=== PATIENT | male | born 1960 | race African-American/Black ===

== ENCOUNTER 2018-04-30 17:11 | Inpatient (IN) | payer OTHER ==
[2018-04-30 19:06] VITALS: BMI 24.3
[2018-04-30] MEDS ORDERED: MELATONIN 5 MG TABLETS PO PRN (22:00)
--- NOTE | 2018-04-30 22:31 | HP ---
CIWA Score - CIWA Score Nausea/Vomitin-No Nausea/No Vomiting Muscle Tremors: 4-Moderate,w/Arms Extend Anxiety: 4-Mod. Anxious/Guarded Agitation: 4-Moderately Restless Paroxysmal Sweats: 3 Orientation: 1-Uncertain about Date Tacttile Disturbances: 0-None Auditory Disturbances: 0-None Visual Disturbances: 0-None Headache: 0-None Present CIWA-Ar Total Score: 16 Admission ROS BHS - HPI Chief Complaint: SEEKING DETOX TXMENT FOR ETOH WITHDRAWAL SX'S Allergies/Adverse Reactions: Allergies Allergy/AdvReac Type Severity Reaction Status Date / Time No Known Allergies Allergy Verified 04/30/18 22:23 History of Present Illness: 57 Y.O. MALE WITH LONG HX/O ALCOHOLISM HERE FOR DETOX. CLIENT IS KNOWN TO THIS PROGRAM. LAST HERE OVER A YEAR AGO. SELF REFERRED. DENIES ANY SIGNIFICANT PERIOD OF CLEAN TIME. DENIES HX/O SEIZURES, BLACK OUTS, SI/HI, DT. A/V HALLUCINATIONS Exam Limitations: No Limitations - Ebola screening Have you traveled outside of the country in the last 21 days: No (N) Have you had contact with anyone from an Ebola affected area: No Have you been sick,other than usual withdrawal symptoms: No Do you have a fever: No - Review of Systems Constitutional: Chills, Loss of Appetite, Night Sweats, Changes in sleep, Unintentional Wgt. Loss EENT: reports: Tearing, Dental Problems (MISSING TEETH) Respiratory: reports: No Symptoms reported Cardiac: reports: No Symptoms Reported GI: reports: Poor Appetite : reports: No Symptoms Reported Musculoskeletal: reports: Back Pain Integumentary: reports: Sweating Neuro: reports: No Symptoms reported Endocrine: reports: No Symptoms Reported Hematology: reports: No Symptoms Reported Psychiatric: reports: Anxious, Depressed Other Systems: Reviewed and Negative Patient History - Patient Medical History Hx Anemia: No Hx Asthma: No Hx Chronic Obstructive Pulmonary Disease (COPD): No Hx Cancer: No Hx Cardiac Disorders: No Hx Congestive Heart Failure: No Hx Hypertension: No Hx Hypercholesterolemia: No HX Cerebrovascular Accident: No Hx Seizures: No Hx Dementia: No Hx Diabetes: No Hx Gastrointestinal Disorders: No Hx Genitourinary Disorders: No Hx Sexually Transmitted Disorders: No Hx Renal Disease (ESRD): No Hx Thyroid Disease: No Hx Human Immunodeficiency Virus (HIV): No Hx Hepatitis C: No Hx Depression: Yes Hx Suicide Attempt: No Hx Schizophrenia: No Other Medical History: ANXIETY - Patient Surgical History Past Surgical History: No Hx Neurologic Surgery: No Hx Cataract Extraction: No Hx Cardiac Surgery: No Hx Lung Surgery: No Hx Breast Surgery: No Hx Breast Biopsy: No Hx Abdominal Surgery: No Hx Appendectomy: No Hx Cholecystectomy: No Hx Genitourinary Surgery: No Hx Section: No Hx Orthopedic Surgery: No Other Surgical History: fx, left mandible in 2011 Anesthesia Reaction: No - PPD History Previous Implant?: Yes Documented Results: Negative w/o proof Implanted On Prior [facility] Admission?: No PPD to be Administered?: Yes - Smoking Cessation Smoking history: Current every day smoker Have you smoked in the past 12 months: Yes Aproximately how many cigarettes per day: 10 Cigars Per Day: 0 Hx Chewing Tobacco Use: No Initiated information on smoking cessation: Yes 'Breaking Loose' booklet given: 04/30/18 - Substance & Tx. History Hx Alcohol Use: Yes Hx Substance Use: Yes Substance Use Type: Alcohol, Cocaine Hx Substance Use Treatment: Yes ([facility]) - Substances Abused Cocaine Route: Inhalation Frequency: Daily Amount used: $300.00 Age of first use: 22 Date of Last Use: 04/30/18 BEER Route: Oral Frequency: Daily Amount used: 10-40 OZ Age of first use: 22 Date of Last Use: 04/30/18 Family Disease History - Family Disease History Family History: Denies Admission Physical Exam S - Vital Signs Vital Signs: Vital Signs - 24 hr 04/30/18 19:04 Temperature 97.9 F Pulse Rate 80 Respiratory 18 Rate Blood Pressure 137/80 - Physical General Appearance: Yes: Appropriately Dressed, Disheveled, Mild Distress, Tremorous (FELT) HEENTM: Yes: EOMI, Normocephalic, Normal Voice, MELINDA, Pharynx Normal, Rhinorrhea Respiratory: Yes: Chest Non-Tender, Lungs Clear, Normal Breath Sounds, No Respiratory Distress, No Accessory Muscle Use Neck: Yes: No masses,lesions,Nodules, Supple, Trachea in good position Breast: Yes: Breast Exam Deferred Cardiology: Yes: Regular Rhythm, Regular Rate, S1, S2 Abdominal: Yes: Normal Bowel Sounds, Non Tender, Flat, Soft Genitourinary: Yes: Within Normal Limits Back: Yes: Normal Inspection Musculoskeletal: Yes: full range of Motion, Gait Steady Extremities: Yes: Normal Capillary Refill, Normal Range of Motion, Non-Tender, Tremors Neurological: Yes: electronics instructor II-XII NML intact, Fully Oriented, Alert, Motor Strength 5/5 Integumentary: Yes: Normal Color, Dry, Warm Lymphatic: Yes: Within Normal Limits - Diagnostic (1) Alcohol dependence with uncomplicated withdrawal Current Visit: Yes Status: Acute (2) Cocaine dependence, uncomplicated Current Visit: Yes Status: Chronic (3) Nicotine dependence Current Visit: Yes Status: Chronic Qualifiers: Nicotine product type: cigarettes Substance use status: uncomplicated Qualified Code(s): F17.210 - Nicotine dependence, cigarettes, uncomplicated (4) Substance induced mood disorder Current Visit: Yes Status: Suspected Cleared for Admission [facility] - Detox or Rehab [facility] Level of Care: Medically Managed Detox Regimen/Protocol: Librium Claeared for Rehab Admission: No [facility] Breath Alcohol Content Breath Alcohol Content: 0 Urine Drug Screen - Results Drug Screen Negative: No Urine Drug Screen Results: FREDDY-Cocaine, BZO-Benzodiazepines
[2018-04-30] MEDS ORDERED: chlordiazePOXIDE HCL 25 MG CAPSULE PO PRN (22:40)
[2018-04-30] MEDS ORDERED: IBUPROFEN 400 MG TABLET (FP) PO PRN (22:40)
[2018-04-30] MEDS ORDERED: NICOTINE POLACRILEX 2 MG GUM BC PRN (22:40)
[2018-04-30] MEDS ORDERED: hydrOXYzine PAMOATE 50 MG CAPSULE (FP) PO PRN (22:40)
[2018-04-30] MEDS ORDERED: MAGNESIUM HYDROX 2400MG/30ML ORAL SUSPENSION 30 ML CUP PO PRN (22:40)
[2018-04-30] MEDS ORDERED: P-EPHED 60MG/TRIPROLIDI 2.5MG TABLET PO PRN (22:40)
[2018-04-30] MEDS ORDERED: MAG HYDROX/AL HYDROX/SIMETH 30 ML UNIT-DOSE CUP PO PRN (22:40)
[2018-04-30] MEDS ORDERED: MAGNESIUM CITRATE 300 ML BOTTLE PO PRN (22:40)
[2018-04-30] MEDS ORDERED: LOPERAMIDE HCL 2 MG CAPSULE PO PRN (22:40)
[2018-04-30] MEDS ORDERED: guaiFENesin/D-METHORPHAN HB 10 ML UNIT-DOSE CUPS PO PRN (22:40)
[2018-04-30] MEDS ORDERED: ACETAMINOPHEN 325 MG TABLET (FP) PO PRN (22:40)
[2018-04-30] MEDS ORDERED: MENTHOL/PHENOL 1 EACH UD MM PRN (22:40)
[2018-05-01] MEDS: chlordiazePOXIDE HCL 25 MG CAPSULE PO SCH ×5 (00:39→22:43)
[2018-05-01 06:31] LABS: URINE APPEARANCE CLEAR; URINE BILIRUBIN NEGATIVE (<2.0 mg/dL); URINE BLOOD NEGATIVE (NEGATIVE); URINE COLOR DKYELLOW; URINE GLUCOSE (UA) NEGATIVE (NEGATIVE); URINE KETONE NEGATIVE (NEGATIVE); URINE LEUK ESTERASE NEGATIVE (NEGATIVE); URINE NITRITE NEGATIVE (NEGATIVE); URINE PROTEIN NEGATIVE (NEGATIVE); URINE UROBILINOGEN 4.0 E.U/dl mg/dL (0.2-1.0)
[2018-05-01 10:16] LABS: HEMATOCRIT 38.4 % (35.4-49); HEMOGLOBIN 12.9 GM/dL (11.7-16.9); MCH 31.6 pg (25.7-33.7); MCHC 33.6 g/dl (32.0-35.9); MEAN PLT VOLUME 8.9 fl (7.5-11.1); PLATELET COUNT 221 K/MM3 (134-434); RBC 4.08 M/mm3 (4.00-5.60); RDW 15.1 % (11.9-15.9); WHITE BLOOD COUNT 6.5 K/mm3 (4.0-10.0)
[2018-05-01] MEDS: PRENATAL VITAMINS W/ FOLIC ACID TABLET (FP) PO SCH (10:27)
[2018-05-01] MEDS: NICOTINE 14 MG/24 HOURS TOPICAL PATCH TD SCH (10:29)
[2018-05-01 10:40] LABS: CHLORIDE 107 mmol/L (98-107); POTASSIUM 3.9 mmol/L (3.5-5.1); SODIUM 142 mmol/L (136-145)
--- NOTE | 2018-05-01 11:01 | CONSULT ---
[facility] Psychiatric Consult - Data Date of interview: 05/01/18 Admission source: [facility] Identifying data: This is 57 years old male, single father of two, homeless, on PA, with psychiatric hospYtalization history, with long history of Alcohol, Cocoaine and Nicotine dependence. Patient is seeking for detox reporting withdrawal symptoms. Substance Abuse History: Smoking history: Current every day smoker. Have you smoked in the past 12 months: Yes. Aproximately how many cigarettes per day: 10. Cigars Per Day: 0. Hx Chewing Tobacco Use: No. Initiated information on smoking cessation: Yes. 'Breaking Loose' booklet given: 04/30/18. - Substance & Tx. History. Hx Alcohol Use: Yes. Hx Substance Use: Yes. Substance Use Type : Alcohol, Cocaine. Hx Substance Use Treatment: Yes ([facility]). - Substances Abused. Cocaine. Route: Inhalation. Frequency: Daily. Amount used: $ 300.00. Age of first use: 22. Date of Last Use: 04/30/18. BEER. Route: Oral. Frequency: Daily. Amount used: 10-40 OZ. Age of first use: 22. Date of Last Use: 04/30/18 Medical History: Denies significant medical issues Psychiatric History: Denies past psychiatric history Physical/Sexual Abuse/Trauma History: Denies Additional Comment: Observation. Detox Unit Care Protocol Mental Status Exam - Mental Status Exam Alert and Oriented to: Person Cognitive Function: Fair Patient Appearance: Unkempt Mood: Sad Affect: Flat Patient Behavior: Sedated Speech Pattern: Delayed Voice Loudness: Mildly Soft/Quiet Thought Process: Circumstantial Thought Disorder: Being Controlled Hallucinations: Denies Suicidal Ideation: Denies Homicidal Ideation: Denies Insight/Judgement: Fair Sleep: Difficulty falling asleep Appetite: Fair Muscle strength/Tone: Mild Hypotonicity Gait/Station: Shuffling Additional Comments: Observation. Detox Unit Care Protocol Psychiatric Findings - Problem List ([place] 1, 2,3) (1) Alcohol dependence with uncomplicated withdrawal Current Visit: Yes Status: Acute (2) Cocaine dependence, uncomplicated Current Visit: Yes Status: Chronic (3) Nicotine dependence Current Visit: Yes Status: Chronic Qualifiers: Nicotine product type: cigarettes Substance use status: uncomplicated Qualified Code(s): F17.210 - Nicotine dependence, cigarettes, uncomplicated (4) Substance induced mood disorder Current Visit: Yes Status: Suspected (5) Alcohol dependence Current Visit: No Status: Acute (6) Cocaine dependence Current Visit: No Status: Acute (7) Major depressive disorder, single episode Current Visit: No Status: Acute - Initial Treatment Plan Initial Treatment Plan: Observation. Detox Unit Care Protocol
--- NOTE | 2018-05-01 11:39 | PN ---
[facility] CIWA - CIWA Score Nausea/Vomitin-Mild Nausea/No Vomiting Muscle Tremors: 4-Moderate,w/Arms Extend Anxiety: 4-Mod. Anxious/Guarded Agitation: 3 Paroxysmal Sweats: 1-Minimal Palms Moist Orientation: 0-Oriented Tacttile Disturbances: 1-Very Mild Itch/Numbness Auditory Disturbances: 0-None Visual Disturbances: 0-None Headache: 0-None Present CIWA-Ar Total Score: 14 S Progress Note (SOAP) Subjective: Vital Signs Temperature 96 F L 05/01/18 09:06 Pulse Rate 73 05/01/18 09:06 Respiratory Rate 18 05/01/18 09:06 Blood Pressure 115/58 05/01/18 09:06 O2 Sat by Pulse Oximetry (%) Laboratory Last Values WBC 6.5 K/mm3 (4.0-10.0) 05/01/18 08:00 RBC 4.08 M/mm3 (4.00-5.60) 05/01/18 08:00 Hgb 12.9 GM/dL (11.7-16.9) 05/01/18 08:00 Hct 38.4 % (35.4-49) 05/01/18 08:00 MCV 94.0 fl (80-96) 05/01/18 08:00 MCH 31.6 pg (25.7-33.7) 05/01/18 08:00 MCHC 33.6 g/dl (32.0-35.9) 05/01/18 08:00 RDW 15.1 % (11.9-15.9) 05/01/18 08:00 Plt Count 221 K/MM3 (134-434) 05/01/18 08:00 MPV 8.9 fl (7.5-11.1) 05/01/18 08:00 Sodium 142 mmol/L (136-145) 05/01/18 08:00 Potassium 3.9 mmol/L (3.5-5.1) 05/01/18 08:00 Chloride 107 mmol/L (98-107) 05/01/18 08:00 Urine Color Dkyellow 04/30/18 22:00 Urine Appearance Clear 04/30/18 22:00 Urine pH 6.0 (5.0-8.0) 04/30/18 22:00 Ur Specific [place] 1.018 (1.001-1.035) 04/30/18 22:00 Urine Protein Negative (NEGATIVE) 04/30/18 22:00 Urine Glucose (UA) Negative (NEGATIVE) 04/30/18 22:00 Urine Ketones Negative (NEGATIVE) 04/30/18 22:00 Urine Blood Negative (NEGATIVE) 04/30/18 22:00 Urine Nitrite Negative (NEGATIVE) 04/30/18 22:00 Urine Bilirubin Negative (<2.0 mg/dL) 04/30/18 22:00 Urine Urobilinogen 4.0 e.u/dl mg/dL (0.2-1.0) 04/30/18 22:00 Ur Leukocyte Esterase Negative (NEGATIVE) 04/30/18 22:00 lab noted Objective: 05/01/18 11:40 tremor sweat trouble sleep at night restlessness anxiety Assessment: 05/01/18 11:40 withdrawal sx Plan: continue detox
--- NOTE | 2018-05-01 11:42 | EKG ---
Test Reason : Blood Pressure : / mmHG Vent. Rate : 068 BPM Atrial Rate : 068 BPM P-R Int : 128 ms QRS Dur : 102 ms QT Int : 406 ms P-R-T Axes : 073 070 064 degrees QTc Int : 431 ms NORMAL SINUS RHYTHM NORMAL ECG NO PREVIOUS ECGS AVAILABLE Confirmed by ELBA ROSA MD ([id number]) on 05/01/2018 11:42:00 AM Referred By: Confirmed By:ELBA ROSA MD
[2018-05-01 11:49] LABS: ALBUMIN 3.2 g/dl (3.4-5.0); ALK PHOS 63 U/L (45-117); BILIRUBIN,TOTAL 0.3 mg/dL (0.2-1.0); BLOOD UREA NITROGEN 11 mg/dL (7-18); GLUCOSE,RANDOM 66 mg/dL (74-106); SGOT/AST 21 U/L (15-37); SGPT/ALT 26 U/L (12-78); TOT PROT 6.2 g/dl (6.4-8.2)
[2018-05-01 12:19] LABS: ANION GAP 7 (8-16); CO2 28 mmol/L (21-32)
[2018-05-01] MEDS ORDERED: QUEtiapine FUMARATE 50 MG TABLET PO SCH (22:00)
[2018-05-01] MEDS ORDERED: THIAMINE HCL 100 MG TABLET (FP) PO SCH (22:00)
[2018-05-02] MEDS: chlordiazePOXIDE HCL 25 MG CAPSULE PO SCH ×3 (05:47→18:09)
[2018-05-02] MEDS: PRENATAL VITAMINS W/ FOLIC ACID TABLET (FP) PO SCH (11:13)
[2018-05-02] MEDS: NICOTINE 14 MG/24 HOURS TOPICAL PATCH TD SCH (11:25)
--- NOTE | 2018-05-02 13:48 | PN ---
S CIWA - CIWA Score Nausea/Vomitin Muscle Tremors: 3 Anxiety: 3 Agitation: 2 Paroxysmal Sweats: 1-Minimal Palms Moist Orientation: 1-Uncertain about Date Tacttile Disturbances: 1-Very Mild Itch/Numbness Auditory Disturbances: 1-Very Mild Visual Disturbances: 0-None Headache: 2-Mild CIWA-Ar Total Score: 17 S Progress Note (SOAP) Subjective: alert,irritable,anxious,interrupted sleep,tremor Objective: 05/02/18 13:46 Vital Signs Temperature 95.9 F L 05/02/18 11:23 Pulse Rate 74 05/02/18 11:23 Respiratory Rate 20 05/02/18 11:23 Blood Pressure 127/72 05/02/18 11:23 O2 Sat by Pulse Oximetry (%) 05/02/18 13:46 Laboratory Last Values WBC 6.5 K/mm3 (4.0-10.0) 05/01/18 08:00 RBC 4.08 M/mm3 (4.00-5.60) 05/01/18 08:00 Hgb 12.9 GM/dL (11.7-16.9) 05/01/18 08:00 Hct 38.4 % (35.4-49) 05/01/18 08:00 MCV 94.0 fl (80-96) 05/01/18 08:00 MCH 31.6 pg (25.7-33.7) 05/01/18 08:00 MCHC 33.6 g/dl (32.0-35.9) 05/01/18 08:00 RDW 15.1 % (11.9-15.9) 05/01/18 08:00 Plt Count 221 K/MM3 (134-434) 05/01/18 08:00 MPV 8.9 fl (7.5-11.1) 05/01/18 08:00 Sodium 142 mmol/L (136-145) 05/01/18 08:00 Potassium 3.9 mmol/L (3.5-5.1) 05/01/18 08:00 Chloride 107 mmol/L (98-107) 05/01/18 08:00 Carbon Dioxide 28 mmol/L (21-32) 05/01/18 08:00 Anion Gap 7 (8-16) L 05/01/18 08:00 BUN 11 mg/dL (7-18) D 05/01/18 08:00 Creatinine 1.0 mg/dL (0.7-1.3) 05/01/18 08:00 Creat Clearance w eGFR > 60 (>60) 05/01/18 08:00 Random Glucose 66 mg/dL (74-106) L 05/01/18 08:00 Calcium 9.0 mg/dL (8.5-10.1) 05/01/18 08:00 Total Bilirubin 0.3 mg/dL (0.2-1.0) D 05/01/18 08:00 AST 21 U/L (15-37) D 05/01/18 08:00 ALT 26 U/L (12-78) D 05/01/18 08:00 Alkaline Phosphatase 63 U/L (45-117) D 05/01/18 08:00 Total Protein 6.2 g/dl (6.4-8.2) L D 05/01/18 08:00 Albumin 3.2 g/dl (3.4-5.0) L D 05/01/18 08:00 Urine Color Dkyellow 04/30/18 22:00 Urine Appearance Clear 04/30/18 22:00 Urine pH 6.0 (5.0-8.0) 04/30/18 22:00 Ur Specific [place] 1.018 (1.001-1.035) 04/30/18 22:00 Urine Protein Negative (NEGATIVE) 04/30/18 22:00 Urine Glucose (UA) Negative (NEGATIVE) 04/30/18 22:00 Urine Ketones Negative (NEGATIVE) 04/30/18 22:00 Urine Blood Negative (NEGATIVE) 04/30/18 22:00 Urine Nitrite Negative (NEGATIVE) 04/30/18 22:00 Urine Bilirubin Negative (<2.0 mg/dL) 04/30/18 22:00 Urine Urobilinogen 4.0 e.u/dl mg/dL (0.2-1.0) 04/30/18 22:00 Ur Leukocyte Esterase Negative (NEGATIVE) 04/30/18 22:00 RPR Titer Nonreactive (NONREACTIVE) 05/01/18 08:00 Assessment: 05/02/18 13:47 withdrawal symptom Plan: continue detox,initial glucose is 60,bgm in am
[2018-05-02 17:50] VITALS: BP 140/76; PULSE 79; TEMP 97.5
--- NOTE | 2018-05-02 22:06 | DS ---
<Lisa Alegre - Last Filed: 05/02/18 22:24> [facility] Detox Discharge Summary Admission Date: 04/30/18 Discharge Date: 05/02/18 (AMA) - History Present History: Alcohol Dependence, Cocaine Dependence Additional Comments: Patient insistent upon leaving detox despite encouragement to stay. Risks of leaving, prior to completion of detox and supportive referral, explained to patient and patient insisted on still leaving AMA. Patient advised to go to nearest ER if if begins to develop intolerable detox symptoms. patient left detox unit in stable medial condition. Pertinent Past History: Pertinent past hx alcohol use disorder , cocaine use disorder, nicotine use disorder, and major depressive disorder. No hx suicide ideation. - Physical Exam Results Vital Signs: Vital Signs Temperature 97.5 F L 05/02/18 17:50 Pulse Rate 79 05/02/18 17:50 Respiratory Rate 18 05/02/18 17:50 Blood Pressure 140/76 05/02/18 17:50 O2 Sat by Pulse Oximetry (%) Pertinent Admission Physical Exam Findings: Laboratory Tests 04/30/18 05/01/18 05/01/18 22:00 08:00 08:00 WBC 6.5 RBC 4.08 Hgb 12.9 Hct 38.4 MCV 94.0 MCH 31.6 MCHC 33.6 RDW 15.1 Plt Count 221 MPV 8.9 Sodium 142 Potassium 3.9 Chloride 107 Carbon Dioxide 28 Anion Gap 7 L BUN 11 D Creatinine 1.0 Creat Clearance w eGFR > 60 Random Glucose 66 L Calcium 9.0 Total Bilirubin 0.3 D AST 21 D ALT 26 D Alkaline Phosphatase 63 D Total Protein 6.2 L D Albumin 3.2 L D Urine Color Dkyellow Urine Appearance Clear Urine pH 6.0 Ur Specific [place] 1.018 Urine Protein Negative Urine Glucose (UA) Negative Urine Ketones Negative Urine Blood Negative Urine Nitrite Negative Urine Bilirubin Negative Urine Urobilinogen 4.0 e.u/dl Ur Leukocyte Esterase Negative RPR Titer 05/01/18 08:00 WBC RBC Hgb Hct MCV MCH MCHC RDW Plt Count MPV Sodium Potassium Chloride Carbon Dioxide Anion Gap BUN Creatinine Creat Clearance w eGFR Random Glucose Calcium Total Bilirubin AST ALT Alkaline Phosphatase Total Protein Albumin Urine Color Urine Appearance Urine pH Ur Specific [place] Urine Protein Urine Glucose (UA) Urine Ketones Urine Blood Urine Nitrite Urine Bilirubin Urine Urobilinogen Ur Leukocyte Esterase RPR Titer Nonreactive - Treatment Hospital Course: Detoxed Safely Patient has Accepted a Rehab Referral to: Patient has refused a referral. - Medication Discharge Medications: Ambulatory Orders Quetiapine Fumarate [Seroquel -] 50 mg PO HS #30 tablet 05/01/18 - Diagnosis (1) Nicotine dependence Status: Chronic Qualifiers: Nicotine product type: cigarettes Substance use status: uncomplicated Qualified Code(s): F17.210 - Nicotine dependence, cigarettes, uncomplicated (2) Alcohol dependence Status: Acute Qualifiers: Complication of substance-induced condition: uncomplicated (3) Cocaine dependence Status: Acute Qualifiers: Substance use status: uncomplicated Qualified Code(s): F14.20 - Cocaine dependence, uncomplicated - AMA Did Patient Leave Against Medical Advice: Yes (Patient refused to stay to complete detox regimine. ) <Charla Corona - Last Filed: 05/04/18 08:22> [facility] Detox Discharge Summary Admission Date: 04/30/18 - Physical Exam Results Vital Signs: Vital Signs Temperature 97.5 F L 05/02/18 17:50 Pulse Rate 79 05/02/18 17:50 Respiratory Rate 18 05/02/18 17:50 Blood Pressure 140/76 05/02/18 17:50 O2 Sat by Pulse Oximetry (%) - Diagnosis (1) Alcohol dependence with uncomplicated withdrawal Status: Acute (2) Nicotine dependence Status: Chronic Qualifiers: Nicotine product type: cigarettes Substance use status: uncomplicated Qualified Code(s): F17.210 - Nicotine dependence, cigarettes, uncomplicated (3) Cocaine dependence Status: Acute Qualifiers: Substance use status: uncomplicated Qualified Code(s): F14.20 - Cocaine dependence, uncomplicated
[2018-05-02] MEDS ORDERED: chlordiazePOXIDE 5 MG CAPSULE PO SCH (23:00)
[2018-05-03] MEDS ORDERED: chlordiazePOXIDE HCL 10 MG CAPSULE PO SCH (23:00)
== END 2018-05-02 07:50 | disposition left against medical advice (07) | DRG 770 ==
LOC: YASAS 17:11 → Y6N 21:15
PROVIDERS: ADMIT Surgery; ATTEND Surgery
PROC: HZ2ZZZZ Detoxification Services for Substance Abuse Treatment (ICD-10-PCS; principal; 2018-04-30)
DX: F10.230 Alcohol dependence with withdrawal, uncomplicated (principal); F14.20 Cocaine dependence, uncomplicated; F17.210 Nicotine dependence, cigarettes, uncomplicated; F19.24 Other psychoactive substance dependence with psychoactive substance-induced mood disorder; F32.9 Major depressive disorder, single episode, unspecified
CPT/HCPCS: 36415; 80053; 81003; 85027; 86593; 93005; 93010

== ENCOUNTER 2018-06-20 15:02 | Inpatient (IN) | payer OTHER ==
[2018-06-20 16:52] VITALS: BMI 24.3
--- NOTE | 2018-06-20 17:09 | HP ---
CIWA Score - CIWA Score Nausea/Vomitin-No Nausea/No Vomiting Muscle Tremors: 2 Anxiety: 3 Agitation: 3 Paroxysmal Sweats: 2 Orientation: 0-Oriented Tacttile Disturbances: 1-Very Mild Itch/Numbness Auditory Disturbances: 0-None Visual Disturbances: 0-None Headache: 0-None Present CIWA-Ar Total Score: 11 Admission ROS BHS - HPI Chief Complaint: " I want to get my life together ." Allergies/Adverse Reactions: Allergies Allergy/AdvReac Type Severity Reaction Status Date / Time No Known Allergies Allergy Verified 06/20/18 16:38 History of Present Illness: 57 yo male with hx of crack /cocaine, and alcohol dependence is here seeking detox. Last detox [facility] 04/30/18 - 05/02/18 and left AMA. Reports hx of depression. Denies hx of seizures or blackouts. Denies suicidal / homicidal ideation or hx of suicide attempt. Exam Limitations: No Limitations - Ebola screening Have you traveled outside of the country in the last 21 days: No (N) Have you had contact with anyone from an Ebola affected area: No Have you been sick,other than usual withdrawal symptoms: No Do you have a fever: No - Review of Systems Constitutional: Chills, Loss of Appetite, Changes in sleep, Unintentional Wgt. Loss (10 lbs) EENT: reports: Dental Problems (missing teeth) Respiratory: reports: No Symptoms reported Cardiac: reports: No Symptoms Reported GI: reports: Poor Appetite, Poor Fluid Intake : reports: No Symptoms Reported Musculoskeletal: reports: No Symptoms Reported Integumentary: reports: No Symptoms Reported Neuro: reports: No Symptoms reported Endocrine: reports: Increased Thirst Hematology: reports: No Symptoms Reported Psychiatric: reports: Depressed Other Systems: Reviewed and Negative Patient History - Patient Medical History Hx Anemia: No Hx Asthma: No Hx Chronic Obstructive Pulmonary Disease (COPD): No Hx Cancer: No Hx Cardiac Disorders: No Hx Congestive Heart Failure: No Hx Hypertension: No Hx Hypercholesterolemia: No Hx Pacemaker: No HX Cerebrovascular Accident: No Hx Seizures: No Hx Dementia: No Hx Diabetes: No Hx Gastrointestinal Disorders: No Hx Liver Disease: No Hx Genitourinary Disorders: No Hx Sexually Transmitted Disorders: No Hx Renal Disease (ESRD): No Hx Thyroid Disease: No Hx Human Immunodeficiency Virus (HIV): No (last tested 4 months, declines testing ) Hx Hepatitis C: No Hx Depression: Yes Hx Suicide Attempt: No Hx Schizophrenia: No - Patient Surgical History Past Surgical History: No Hx Neurologic Surgery: No Hx Cataract Extraction: No Hx Cardiac Surgery: No Hx Lung Surgery: No Hx Breast Surgery: No Hx Breast Biopsy: No Hx Abdominal Surgery: No Hx Appendectomy: No Hx Cholecystectomy: No Hx Genitourinary Surgery: No Hx Section: No Hx Orthopedic Surgery: No Other Surgical History: fx, left mandible in 2011 Anesthesia Reaction: No - PPD History Previous Implant?: Yes Documented Results: Positive w/o proof PPD to be Administered?: No - Smoking Cessation Smoking history: Current every day smoker Have you smoked in the past 12 months: Yes Aproximately how many cigarettes per day: 10 Cigars Per Day: 0 Hx Chewing Tobacco Use: No Initiated information on smoking cessation: Yes 'Breaking Loose' booklet given: 06/20/18 - Substance & Tx. History Hx Alcohol Use: Yes Hx Substance Use: Yes Substance Use Type: Alcohol, Cocaine Hx Substance Use Treatment: Yes (Last detox [facility] 04/30/18 - 05/02/18 and left AMA) - Substances Abused Alcohol Route: Oral Frequency: Daily Amount used: LIQUOR- 3 PINTS, BEER- BEER- 3 SIX PACKS Age of first use: 28 Date of Last Use: 06/20/18 Cocaine Route: Inhalation Frequency: Daily Amount used: $300 WORTH Age of first use: 28 Date of Last Use: 06/20/18 Family Disease History - Family Disease History Family Disease History: Other: Father (, cancer ), Mother (, homicide ) Admission Physical Exam S - Vital Signs Vital Signs: Vital Signs - 24 hr 06/20/18 16:29 Temperature 97.8 F Pulse Rate 85 Respiratory 18 Rate Blood Pressure 127/78 - Physical General Appearance: Yes: Disheveled, Thin, Anxious HEENTM: Yes: EOMI, Hearing grossly Normal, Normal ENT Inspection, Normocephalic , Normal Voice, MELINDA, Pharynx Normal, Tm's normal, Other (poor dentition) Respiratory: Yes: Chest Non-Tender, Lungs Clear, Normal Breath Sounds, No Respiratory Distress, No Accessory Muscle Use Neck: Yes: Within Normal Limits Breast: Yes: Breast Exam Deferred Cardiology: Yes: Regular Rhythm, Regular Rate Abdominal: Yes: Within Normal Limits Genitourinary: Yes: Within Normal Limits Back: Yes: Normal Inspection Musculoskeletal: Yes: full range of Motion, Gait Steady, Pelvis Stable Extremities: Yes: Normal Capillary Refill, Normal Inspection, Normal Range of Motion, Non-Tender Neurological: Yes: social services technician II-XII NML intact, Fully Oriented, Alert, Motor Strength 5/5, Normal Response, Depressed Affect Integumentary: Yes: Normal Color, Warm, Diaphoresis Lymphatic: Yes: Within Normal Limits - Diagnostic (1) Depressed mood Current Visit: Yes Status: Acute (2) Alcohol dependence with uncomplicated withdrawal Current Visit: Yes Status: Acute (3) Cocaine dependence Current Visit: Yes Status: Acute Qualifiers: Substance use status: uncomplicated Qualified Code(s): F14.20 - Cocaine dependence, uncomplicated (4) Nicotine dependence Current Visit: Yes Status: Chronic Qualifiers: Nicotine product type: cigarettes Substance use status: uncomplicated Qualified Code(s): F17.210 - Nicotine dependence, cigarettes, uncomplicated Cleared for Admission [facility] - Detox or Rehab [facility] Level of Care: Medically Supervised Detox Regimen/Protocol: Librium [facility] Breath Alcohol Content Breath Alcohol Content: 0 Urine Drug Screen - Results Drug Screen Negative: No Urine Drug Screen Results: FREDDY-Cocaine, BZO-Benzodiazepines
[2018-06-20] MEDS ORDERED: MAGNESIUM CITRATE 300 ML BOTTLE PO PRN (17:15)
[2018-06-20] MEDS ORDERED: MENTHOL/PHENOL 1 EACH UD MM PRN (17:15)
[2018-06-20] MEDS ORDERED: MAGNESIUM HYDROX 2400MG/30ML ORAL SUSPENSION 30 ML CUP PO PRN (17:15)
[2018-06-20] MEDS ORDERED: chlordiazePOXIDE HCL 25 MG CAPSULE PO PRN (17:15)
[2018-06-20] MEDS ORDERED: ACETAMINOPHEN 325 MG TABLET (FP) PO PRN (17:15)
[2018-06-20] MEDS ORDERED: hydrOXYzine PAMOATE 50 MG CAPSULE (FP) PO PRN (17:15)
[2018-06-20] MEDS ORDERED: LOPERAMIDE HCL 2 MG CAPSULE PO PRN (17:15)
[2018-06-20] MEDS ORDERED: IBUPROFEN 400 MG TABLET (FP) PO PRN (17:15)
[2018-06-20] MEDS ORDERED: P-EPHED 60MG/TRIPROLIDI 2.5MG TABLET PO PRN (17:15)
[2018-06-20] MEDS ORDERED: NICOTINE POLACRILEX 2 MG GUM BC PRN (17:15)
[2018-06-20] MEDS ORDERED: guaiFENesin/D-METHORPHAN HB 10 ML UNIT-DOSE CUPS PO PRN (17:15)
[2018-06-20] MEDS ORDERED: MAG HYDROX/AL HYDROX/SIMETH 30 ML UNIT-DOSE CUP PO PRN (17:15)
[2018-06-20] MEDS ORDERED: chlordiazePOXIDE HCL 25 MG CAPSULE PO ONE (17:45)
[2018-06-20] MEDS ORDERED: MELATONIN 5 MG TABLETS PO PRN (22:00)
[2018-06-20] MEDS: THIAMINE HCL 100 MG TABLET (FP) PO SCH (22:53)
[2018-06-20] MEDS: chlordiazePOXIDE HCL 25 MG CAPSULE PO SCH (22:53)
[2018-06-21] MEDS: chlordiazePOXIDE HCL 25 MG CAPSULE PO SCH ×4 (06:47→23:42)
[2018-06-21 10:18] LABS: HEMATOCRIT 41.6 % (35.4-49); HEMOGLOBIN 14.1 GM/dL (11.7-16.9); MCH 31.2 pg (25.7-33.7); MCHC 33.9 g/dl (32.0-35.9); MEAN PLT VOLUME 9.3 fl (7.5-11.1); PLATELET COUNT 159 K/MM3 (134-434); RBC 4.52 M/mm3 (4.00-5.60); RDW 13.3 % (11.9-15.9); WHITE BLOOD COUNT 5.1 K/mm3 (4.0-10.0)
[2018-06-21] MEDS: PRENATAL VITAMINS W/ FOLIC ACID TABLET (FP) PO SCH (10:37)
[2018-06-21] MEDS: NICOTINE 14 MG/24 HOURS TOPICAL PATCH TD SCH (10:37)
[2018-06-21 10:40] LABS: CHLORIDE 105 mmol/L (98-107); POTASSIUM 3.8 mmol/L (3.5-5.1); SODIUM 141 mmol/L (136-145)
[2018-06-21 10:43] LABS: URINE APPEARANCE TURBID; URINE BILIRUBIN NEGATIVE (<2.0 mg/dL); URINE COLOR YELLOW; URINE GLUCOSE (UA) NEGATIVE (NEGATIVE); URINE KETONE NEGATIVE (NEGATIVE); URINE LEUK ESTERASE TRACE (NEGATIVE); URINE NITRITE NEGATIVE (NEGATIVE); URINE PROTEIN NEGATIVE (NEGATIVE); URINE UROBILINOGEN 4.0 E.U/dl mg/dL (0.2-1.0)
[2018-06-21 10:54] LABS: EPI CELLS RARE /HPF (FEW); URINE BACTERIA MODERATE /hpf (NONE SEEN); URINE MUCUS MANY
[2018-06-21 10:58] LABS: ALBUMIN 3.3 g/dl (3.4-5.0); ALK PHOS 72 U/L (45-117); ANION GAP 6 (8-16); BILIRUBIN,TOTAL 0.5 mg/dL (0.2-1.0); BLOOD UREA NITROGEN 12 mg/dL (7-18); CALCIUM 8.9 mg/dL (8.5-10.1); CO2 30 mmol/L (21-32); CREATININE 0.9 mg/dL (0.7-1.3); GLUCOSE,RANDOM 78 mg/dL (74-106); SGOT/AST 24 U/L (15-37); SGPT/ALT 37 U/L (12-78); TOT PROT 6.4 g/dl (6.4-8.2)
--- NOTE | 2018-06-21 13:19 | CONSULT ---
[facility] Psychiatric Consult - Data Date of interview: 06/21/18 Admission source: [facility] Identifying data: Readmission to [facility] for this 57 y/o AA male seeking detox treatment on for alcohol and cocaine dependence.Patient is single without dependents,homeless,unemployed and deprived of income. Substance Abuse History: Confriemd by patient in this session.Smoking history: Current every day smoker. Have you smoked in the past 12 months: Yes. Aproximately how many cigarettes per day: 10. Cigars Per Day: 0. Hx Chewing Tobacco Use: No. Initiated information on smoking cessation: Yes. 'Breaking Loose' booklet given: 06/20/18. - Substance & Tx. History. Hx Alcohol Use: Yes. Hx Substance Use: Yes. Substance Use Type: Alcohol, Cocaine. Hx Substance Use Treatment: Yes (Last detox [facility] 04/30/18 - 05/02/18 and left AMA). - Substances Abused. Alcohol. Route: Oral. Frequency: Daily. Amount used: LIQUOR- 3 PINTS, BEER- BEER- 3 SIX PACKS. Age of first use: 28. Date of Last Use: 06/20/18. Cocaine. Route: Inhalation. Frequency: Daily. Amount used : $300 WORTH. Age of first use: 28. Date of Last Use: 06/20/18 Medical History: Patient endorses good general health. Psychiatric History: Patient denies history of psychiatric hospitalizations or suicide attempts.Brief trial of seroquel during incarceration for insomnia.No history of psychiatric OPD care. Physical/Sexual Abuse/Trauma History: Patient denies. Additional Comment: Urine Drug Screen Results: FREDDY-Cocaine, BZO- Benzodiazepines.Noted. Mental Status Exam - Mental Status Exam Alert and Oriented to: Time, Place, Person Cognitive Function: Good Patient Appearance: Well Groomed Mood: Withdrawn, Hopeful, Euthymic Affect: Appropriate, Normal Range Patient Behavior: Fatigued, Cooperative Speech Pattern: Clear Voice Loudness: Normal Thought Process: Intact, Goal Oriented Thought Disorder: Not Present Hallucinations: Denies Suicidal Ideation: Denies Homicidal Ideation: Denies Insight/Judgement: Poor Sleep: Poorly, Difficulty falling asleep Appetite: Good Muscle strength/Tone: Normal Gait/Station: Normal Psychiatric Findings - Problem List ([place] 1, 2,3) (1) Alcohol dependence with uncomplicated withdrawal Current Visit: Yes Status: Acute (2) Cocaine dependence Current Visit: Yes Status: Acute Qualifiers: Substance use status: uncomplicated Qualified Code(s): F14.20 - Cocaine dependence, uncomplicated (3) Nicotine dependence Current Visit: Yes Status: Acute Qualifiers: Nicotine product type: cigarettes Substance use status: uncomplicated Qualified Code(s): F17.210 - Nicotine dependence, cigarettes, uncomplicated (4) Insomnia Current Visit: Yes Status: Acute - Initial Treatment Plan Initial Treatment Plan: Psychoeducation.Sleep hygiene.Detoxification in progress.Seroquel 50 mg po hs (patient's specific request).Side effects/ benefits discussed with the patient.Made aware, in particular, of the potential for metabolic syndrome and sedation.Consent (verbal) given.Observation.
--- NOTE | 2018-06-21 16:19 | PN ---
[facility] CIWA - CIWA Score Nausea/Vomitin-No Nausea/No Vomiting Muscle Tremors: 3 Anxiety: 4-Mod. Anxious/Guarded Agitation: 3 Paroxysmal Sweats: 3 Orientation: 2-Disoriented Date<2 days Tacttile Disturbances: 1-Very Mild Itch/Numbness Auditory Disturbances: 0-None Visual Disturbances: 0-None Headache: 0-None Present CIWA-Ar Total Score: 16 BHS Progress Note (SOAP) Subjective: Tremors, Anxious, Sweating. Objective: PATIENT A & O X 2 (UNCERTAIN ABOUT CURRENT DAY / DATE). PATIENT OBSERVED AMBULATING ON UNIT. NO ACUTE DISTRESS. 06/21/18 16:18 Vital Signs Temperature 97.7 F 06/21/18 14:44 Pulse Rate 80 06/21/18 14:44 Respiratory Rate 18 06/21/18 14:44 Blood Pressure 112/76 06/21/18 14:44 O2 Sat by Pulse Oximetry (%) Laboratory Tests 06/21/18 06/21/18 06/21/18 08:00 08:00 08:00 WBC 5.1 RBC 4.52 Hgb 14.1 Hct 41.6 MCV 92.0 MCH 31.2 MCHC 33.9 RDW 13.3 D Plt Count 159 D MPV 9.3 Sodium 141 Potassium 3.8 Chloride 105 Carbon Dioxide 30 Anion Gap 6 L BUN 12 Creatinine 0.9 Creat Clearance w eGFR > 60 Random Glucose 78 Calcium 8.9 Total Bilirubin 0.5 AST 24 ALT 37 D Alkaline Phosphatase 72 Total Protein 6.4 Albumin 3.3 L Urine Color Urine Appearance Urine pH Ur Specific [place] Urine Protein Urine Glucose (UA) Urine Ketones Urine Blood Urine Nitrite Urine Bilirubin Urine Urobilinogen Ur Leukocyte Esterase Urine WBC (Auto) Urine RBC (Auto) Ur Epithelial Cells Urine Bacteria Urine Mucus RPR Titer Nonreactive 06/21/18 08:20 WBC RBC Hgb Hct MCV MCH MCHC RDW Plt Count MPV Sodium Potassium Chloride Carbon Dioxide Anion Gap BUN Creatinine Creat Clearance w eGFR Random Glucose Calcium Total Bilirubin AST ALT Alkaline Phosphatase Total Protein Albumin Urine Color Yellow Urine Appearance Turbid Urine pH 5.0 Ur Specific [place] 1.024 Urine Protein Negative Urine Glucose (UA) Negative Urine Ketones Negative Urine Blood Negative Urine Nitrite Negative Urine Bilirubin Negative Urine Urobilinogen 4.0 e.u/dl Ur Leukocyte Esterase Trace Urine WBC (Auto) 7 Urine RBC (Auto) 1 Ur Epithelial Cells Rare Urine Bacteria Moderate Urine Mucus Many RPR Titer LABS NOTED. Assessment: 06/21/18 16:18 WITHDRAWAL SYMPTOMS. Plan: CONTINUE DETOX. INCREASE DAILY PO FLUID INTAKE.
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
[2018-06-21] MEDS: QUEtiapine FUMARATE 50 MG TABLET PO SCH (23:41)
[2018-06-21] MEDS: THIAMINE HCL 100 MG TABLET (FP) PO SCH (23:42)
[2018-06-22] MEDS: chlordiazePOXIDE HCL 25 MG CAPSULE PO SCH ×3 (05:23→18:44)
[2018-06-22] MEDS: PRENATAL VITAMINS W/ FOLIC ACID TABLET (FP) PO SCH (10:41)
[2018-06-22] MEDS: NICOTINE 14 MG/24 HOURS TOPICAL PATCH TD SCH (10:42)
--- NOTE | 2018-06-22 13:14 | PN ---
[facility] CIWA - CIWA Score Nausea/Vomitin-No Nausea/No Vomiting Muscle Tremors: 4-Moderate,w/Arms Extend Anxiety: 3 Agitation: 3 Paroxysmal Sweats: 1-Minimal Palms Moist Orientation: 0-Oriented Tacttile Disturbances: 1-Very Mild Itch/Numbness Auditory Disturbances: 0-None Visual Disturbances: 0-None Headache: 0-None Present CIWA-Ar Total Score: 12 BHS Progress Note (SOAP) Subjective: sweat tremor restlessness anxiety Objective: 06/22/18 13:12 Vital Signs Temperature 97.3 F L 06/22/18 06:00 Pulse Rate 62 06/22/18 06:00 Respiratory Rate 18 06/22/18 06:00 Blood Pressure 132/88 06/22/18 06:00 O2 Sat by Pulse Oximetry (%) Laboratory Last Values WBC 5.1 K/mm3 (4.0-10.0) 06/21/18 08:00 RBC 4.52 M/mm3 (4.00-5.60) 06/21/18 08:00 Hgb 14.1 GM/dL (11.7-16.9) 06/21/18 08:00 Hct 41.6 % (35.4-49) 06/21/18 08:00 MCV 92.0 fl (80-96) 06/21/18 08:00 MCH 31.2 pg (25.7-33.7) 06/21/18 08:00 MCHC 33.9 g/dl (32.0-35.9) 06/21/18 08:00 RDW 13.3 % (11.9-15.9) D 06/21/18 08:00 Plt Count 159 K/MM3 (134-434) D 06/21/18 08:00 MPV 9.3 fl (7.5-11.1) 06/21/18 08:00 Sodium 141 mmol/L (136-145) 06/21/18 08:00 Potassium 3.8 mmol/L (3.5-5.1) 06/21/18 08:00 Chloride 105 mmol/L (98-107) 06/21/18 08:00 Carbon Dioxide 30 mmol/L (21-32) 06/21/18 08:00 Anion Gap 6 (8-16) L 06/21/18 08:00 BUN 12 mg/dL (7-18) 06/21/18 08:00 Creatinine 0.9 mg/dL (0.7-1.3) 06/21/18 08:00 Creat Clearance w eGFR > 60 (>60) 06/21/18 08:00 Random Glucose 78 mg/dL (74-106) 06/21/18 08:00 Calcium 8.9 mg/dL (8.5-10.1) 06/21/18 08:00 Total Bilirubin 0.5 mg/dL (0.2-1.0) 06/21/18 08:00 AST 24 U/L (15-37) 06/21/18 08:00 ALT 37 U/L (12-78) D 06/21/18 08:00 Alkaline Phosphatase 72 U/L (45-117) 06/21/18 08:00 Total Protein 6.4 g/dl (6.4-8.2) 06/21/18 08:00 Albumin 3.3 g/dl (3.4-5.0) L 06/21/18 08:00 Urine Color Yellow 06/21/18 08:20 Urine Appearance Turbid 06/21/18 08:20 Urine pH 5.0 (5.0-8.0) 06/21/18 08:20 Ur Specific [place] 1.024 (1.001-1.035) 06/21/18 08:20 Urine Protein Negative (NEGATIVE) 06/21/18 08:20 Urine Glucose (UA) Negative (NEGATIVE) 06/21/18 08:20 Urine Ketones Negative (NEGATIVE) 06/21/18 08:20 Urine Blood Negative (NEGATIVE) 06/21/18 08:20 Urine Nitrite Negative (NEGATIVE) 06/21/18 08:20 Urine Bilirubin Negative (<2.0 mg/dL) 06/21/18 08:20 Urine Urobilinogen 4.0 e.u/dl mg/dL (0.2-1.0) 06/21/18 08:20 Ur Leukocyte Esterase Trace (NEGATIVE) 06/21/18 08:20 Urine WBC (Auto) 7 /hpf (3-5) 06/21/18 08:20 Urine RBC (Auto) 1 /hpf (0-3) 06/21/18 08:20 Ur Epithelial Cells Rare /HPF (FEW) 06/21/18 08:20 Urine Bacteria Moderate /hpf (NONE SEEN) 06/21/18 08:20 Urine Mucus Many 06/21/18 08:20 RPR Titer Nonreactive (NONREACTIVE) 06/21/18 08:00 lab noted repeat ua Assessment: 06/22/18 13:13 withdrawal sx 06/22/18 13:14 uti Plan: continue detox repeat ua bactrim ds bid
[2018-06-22] MEDS: SULFAMETHOXAZOLE/TRIMETHOPRIM 800MG/160MG D.S. TABLET PO SCH ×2 (14:25→22:10)
[2018-06-22] MEDS: THIAMINE HCL 100 MG TABLET (FP) PO SCH (22:10)
[2018-06-22] MEDS: QUEtiapine FUMARATE 50 MG TABLET PO SCH (22:11)
[2018-06-22] MEDS: chlordiazePOXIDE 5 MG CAPSULE PO SCH (22:11)
[2018-06-23] MEDS: chlordiazePOXIDE 5 MG CAPSULE PO SCH ×3 (05:50→17:58)
[2018-06-23] MEDS: SULFAMETHOXAZOLE/TRIMETHOPRIM 800MG/160MG D.S. TABLET PO SCH ×2 (10:50→22:06)
[2018-06-23] MEDS: PRENATAL VITAMINS W/ FOLIC ACID TABLET (FP) PO SCH (10:50)
--- NOTE | 2018-06-23 11:10 | EKG ---
Test Reason : Blood Pressure : / mmHG Vent. Rate : 066 BPM Atrial Rate : 066 BPM P-R Int : 132 ms QRS Dur : 104 ms QT Int : 416 ms P-R-T Axes : 072 070 068 degrees QTc Int : 436 ms NORMAL SINUS RHYTHM NORMAL ECG WHEN COMPARED WITH ECG OF 01-MAY-2018 00:10, NO SIGNIFICANT CHANGE WAS FOUND Confirmed by AVA VELASQUEZ MD ([id number]) on 06/23/2018 11:09:49 AM Referred By: Confirmed By:AVA VELASQUEZ MD
[2018-06-23] MEDS: NICOTINE 14 MG/24 HOURS TOPICAL PATCH TD SCH (12:16)
--- NOTE | 2018-06-23 12:41 | PN ---
S Progress Note (SOAP) Subjective: alert,irritable,interrupted sleep Objective: 06/23/18 12:40 Vital Signs Temperature 97.2 F L 06/23/18 09:00 Pulse Rate 74 06/23/18 09:00 Respiratory Rate 18 06/23/18 09:00 Blood Pressure 137/94 06/23/18 09:00 O2 Sat by Pulse Oximetry (%) Assessment: 06/23/18 12:40 withdrawal symptom Plan: continue detox,positive ppd,chest xray ordered,discharge in am
[2018-06-23] MEDS: QUEtiapine FUMARATE 50 MG TABLET PO SCH (22:06)
[2018-06-23] MEDS: chlordiazePOXIDE HCL 10 MG CAPSULE PO SCH (22:06)
[2018-06-23] MEDS: THIAMINE HCL 100 MG TABLET (FP) PO SCH (22:06)
[2018-06-24] MEDS: chlordiazePOXIDE HCL 10 MG CAPSULE PO SCH ×2 (05:51→10:38)
[2018-06-24 09:47] VITALS: BP 123/68; PULSE 83; TEMP 97.2
--- NOTE | 2018-06-24 10:04 | PN ---
S Progress Note (SOAP) Subjective: alert,no complaint Objective: 06/24/18 10:02 Vital Signs Temperature 97.2 F L 06/24/18 09:47 Pulse Rate 83 06/24/18 09:47 Respiratory Rate 18 06/24/18 09:47 Blood Pressure 123/68 06/24/18 09:47 O2 Sat by Pulse Oximetry (%) Assessment: 06/24/18 10:03 detox completed,no withdrawal symptom Plan: discharge today,follow up [facility]
--- NOTE | 2018-06-24 10:05 | DS ---
[facility] Detox Discharge Summary Admission Date: 06/20/18 Discharge Date: 06/24/18 - History Present History: Alcohol Dependence, Cocaine Dependence Additional Comments: follow up with [facility] as arrangement Pertinent Past History: withdrawal signs and symptom Vital Signs Temperature 97.2 F L 06/24/18 09:47 Pulse Rate 83 06/24/18 09:47 Respiratory Rate 18 06/24/18 09:47 Blood Pressure 123/68 06/24/18 09:47 O2 Sat by Pulse Oximetry (%) Laboratory Last Values WBC 5.1 K/mm3 (4.0-10.0) 06/21/18 08:00 RBC 4.52 M/mm3 (4.00-5.60) 06/21/18 08:00 Hgb 14.1 GM/dL (11.7-16.9) 06/21/18 08:00 Hct 41.6 % (35.4-49) 06/21/18 08:00 MCV 92.0 fl (80-96) 06/21/18 08:00 MCH 31.2 pg (25.7-33.7) 06/21/18 08:00 MCHC 33.9 g/dl (32.0-35.9) 06/21/18 08:00 RDW 13.3 % (11.9-15.9) D 06/21/18 08:00 Plt Count 159 K/MM3 (134-434) D 06/21/18 08:00 MPV 9.3 fl (7.5-11.1) 06/21/18 08:00 Sodium 141 mmol/L (136-145) 06/21/18 08:00 Potassium 3.8 mmol/L (3.5-5.1) 06/21/18 08:00 Chloride 105 mmol/L (98-107) 06/21/18 08:00 Carbon Dioxide 30 mmol/L (21-32) 06/21/18 08:00 Anion Gap 6 (8-16) L 06/21/18 08:00 BUN 12 mg/dL (7-18) 06/21/18 08:00 Creatinine 0.9 mg/dL (0.7-1.3) 06/21/18 08:00 Creat Clearance w eGFR > 60 (>60) 06/21/18 08:00 Random Glucose 78 mg/dL (74-106) 06/21/18 08:00 Calcium 8.9 mg/dL (8.5-10.1) 06/21/18 08:00 Total Bilirubin 0.5 mg/dL (0.2-1.0) 06/21/18 08:00 AST 24 U/L (15-37) 06/21/18 08:00 ALT 37 U/L (12-78) D 06/21/18 08:00 Alkaline Phosphatase 72 U/L (45-117) 06/21/18 08:00 Total Protein 6.4 g/dl (6.4-8.2) 06/21/18 08:00 Albumin 3.3 g/dl (3.4-5.0) L 06/21/18 08:00 Urine Color Yellow 06/21/18 08:20 Urine Appearance Turbid 06/21/18 08:20 Urine pH 5.0 (5.0-8.0) 06/21/18 08:20 Ur Specific [place] 1.024 (1.001-1.035) 06/21/18 08:20 Urine Protein Negative (NEGATIVE) 06/21/18 08:20 Urine Glucose (UA) Negative (NEGATIVE) 06/21/18 08:20 Urine Ketones Negative (NEGATIVE) 06/21/18 08:20 Urine Blood Negative (NEGATIVE) 06/21/18 08:20 Urine Nitrite Negative (NEGATIVE) 06/21/18 08:20 Urine Bilirubin Negative (<2.0 mg/dL) 06/21/18 08:20 Urine Urobilinogen 4.0 e.u/dl mg/dL (0.2-1.0) 06/21/18 08:20 Ur Leukocyte Esterase Trace (NEGATIVE) 06/21/18 08:20 Urine WBC (Auto) 7 /hpf (3-5) 06/21/18 08:20 Urine RBC (Auto) 1 /hpf (0-3) 06/21/18 08:20 Ur Epithelial Cells Rare /HPF (FEW) 06/21/18 08:20 Urine Bacteria Moderate /hpf (NONE SEEN) 06/21/18 08:20 Urine Mucus Many 06/21/18 08:20 RPR Titer Nonreactive (NONREACTIVE) 06/21/18 08:00 - Physical Exam Results Vital Signs: Vital Signs Temperature 97.2 F L 06/24/18 09:47 Pulse Rate 83 06/24/18 09:47 Respiratory Rate 18 06/24/18 09:47 Blood Pressure 123/68 06/24/18 09:47 O2 Sat by Pulse Oximetry (%) Pertinent Admission Physical Exam Findings: withdrawal signs and symptom - Treatment Hospital Course: Detox Protocol Followed, Detoxed Safely, Responded well, Discharged Condition Good, Rehab Referral Accepted Patient has Accepted a Rehab Referral to: [facility] - Medication Discharge Medications: Ambulatory Orders Quetiapine Fumarate [Seroquel -] 50 mg PO HS #30 tablet 05/01/18 - Diagnosis (1) Alcohol dependence with uncomplicated withdrawal Current Visit: Yes Status: Acute (2) Positive PPD Current Visit: Yes Status: Acute (3) Cocaine dependence Current Visit: Yes Status: Acute Qualifiers: Substance use status: uncomplicated Qualified Code(s): F14.20 - Cocaine dependence, uncomplicated (4) Nicotine dependence Current Visit: Yes Status: Acute Qualifiers: Nicotine product type: cigarettes Substance use status: uncomplicated Qualified Code(s): F17.210 - Nicotine dependence, cigarettes, uncomplicated - AMA Did Patient Leave Against Medical Advice: No
--- NOTE | 2018-06-24 10:26 | PN ---
S Progress Note Note: patient did not want to go to [facility] ,wanted to go to [facility]
[2018-06-24] MEDS: NICOTINE 14 MG/24 HOURS TOPICAL PATCH TD SCH (10:33)
[2018-06-24] MEDS: SULFAMETHOXAZOLE/TRIMETHOPRIM 800MG/160MG D.S. TABLET PO SCH (10:33)
[2018-06-24] MEDS: PRENATAL VITAMINS W/ FOLIC ACID TABLET (FP) PO SCH (10:33)
== END 2018-06-24 10:59 | disposition home or self-care (01) | DRG 774 ==
LOC: YASAS 15:02 → Y3N 17:37 → Y6N 06-21 16:36
PROVIDERS: ADMIT Surgery; ATTEND Surgery
PROC: HZ2ZZZZ Detoxification Services for Substance Abuse Treatment (ICD-10-PCS; principal; 2018-06-20)
DX: F10.230 Alcohol dependence with withdrawal, uncomplicated (principal); F14.20 Cocaine dependence, uncomplicated; F17.210 Nicotine dependence, cigarettes, uncomplicated; F32.9 Major depressive disorder, single episode, unspecified; G47.00 Insomnia, unspecified; R76.11 Nonspecific reaction to tuberculin skin test without active tuberculosis
CPT/HCPCS: 36415; 71046-TC-FY; 80053; 81003; 81015; 85027; 86593; 93005; 93010

== ENCOUNTER 2018-08-05 10:10 | Inpatient (IN) | payer OTHER ==
[2018-08-05 10:54] VITALS: BMI 25.4
--- NOTE | 2018-08-05 18:57 | HP ---
CIWA Score - CIWA Score Nausea/Vomitin-No Nausea/No Vomiting Muscle Tremors: 2 Anxiety: 4-Mod. Anxious/Guarded Agitation: 2 Paroxysmal Sweats: 3 Orientation: 1-Uncertain about Date (no distress) Tacttile Disturbances: 0-None Auditory Disturbances: 0-None Visual Disturbances: 0-None Headache: 0-None Present CIWA-Ar Total Score: 12 Admission ROS BHS - HPI Chief Complaint: alcohol withdrawal symptoms Allergies/Adverse Reactions: Allergies Allergy/AdvReac Type Severity Reaction Status Date / Time No Known Allergies Allergy Verified 08/05/18 12:14 History of Present Illness: 57 yo male with hx of cocaine, nicotine and alcohol dependence is here seeking detox. Reports used "pills" to calm down on 08/01/18. Last detox [facility] 06/20/18 - . Reports was seen at the emergency department about a month ago for SOB, unable to name the facility. Reports hx of depression. Denies hx of seizures or blackouts. Denies suicidal / homicidal ideation or suicide attempt. Exam Limitations: No Limitations - Ebola screening Have you traveled outside of the country in the last 21 days: No Have you had contact with anyone from an Ebola affected area: No Have you been sick,other than usual withdrawal symptoms: No Do you have a fever: No - Review of Systems Constitutional: Diaphoresis, Loss of Appetite, Changes in sleep EENT: reports: No Symptoms Reported Respiratory: reports: No Symptoms reported Cardiac: reports: No Symptoms Reported GI: reports: Poor Appetite, Poor Fluid Intake, Indigestion : reports: No Symptoms Reported Musculoskeletal: reports: Back Pain Neuro: reports: No Symptoms reported Endocrine: reports: Increased Thirst Hematology: reports: No Symptoms Reported Psychiatric: reports: Orientated x3, Anxious Other Systems: Reviewed and Negative Patient History - Patient Medical History Hx Anemia: No Hx Asthma: No Hx Chronic Obstructive Pulmonary Disease (COPD): No Hx Cancer: No Hx Cardiac Disorders: No Hx Congestive Heart Failure: No Hx Hypertension: No Hx Hypercholesterolemia: No Hx Pacemaker: No HX Cerebrovascular Accident: No Hx Seizures: No Hx Dementia: No Hx Diabetes: No Hx Gastrointestinal Disorders: No Hx Liver Disease: No Hx Genitourinary Disorders: No Hx Sexually Transmitted Disorders: No Hx Renal Disease (ESRD): No Hx Thyroid Disease: No Hx Human Immunodeficiency Virus (HIV): No (last tested 4 months, declines testing ) Hx Hepatitis C: No Hx Depression: Yes Hx Suicide Attempt: No Hx Schizophrenia: No - Patient Surgical History Past Surgical History: No Hx Neurologic Surgery: No Hx Cataract Extraction: No Hx Cardiac Surgery: No Hx Lung Surgery: No Hx Breast Surgery: No Hx Breast Biopsy: No Hx Abdominal Surgery: No Hx Appendectomy: No Hx Cholecystectomy: No Hx Genitourinary Surgery: No Hx Section: No Hx Orthopedic Surgery: No Other Surgical History: fx, left mandible in 2011 Anesthesia Reaction: No - PPD History Previous Implant?: Yes Documented Results: Positive w/proof Implanted On Prior [facility] Admission?: No - Smoking Cessation Smoking history: Current every day smoker Have you smoked in the past 12 months: Yes Aproximately how many cigarettes per day: 10 Cigars Per Day: 0 Hx Chewing Tobacco Use: No Initiated information on smoking cessation: Yes 'Breaking Loose' booklet given: 08/05/18 - Substance & Tx. History Hx Alcohol Use: Yes Hx Substance Use: Yes Substance Use Type: Alcohol, Cocaine Hx Substance Use Treatment: Yes ( Last detox [facility] 06/20/18 - 06/24/18) - Substances Abused Alcohol Route: Oral Frequency: Daily Amount used: 3 pints liquor/ 8 beers Age of first use: 28 Date of Last Use: 08/05/18 Cocaine Route: Inhalation Frequency: Daily Amount used: $200 and up Age of first use: 28 Date of Last Use: 08/04/18 Family Disease History - Family Disease History Family Disease History: Other: Father (, cancer ), Mother (, homicide ) Admission Physical Exam S - Vital Signs Vital Signs: Vital Signs - 24 hr 08/05/18 10:51 Temperature 97.9 F Pulse Rate 89 Respiratory 19 Rate Blood Pressure 140/93 - Physical General Appearance: Yes: Appropriately Dressed, Mild Distress, Sweating, Anxious HEENTM: Yes: EOMI, Hearing grossly Normal, Normal ENT Inspection, Normocephalic , Normal Voice, MELINDA, Pharynx Normal, Tm's normal, Other (poor dentition) Neck: Yes: Within Normal Limits Breast: Yes: Breast Exam Deferred Cardiology: Yes: Regular Rhythm, Regular Rate Abdominal: Yes: Normal Bowel Sounds, Non Tender, Flat, Soft Genitourinary: Yes: Within Normal Limits Back: Yes: Normal Inspection Musculoskeletal: Yes: full range of Motion, Gait Steady, Pelvis Stable, Back pain Extremities: Yes: Normal Capillary Refill, Normal Inspection, Normal Range of Motion, Non-Tender Neurological: Yes: talent associate II-XII NML intact, Fully Oriented, Alert, Motor Strength 5/5, Depressed Affect Integumentary: Yes: Normal Color, Warm, Diaphoresis Lymphatic: Yes: Within Normal Limits - Diagnostic (1) Alcohol dependence with uncomplicated withdrawal Current Visit: Yes Status: Acute (2) Cocaine dependence Current Visit: Yes Status: Acute Qualifiers: Substance use status: uncomplicated Qualified Code(s): F14.20 - Cocaine dependence, uncomplicated (3) Nicotine dependence Current Visit: Yes Status: Acute Qualifiers: Nicotine product type: cigarettes Substance use status: uncomplicated Qualified Code(s): F17.210 - Nicotine dependence, cigarettes, uncomplicated Cleared for Admission S - Detox or Rehab [facility] Level of Care: Medically Managed Detox Regimen/Protocol: Librium S Breath Alcohol Content Breath Alcohol Content: 0 Urine Drug Screen - Results Drug Screen Negative: No Urine Drug Screen Results: FREDDY-Cocaine, BZO-Benzodiazepines
[2018-08-05] MEDS ORDERED: hydrOXYzine PAMOATE 50 MG CAPSULE (FP) PO PRN (19:05)
[2018-08-05] MEDS ORDERED: chlordiazePOXIDE HCL 25 MG CAPSULE PO ONE (19:05)
[2018-08-05] MEDS ORDERED: LOPERAMIDE HCL 2 MG CAPSULE PO PRN (19:05)
[2018-08-05] MEDS ORDERED: MENTHOL/PHENOL 1 EACH UD MM PRN (19:05)
[2018-08-05] MEDS ORDERED: MAGNESIUM CITRATE 300 ML BOTTLE PO PRN (19:05)
[2018-08-05] MEDS ORDERED: chlordiazePOXIDE HCL 25 MG CAPSULE PO PRN (19:05)
[2018-08-05] MEDS ORDERED: MAG HYDROX/AL HYDROX/SIMETH 30 ML UNIT-DOSE CUP PO PRN (19:05)
[2018-08-05] MEDS ORDERED: guaiFENesin/D-METHORPHAN HB 10 ML UNIT-DOSE CUPS PO PRN (19:05)
[2018-08-05] MEDS ORDERED: P-EPHED 60MG/TRIPROLIDI 2.5MG TABLET PO PRN (19:05)
[2018-08-05] MEDS ORDERED: ACETAMINOPHEN 325 MG TABLET (FP) PO PRN (19:05)
[2018-08-05] MEDS ORDERED: MAGNESIUM HYDROX 2400MG/30ML ORAL SUSPENSION 30 ML CUP PO PRN (19:05)
[2018-08-05] MEDS ORDERED: MELATONIN 5 MG TABLETS PO PRN (22:00)
[2018-08-05] MEDS: THIAMINE HCL 100 MG TABLET (FP) PO SCH (22:25)
[2018-08-05] MEDS: chlordiazePOXIDE HCL 25 MG CAPSULE PO SCH (22:25)
[2018-08-05] MEDS: IBUPROFEN 400 MG TABLET (FP) PO PRN (22:26)
[2018-08-06 00:57] LABS: URINE APPEARANCE CLEAR; URINE BILIRUBIN NEGATIVE (<2.0 mg/dL); URINE COLOR YELLOW; URINE GLUCOSE (UA) NEGATIVE (NEGATIVE); URINE KETONE TRACE (NEGATIVE); URINE LEUK ESTERASE NEGATIVE (NEGATIVE); URINE NITRITE NEGATIVE (NEGATIVE); URINE PROTEIN NEGATIVE (NEGATIVE)
[2018-08-06] MEDS: IBUPROFEN 400 MG TABLET (FP) PO PRN (06:03)
[2018-08-06] MEDS: chlordiazePOXIDE HCL 25 MG CAPSULE PO SCH ×4 (06:03→22:12)
[2018-08-06 10:01] LABS: HEMATOCRIT 43.1 % (35.4-49); HEMOGLOBIN 14.2 GM/dL (11.7-16.9); MCH 29.5 pg (25.7-33.7); MEAN CELL VOLUME 89.2 fl (80-96); MEAN PLT VOLUME 9.2 fl (7.5-11.1); PLATELET COUNT 170 K/MM3 (134-434); RBC 4.83 M/mm3 (4.00-5.60); RDW 13.7 % (11.9-15.9); WHITE BLOOD COUNT 5.8 K/mm3 (4.0-10.0)
[2018-08-06 10:14] LABS: CHLORIDE 104 mmol/L (98-107); POTASSIUM 3.7 mmol/L (3.5-5.1); SODIUM 140 mmol/L (136-145)
[2018-08-06 10:24] LABS: ALBUMIN 3.8 g/dl (3.4-5.0); ALK PHOS 77 U/L (45-117); ANION GAP 10 MMOL/L (8-16); BILIRUBIN,TOTAL 0.5 mg/dL (0.2-1.0); BLOOD UREA NITROGEN 20 mg/dL (7-18); CALCIUM 8.9 mg/dL (8.5-10.1); CO2 26 mmol/L (21-32); GLUCOSE,RANDOM 65 mg/dL (74-106); SGOT/AST 33 U/L (15-37); SGPT/ALT 49 U/L (12-78); TOT PROT 7.3 g/dl (6.4-8.2)
[2018-08-06] MEDS: PRENATAL VITAMINS W/ FOLIC ACID TABLET (FP) PO SCH (10:40)
--- NOTE | 2018-08-06 11:44 | EKG ---
Test Reason : Blood Pressure : / mmHG Vent. Rate : 078 BPM Atrial Rate : 078 BPM P-R Int : 138 ms QRS Dur : 084 ms QT Int : 382 ms P-R-T Axes : 073 072 067 degrees QTc Int : 435 ms NORMAL SINUS RHYTHM NORMAL ECG WHEN COMPARED WITH ECG OF 20-JUN-2018 18:22, NO SIGNIFICANT CHANGE WAS FOUND Confirmed by PHYLLIS LIMA MD ([id number]) on 08/06/2018 11:44:38 AM Referred By: Confirmed By:PHYLLIS LIMA MD
--- NOTE | 2018-08-06 14:54 | PN ---
S CIWA - CIWA Score Nausea/Vomitin-No Nausea/No Vomiting Muscle Tremors: 3 Anxiety: 4-Mod. Anxious/Guarded Agitation: 3 Paroxysmal Sweats: No Perspiration Orientation: 0-Oriented Tacttile Disturbances: 0-None Auditory Disturbances: 0-None Visual Disturbances: 0-None Headache: 0-None Present CIWA-Ar Total Score: 10 BHS Progress Note (SOAP) Subjective: ANXIETY,IRRITABILITY. C/O CRACKED RIGHT LOWER PREMOLAR AND ORAL PAIN. Objective: 08/06/18 14:53 Vital Signs 08/06/18 10:52 Temperature 97.6 F Pulse Rate 68 Respiratory 20 Rate Blood Pressure 102/64 Laboratory Tests 08/05/18 08/06/18 08/06/18 23:22 07:00 07:00 WBC 5.8 RBC 4.83 Hgb 14.2 Hct 43.1 MCV 89.2 MCH 29.5 MCHC 33.0 RDW 13.7 Plt Count 170 MPV 9.2 Sodium 140 Potassium 3.7 Chloride 104 Carbon Dioxide 26 Anion Gap 10 BUN 20 H Creatinine 1.0 Creat Clearance w eGFR > 60 Random Glucose 65 L Calcium 8.9 Total Bilirubin 0.5 AST 33 D ALT 49 D Alkaline Phosphatase 77 Total Protein 7.3 Albumin 3.8 Urine Color Yellow Urine Appearance Clear Urine pH 6.0 Ur Specific [place] 1.018 Urine Protein Negative Urine Glucose (UA) Negative Urine Ketones Trace H Urine Blood Negative Urine Nitrite Negative Urine Bilirubin Negative Urine Urobilinogen 2.0 Ur Leukocyte Esterase Negative RPR Titer 08/06/18 07:00 WBC RBC Hgb Hct MCV MCH MCHC RDW Plt Count MPV Sodium Potassium Chloride Carbon Dioxide Anion Gap BUN Creatinine Creat Clearance w eGFR Random Glucose Calcium Total Bilirubin AST ALT Alkaline Phosphatase Total Protein Albumin Urine Color Urine Appearance Urine pH Ur Specific [place] Urine Protein Urine Glucose (UA) Urine Ketones Urine Blood Urine Nitrite Urine Bilirubin Urine Urobilinogen Ur Leukocyte Esterase RPR Titer Nonreactive Assessment: 08/06/18 14:53 WITHDRAWAL SX Plan: CONTINUE DETOX VISCOUS LIDOCAINE 5% 5 ML TO SWISH AND SPIT Q4H
--- NOTE | 2018-08-06 15:27 | CONSULT ---
[facility] Psychiatric Consult - Data Date of interview: 08/06/18 Admission source: [facility] Identifying data: Another admission to [facility] for this 57 y/o AA male self- referred for detoxification treatment (alcohol and cocaine dependence).Admitted to [address] [place] [address].Patient is single without dependents,homeless,unemployed and deprived of income. Substance Abuse History: Confirmed by patient in this interview.Details in current [facility] report : Smoking history: Current every day smoker. Have you smoked in the past 12 months: Yes. Aproximately how many cigarettes per day: 10. Cigars Per Day: 0. Hx Chewing Tobacco Use: No. Initiated information on smoking cessation: Yes. 'Breaking Loose' booklet given: 08/05/18. - Substance & Tx. History. Hx Alcohol Use: Yes. Hx Substance Use: Yes. Substance Use Type : Alcohol, Cocaine. Hx Substance Use Treatment: Yes ( Last detox [facility] 06/20/18 - 06/24/18). - Substances Abused. Alcohol. Route: Oral. Frequency: Daily. Amount used: 3 pints liquor/ 8 beers. Age of first use: 28. Date of Last Use : 08/05/18. Cocaine. Route: Inhalation. Frequency: Daily. Amount used: $ 200 and up. Age of first use: 28. Date of Last Use: 08/04/18 Medical History: History of fracture of mandible (2011).Patient, otherwise, endorses good general health. Psychiatric History: No history of psychiatric hospitalizations or suicide attempts.Received a brief trial of seroquel (insomnia) during incarceration.Mr Vu denies history of psychiatric [employer]PD care. Physical/Sexual Abuse/Trauma History: Heavy history of incarceration (23 years in longterm for attempted murder). Additional Comment: Urine Drug Screen Results: FREDDY-Cocaine, BZO- Benzodiazepines.Noted. Mental Status Exam - Mental Status Exam Alert and Oriented to: Time, Place, Person Cognitive Function: Good Patient Appearance: Well Groomed (poor oral hygiene) Mood: Hopeful, Euthymic Affect: Appropriate, Normal Range Patient Behavior: Appropriate, Cooperative Speech Pattern: Clear, Appropriate Voice Loudness: Normal Thought Process: Intact, Goal Oriented Thought Disorder: Not Present Hallucinations: Denies Suicidal Ideation: Denies Homicidal Ideation: Denies Insight/Judgement: Poor Sleep: Poorly, Difficulty falling asleep Appetite: Good Muscle strength/Tone: Normal Gait/Station: Normal Psychiatric Findings - Problem List ([place] 1, 2,3) (1) Alcohol dependence with uncomplicated withdrawal Current Visit: Yes Status: Acute (2) Cocaine dependence Current Visit: Yes Status: Acute Qualifiers: Substance use status: uncomplicated Qualified Code(s): F14.20 - Cocaine dependence, uncomplicated (3) Nicotine dependence Current Visit: Yes Status: Acute Qualifiers: Nicotine product type: cigarettes Substance use status: in withdrawal Qualified Code(s): F17.213 - Nicotine dependence, cigarettes, with withdrawal (4) Insomnia Current Visit: Yes Status: Acute - Initial Treatment Plan Initial Treatment Plan: Psychoeducation.Sleep hygiene.Detoxification in progress.Seroquel 100 mg po hs to address insomnia.Ordered at the patient's request.Side effects/benefits discussed with the patient.Consented to careplan ( verbally).Observation.
[2018-08-06] MEDS: LIDOCAINE VISCOUS 2% ORAL/TOP 20 ML UNIT-DOSE CUP MM SCH ×3 (15:42→23:58)
[2018-08-06] MEDS: QUEtiapine FUMARATE 100 MG TABLET (FP) PO SCH (22:12)
[2018-08-06] MEDS: THIAMINE HCL 100 MG TABLET (FP) PO SCH (22:12)
[2018-08-07] MEDS: chlordiazePOXIDE HCL 25 MG CAPSULE PO SCH ×3 (06:06→17:24)
[2018-08-07] MEDS: IBUPROFEN 400 MG TABLET (FP) PO PRN (06:07)
[2018-08-07] MEDS: LIDOCAINE VISCOUS 2% ORAL/TOP 20 ML UNIT-DOSE CUP MM SCH ×2 (08:00→08:01)
[2018-08-07] MEDS ORDERED: LIDOCAINE VISCOUS 2% ORAL/TOP 20 ML UNIT-DOSE CUP MM PRN (09:07)
[2018-08-07] MEDS: PRENATAL VITAMINS W/ FOLIC ACID TABLET (FP) PO SCH (10:38)
--- NOTE | 2018-08-07 14:29 | PN ---
S CIWA - CIWA Score Nausea/Vomitin-Mild Nausea/No Vomiting Muscle Tremors: None Anxiety: 1-Mildly Anxious Agitation: 0-Normal Activity Paroxysmal Sweats: No Perspiration Orientation: 0-Oriented Tacttile Disturbances: 0-None Auditory Disturbances: 0-None Visual Disturbances: 0-None Headache: 0-None Present CIWA-Ar Total Score: 2 BHS Progress Note (SOAP) Subjective: PATIENT PRESENTS WITH MILD ANXIETY AND NAUSEA. Objective: 08/07/18 14:28 Vital Signs Temperature 98.4 F 08/07/18 13:39 Pulse Rate 80 08/07/18 13:39 Respiratory Rate 20 08/07/18 13:39 Blood Pressure 118/96 08/07/18 13:39 O2 Sat by Pulse Oximetry (%) Laboratory Tests 08/05/18 08/06/18 08/06/18 23:22 07:00 07:00 WBC 5.8 RBC 4.83 Hgb 14.2 Hct 43.1 MCV 89.2 MCH 29.5 MCHC 33.0 RDW 13.7 Plt Count 170 MPV 9.2 Sodium 140 Potassium 3.7 Chloride 104 Carbon Dioxide 26 Anion Gap 10 BUN 20 H Creatinine 1.0 Creat Clearance w eGFR > 60 Random Glucose 65 L Calcium 8.9 Total Bilirubin 0.5 AST 33 D ALT 49 D Alkaline Phosphatase 77 Total Protein 7.3 Albumin 3.8 Urine Color Yellow Urine Appearance Clear Urine pH 6.0 Ur Specific [place] 1.018 Urine Protein Negative Urine Glucose (UA) Negative Urine Ketones Trace H Urine Blood Negative Urine Nitrite Negative Urine Bilirubin Negative Urine Urobilinogen 2.0 Ur Leukocyte Esterase Negative RPR Titer 08/06/18 07:00 WBC RBC Hgb Hct MCV MCH MCHC RDW Plt Count MPV Sodium Potassium Chloride Carbon Dioxide Anion Gap BUN Creatinine Creat Clearance w eGFR Random Glucose Calcium Total Bilirubin AST ALT Alkaline Phosphatase Total Protein Albumin Urine Color Urine Appearance Urine pH Ur Specific [place] Urine Protein Urine Glucose (UA) Urine Ketones Urine Blood Urine Nitrite Urine Bilirubin Urine Urobilinogen Ur Leukocyte Esterase RPR Titer Nonreactive Assessment: 08/07/18 14:29 WITHDRAWAL SYMPTOMS Plan: CONTINUE DETOX PER PROTOCOL
[2018-08-07] MEDS: QUEtiapine FUMARATE 100 MG TABLET (FP) PO SCH (22:09)
[2018-08-07] MEDS: THIAMINE HCL 100 MG TABLET (FP) PO SCH (22:09)
[2018-08-07] MEDS: chlordiazePOXIDE 5 MG CAPSULE PO SCH (22:09)
[2018-08-08 06:11] VITALS: BP 118/68; PULSE 61; TEMP 96.8
[2018-08-08] MEDS: chlordiazePOXIDE 5 MG CAPSULE PO SCH (06:45)
--- NOTE | 2018-08-08 07:40 | DS ---
[facility] Detox Discharge Summary Admission Date: 08/05/18 Discharge Date: 08/08/18 - History Present History: Alcohol Dependence, Cocaine Dependence Additional Comments: Patient medically stable. Patient to follow up with Primary care Provider in 1 - 2 weeks post discharge. Pertinent Past History: Vital Signs Temperature 96.8 F L 08/08/18 06:10 Pulse Rate 61 08/08/18 06:10 Respiratory Rate 18 08/08/18 06:30 Blood Pressure 118/68 08/08/18 06:10 O2 Sat by Pulse Oximetry (%) Laboratory Last Values WBC 5.8 K/mm3 (4.0-10.0) 08/06/18 07:00 RBC 4.83 M/mm3 (4.00-5.60) 08/06/18 07:00 Hgb 14.2 GM/dL (11.7-16.9) 08/06/18 07:00 Hct 43.1 % (35.4-49) 08/06/18 07:00 MCV 89.2 fl (80-96) 08/06/18 07:00 MCH 29.5 pg (25.7-33.7) 08/06/18 07:00 MCHC 33.0 g/dl (32.0-35.9) 08/06/18 07:00 RDW 13.7 % (11.9-15.9) 08/06/18 07:00 Plt Count 170 K/MM3 (134-434) 08/06/18 07:00 MPV 9.2 fl (7.5-11.1) 08/06/18 07:00 Sodium 140 mmol/L (136-145) 08/06/18 07:00 Potassium 3.7 mmol/L (3.5-5.1) 08/06/18 07:00 Chloride 104 mmol/L (98-107) 08/06/18 07:00 Carbon Dioxide 26 mmol/L (21-32) 08/06/18 07:00 Anion Gap 10 MMOL/L (8-16) 08/06/18 07:00 BUN 20 mg/dL (7-18) H 08/06/18 07:00 Creatinine 1.0 mg/dL (0.7-1.3) 08/06/18 07:00 Creat Clearance w eGFR > 60 (>60) 08/06/18 07:00 Random Glucose 65 mg/dL (74-106) L 08/06/18 07:00 Calcium 8.9 mg/dL (8.5-10.1) 08/06/18 07:00 Total Bilirubin 0.5 mg/dL (0.2-1.0) 08/06/18 07:00 AST 33 U/L (15-37) D 08/06/18 07:00 ALT 49 U/L (12-78) D 08/06/18 07:00 Alkaline Phosphatase 77 U/L (45-117) 08/06/18 07:00 Total Protein 7.3 g/dl (6.4-8.2) 08/06/18 07:00 Albumin 3.8 g/dl (3.4-5.0) 08/06/18 07:00 Urine Color Yellow 08/05/18 23:22 Urine Appearance Clear 08/05/18 23:22 Urine pH 6.0 (5.0-8.0) 08/05/18 23:22 Ur Specific [place] 1.018 (1.001-1.035) 08/05/18 23:22 Urine Protein Negative (NEGATIVE) 08/05/18 23:22 Urine Glucose (UA) Negative (NEGATIVE) 08/05/18 23:22 Urine Ketones Trace (NEGATIVE) H 08/05/18 23:22 Urine Blood Negative (NEGATIVE) 08/05/18 23:22 Urine Nitrite Negative (NEGATIVE) 08/05/18 23:22 Urine Bilirubin Negative (<2.0 mg/dL) 08/05/18 23:22 Urine Urobilinogen 2.0 mg/dL (0.2-1.0) 08/05/18 23:22 Ur Leukocyte Esterase Negative (NEGATIVE) 08/05/18 23:22 RPR Titer Nonreactive (NONREACTIVE) 08/06/18 07:00 - Physical Exam Results Vital Signs: Vital Signs Temperature 96.8 F L 08/08/18 06:10 Pulse Rate 61 08/08/18 06:10 Respiratory Rate 18 08/08/18 06:30 Blood Pressure 118/68 08/08/18 06:10 O2 Sat by Pulse Oximetry (%) - Treatment Hospital Course: Detox Protocol Followed, Detoxed Safely, Responded well, Discharged Condition Good Patient has Accepted a Rehab Referral to: Follow Up with out patient referrals - Medication Discharge Medications: Ambulatory Orders Quetiapine Fumarate [Seroquel -] 100 mg PO HS 08/05/18 - Diagnosis (1) Alcohol dependence with uncomplicated withdrawal Current Visit: Yes Status: Acute (2) Cocaine dependence Current Visit: Yes Status: Acute Qualifiers: Substance use status: uncomplicated Qualified Code(s): F14.20 - Cocaine dependence, uncomplicated (3) Nicotine dependence Current Visit: Yes Status: Acute Qualifiers: Nicotine product type: cigarettes Substance use status: in withdrawal Qualified Code(s): F17.213 - Nicotine dependence, cigarettes, with withdrawal - AMA Did Patient Leave Against Medical Advice: No
[2018-08-08] MEDS ORDERED: chlordiazePOXIDE HCL 10 MG CAPSULE PO SCH (23:00)
== END 2018-08-08 07:15 | disposition home or self-care (01) | DRG 774 ==
LOC: YASAS 10:10 → Y3N 19:00
PROC: HZ2ZZZZ Detoxification Services for Substance Abuse Treatment (ICD-10-PCS; principal; 2018-08-05)
DX: F10.230 Alcohol dependence with withdrawal, uncomplicated (principal); F14.20 Cocaine dependence, uncomplicated; F17.213 Nicotine dependence, cigarettes, with withdrawal; G47.00 Insomnia, unspecified; Z59.0 Homelessness
CPT/HCPCS: 36415; 80053; 81003; 85027; 86593; 93005; 93010

== ENCOUNTER 2018-09-14 11:22 | Inpatient (IN) | payer OTHER ==
[2018-09-14 12:12] VITALS: BMI 25.0
--- NOTE | 2018-09-14 14:59 | HP ---
CIWA Score - CIWA Score Nausea/Vomitin Muscle Tremors: 3 Anxiety: 3 Agitation: 3 Paroxysmal Sweats: 3 Orientation: 0-Oriented Tacttile Disturbances: 0-None Auditory Disturbances: 0-None Visual Disturbances: 0-None Headache: 0-None Present CIWA-Ar Total Score: 14 Admission ROS S - HPI Chief Complaint: "I cant control my alcohol drinking and I am trying to be clean and get my life back on track" Allergies/Adverse Reactions: Allergies Allergy/AdvReac Type Severity Reaction Status Date / Time No Known Allergies Allergy Verified 09/14/18 13:52 History of Present Illness: 57 y/o male with a long hx of alcohol and cocaine addiction presents here for detox. Pt was here in Jul, june and May. States he was mandated to come by his personnel training officer in May, june and July but that he is off [place] and is here on his own now. 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 Pt states he takes percocets , but UTOX negative for opiates Hx of Depression for which he takes Seroquel. Denies suicidal ideation in the past or now. Exam Limitations: No Limitations - Ebola screening Have you traveled outside of the country in the last 21 days: No Have you had contact with anyone from an Ebola affected area: No Have you been sick,other than usual withdrawal symptoms: No Do you have a fever: No - Review of Systems Constitutional: Loss of Appetite, Changes in sleep, Unintentional Wgt. Loss EENT: reports: No Symptoms Reported Respiratory: reports: No Symptoms reported Cardiac: reports: No Symptoms Reported GI: reports: Poor Appetite, Vomiting : reports: No Symptoms Reported Musculoskeletal: reports: No Symptoms Reported Integumentary: reports: No Symptoms Reported Neuro: reports: No Symptoms reported Endocrine: reports: No Symptoms Reported Hematology: reports: No Symptoms Reported Psychiatric: reports: Mood/Affect Appropiate, Orientated x3 Other Systems: Reviewed and Negative Patient History - Patient Medical History Hx Anemia: No Hx Asthma: No Hx Chronic Obstructive Pulmonary Disease (COPD): No Hx Cancer: No Hx Cardiac Disorders: No Hx Congestive Heart Failure: No Hx Hypertension: No Hx Hypercholesterolemia: No Hx Pacemaker: No HX Cerebrovascular Accident: No Hx Seizures: No Hx Dementia: No Hx Diabetes: No Hx Gastrointestinal Disorders: No Hx Liver Disease: No Hx Genitourinary Disorders: No Hx Sexually Transmitted Disorders: No Hx Renal Disease (ESRD): No Hx Thyroid Disease: No Hx Human Immunodeficiency Virus (HIV): No (last tested 4 months, declines testing ) Hx Hepatitis C: No Hx Depression: Yes (On seroquel) Hx Suicide Attempt: No Hx Bipolar Disorder: No Hx Schizophrenia: No - Patient Surgical History Past Surgical History: No Hx Neurologic Surgery: No Hx Cataract Extraction: No Hx Cardiac Surgery: No Hx Lung Surgery: No Hx Breast Surgery: No Hx Breast Biopsy: No Hx Abdominal Surgery: No Hx Appendectomy: No Hx Cholecystectomy: No Hx Genitourinary Surgery: No Hx Section: No Hx Orthopedic Surgery: No Other Surgical History: fx, left mandible in 2011 Anesthesia Reaction: No - PPD History Previous Implant?: No Documented Results: Positive w/o proof Implanted On Prior R Admission?: No - Reproductive History Patient is a Female of Child Bearing Age (11 -55 yrs old): No - Smoking Cessation Smoking history: Current every day smoker Have you smoked in the past 12 months: Yes Aproximately how many cigarettes per day: 10 Cigars Per Day: 0 Hx Chewing Tobacco Use: No Initiated information on smoking cessation: Yes 'Breaking Loose' booklet given: 09/14/18 - Substance & Tx. History Hx Alcohol Use: Yes Hx Substance Use: Yes Substance Use Type: Alcohol, Cocaine Hx Substance Use Treatment: Yes - Substances Abused Alcohol Route: Oral Frequency: Daily Amount used: 2 pints of [place] Age of first use: 30 Date of Last Use: 09/14/18 Cocaine Route: Inhalation Frequency: Daily Amount used: $300 Age of first use: 34 Date of Last Use: 09/14/18 percocet Route: Oral Frequency: 1-2 times per week Amount used: 2-3 tablets (unknown mg of tablets) Age of first use: 57 Date of Last Use: 09/12/18 Family Disease History - Family Disease History Family Disease History: Other: Father (, cancer ), Mother (, homicide ) Admission Physical Exam BHS - Vital Signs Vital Signs: Vital Signs - 24 hr 09/14/18 12:10 Temperature 98.5 F Pulse Rate 88 Respiratory 20 Rate Blood Pressure 128/72 - Physical General Appearance: Yes: Mild Distress HEENTM: Yes: Within Normal Limits Respiratory: Yes: Within Normal Limits Neck: Yes: Within Normal Limits, No masses,lesions,Nodules Breast: Yes: Breast Exam Deferred Cardiology: Yes: Regular Rate Abdominal: Yes: Normal Bowel Sounds, Non Tender Genitourinary: Yes: Within Normal Limits Back: Yes: Normal Inspection Musculoskeletal: Yes: Within Normal Limits, full range of Motion, Gait Steady Extremities: Yes: Within Normal Limits, Normal Capillary Refill, Normal Inspection Neurological: Yes: Fully Oriented, Alert, Motor Strength 5/5 Integumentary: Yes: Normal Color, Dry Lymphatic: Yes: Within Normal Limits - Diagnostic (1) Alcohol dependence with uncomplicated withdrawal Current Visit: Yes Status: Acute (2) Cocaine dependence, uncomplicated Current Visit: Yes Status: Acute (3) Depressed mood Current Visit: Yes Status: Chronic (4) Nicotine dependence Current Visit: Yes Status: Chronic Qualifiers: Nicotine product type: cigarettes Substance use status: in withdrawal Qualified Code(s): F17.213 - Nicotine dependence, cigarettes, with withdrawal (5) Substance induced mood disorder Current Visit: Yes Status: Chronic Cleared for Admission [facility] - Detox or Rehab [facility] Level of Care: Medically Managed Detox Regimen/Protocol: Librium [facility] Breath Alcohol Content Breath Alcohol Content: 0 Urine Drug Screen - Results Drug Screen Negative: No Urine Drug Screen Results: FREDDY-Cocaine, BZO-Benzodiazepines
[2018-09-14] MEDS ORDERED: MAGNESIUM HYDROX 2400MG/30ML ORAL SUSPENSION 30 ML CUP PO PRN (15:13)
[2018-09-14] MEDS ORDERED: chlordiazePOXIDE HCL 25 MG CAPSULE PO PRN (15:13)
[2018-09-14] MEDS ORDERED: MENTHOL/PHENOL 1 EACH UD MM PRN (15:13)
[2018-09-14] MEDS ORDERED: IBUPROFEN 400 MG TABLET (FP) PO PRN (15:13)
[2018-09-14] MEDS ORDERED: ACETAMINOPHEN 325 MG TABLET (FP) PO PRN (15:13)
[2018-09-14] MEDS ORDERED: NICOTINE POLACRILEX 2 MG GUM BC PRN (15:13)
[2018-09-14] MEDS ORDERED: guaiFENesin/D-METHORPHAN HB 10 ML UNIT-DOSE CUPS PO PRN (15:13)
[2018-09-14] MEDS ORDERED: LOPERAMIDE HCL 2 MG CAPSULE PO PRN (15:13)
[2018-09-14] MEDS ORDERED: P-EPHED 60MG/TRIPROLIDI 2.5MG TABLET PO PRN (15:13)
[2018-09-14] MEDS ORDERED: MAGNESIUM CITRATE 300 ML BOTTLE PO PRN (15:13)
[2018-09-14] MEDS ORDERED: MAG HYDROX/AL HYDROX/SIMETH 30 ML UNIT-DOSE CUP PO PRN (15:13)
[2018-09-14] MEDS: chlordiazePOXIDE HCL 25 MG CAPSULE PO SCH ×2 (16:35→22:17)
[2018-09-14 17:47] LABS: URINE APPEARANCE CLEAR; URINE BILIRUBIN NEGATIVE (<2.0 mg/dL); URINE COLOR YELLOW; URINE GLUCOSE (UA) NEGATIVE (NEGATIVE); URINE KETONE NEGATIVE (NEGATIVE); URINE LEUK ESTERASE NEGATIVE (NEGATIVE); URINE NITRITE NEGATIVE (NEGATIVE); URINE PROTEIN NEGATIVE (NEGATIVE); URINE UROBILINOGEN NEGATIVE mg/dL (0.2-1.0)
[2018-09-14] MEDS ORDERED: MELATONIN 5 MG TABLETS PO PRN (22:00)
[2018-09-14] MEDS: THIAMINE HCL 100 MG TABLET (FP) PO SCH (22:18)
[2018-09-15] MEDS: chlordiazePOXIDE HCL 25 MG CAPSULE PO SCH ×4 (06:04→22:10)
--- NOTE | 2018-09-15 09:03 | CONSULT ---
[facility] Psychiatric Consult - Data Date of interview: 09/15/18 Admission source: [facility] Identifying data: This is a 57 years old male, , father of one, living with roommate, with no financial support, with no psychiatric hospitalization history, with a long history of alcohol and cocaine addiction presents here for detox, reporting Alcohol [id number] symptoms. Substance Abuse History: Smoking history: Current every day smoker. Have you smoked in the past 12 months: Yes. Aproximately how many cigarettes per day: 10. Cigars Per Day: 0. Hx Chewing Tobacco Use: No. Initiated information on smoking cessation: Yes. 'Breaking Loose' booklet given: 09/14/18. - Substance & Tx. History. Hx Alcohol Use: Yes. Hx Substance Use: Yes. Substance Use Type : Alcohol, Cocaine. Hx Substance Use Treatment: Yes. - Substances Abused. Alcohol. Route: Oral. Frequency: Daily. Amount used: 2 pints of [place]. Age of first use: 30. Date of Last Use: 09/14/18. Cocaine. Route: Inhalation. Frequency: Daily. Amount used: $300. Age of first use: 34. Date of Last Use: 09/14/18. percocet. Route: Oral. Frequency: 1-2 times per week. Amount used: 2-3 tablets (unknown mg of tablets). Age of first use: 57. Date of Last Use: 09/12/18 Medical History: PPD+ history. Denies any significant medical iossues. Psychiatric History: Patient reports history of depression and anxiety, denies psychiatric hospitalization history, denies psychiatrioc medications usage, denies suicidal and homicidal history. Reports insomnioa, reports taking prior to admission: Seroquel 100mg po qhs Physical/Sexual Abuse/Trauma History: Denies Additional Comment: Seroquel 100mg po qhs Mental Status Exam - Mental Status Exam Alert and Oriented to: Person Cognitive Function: Fair Patient Appearance: Unkempt Mood: Sad Affect: Flat Patient Behavior: Sedated Speech Pattern: Delayed Voice Loudness: Mildly Soft/Quiet Thought Process: Circumstantial Thought Disorder: Being Controlled Hallucinations: Denies Suicidal Ideation: Denies Homicidal Ideation: Denies Insight/Judgement: Fair Sleep: Difficulty falling asleep Appetite: Weight loss Muscle strength/Tone: Mild Hypotonicity Gait/Station: Shuffling Additional Comments: Seroquel 100mg po qhs Psychiatric Findings - Problem List ([place] 1, 2,3) (1) Alcohol dependence with uncomplicated withdrawal Current Visit: Yes Status: Acute (2) Opioid use disorder Current Visit: Yes Status: Acute (3) Cocaine dependence, uncomplicated Current Visit: Yes Status: Chronic (4) Nicotine dependence Current Visit: Yes Status: Chronic Qualifiers: Nicotine product type: cigarettes Substance use status: in withdrawal Qualified Code(s): F17.213 - Nicotine dependence, cigarettes, with withdrawal (5) Positive PPD Current Visit: Yes Status: Chronic (6) Substance induced mood disorder Current Visit: Yes Status: Chronic (7) Alcohol dependence Current Visit: No Status: Acute Qualifiers: Complication of substance-induced condition: uncomplicated (8) Cocaine dependence Current Visit: No Status: Acute Qualifiers: Substance use status: uncomplicated Qualified Code(s): F14.20 - Cocaine dependence, uncomplicated (9) Major depressive disorder, single episode Current Visit: No Status: Acute - Initial Treatment Plan Initial Treatment Plan: Seroquel 100mg po qhs
[2018-09-15] MEDS: PRENATAL VITAMINS W/ FOLIC ACID TABLET (FP) PO SCH (10:10)
--- NOTE | 2018-09-15 10:52 | PN ---
S CIWA - CIWA Score Nausea/Vomitin Muscle Tremors: 4-Moderate,w/Arms Extend Anxiety: 3 Agitation: 3 Paroxysmal Sweats: 3 Orientation: 0-Oriented Tacttile Disturbances: 1-Very Mild Itch/Numbness Auditory Disturbances: 0-None Visual Disturbances: 0-None Headache: 0-None Present CIWA-Ar Total Score: 17 BHS Progress Note (SOAP) Subjective: Interrupted sleep, sweating Objective: 09/15/18 10:50 Last Vital Signs Temp Pulse Resp BP Pulse Ox 96.8 F L 67 18 115/74 09/15/18 09:02 09/15/18 09:02 09/15/18 09:02 09/15/18 09:02 Laboratory Tests 09/14/18 15:32 Urine Color Yellow Urine Appearance Clear Urine pH 5.0 Ur Specific [place] 1.016 Urine Protein Negative Urine Glucose (UA) Negative Urine Ketones Negative Urine Blood Negative Urine Nitrite Negative Urine Bilirubin Negative Urine Urobilinogen Negative Ur Leukocyte Esterase Negative UA result noted; RPR non reactive 07/2018 (no need for repeat), will reorder CBC , CMP in AM (was not done this morning) Assessment: 09/15/18 10:53 Withdrawal symptoms Plan: Continue detox Encouraged PO water hydration
--- NOTE | 2018-09-15 21:33 | EKG ---
Test Reason : Blood Pressure : / mmHG Vent. Rate : 075 BPM Atrial Rate : 075 BPM P-R Int : 144 ms QRS Dur : 090 ms QT Int : 380 ms P-R-T Axes : 067 061 056 degrees QTc Int : 424 ms NORMAL SINUS RHYTHM NORMAL ECG WHEN COMPARED WITH ECG OF 05-AUG-2018 19:58, NO SIGNIFICANT CHANGE WAS FOUND Confirmed by AVA VELASQUEZ MD ([id number]) on 09/15/2018 9:32:45 PM Referred By: Imelda Lawrence Confirmed By:AVA VELASQUEZ MD
[2018-09-15] MEDS: QUEtiapine FUMARATE 100 MG TABLET (FP) PO SCH (22:10)
[2018-09-15] MEDS: THIAMINE HCL 100 MG TABLET (FP) PO SCH (22:10)
[2018-09-16] MEDS: chlordiazePOXIDE HCL 25 MG CAPSULE PO SCH ×2 (06:50→10:16)
[2018-09-16] MEDS: PRENATAL VITAMINS W/ FOLIC ACID TABLET (FP) PO SCH (10:15)
[2018-09-16 10:23] LABS: HEMATOCRIT 38.4 % (35.4-49); HEMOGLOBIN 12.7 GM/dL (11.7-16.9); MCH 30.1 pg (25.7-33.7); MCHC 33.2 g/dl (32.0-35.9); MEAN CELL VOLUME 90.9 fl (80-96); PLATELET COUNT 211 K/MM3 (134-434); RBC 4.23 M/mm3 (4.00-5.60); RDW 15.2 % (11.9-15.9); WHITE BLOOD COUNT 4.9 K/mm3 (4.0-10.0)
[2018-09-16 11:20] LABS: ALBUMIN 3.2 g/dl (3.4-5.0); ALK PHOS 71 U/L (45-117); ANION GAP 6 MMOL/L (8-16); BILIRUBIN,TOTAL 0.3 mg/dL (0.2-1); BLOOD UREA NITROGEN 18 mg/dL (7-18); CALCIUM 8.6 mg/dL (8.5-10.1); CHLORIDE 111 mmol/L (98-107); CO2 27 mmol/L (21-32); GLUCOSE,RANDOM 82 mg/dL (74-106); POTASSIUM 4.5 mmol/L (3.5-5.1); SGOT/AST 23 U/L (15-37); SGPT/ALT 47 U/L (13-61); SODIUM 144 mmol/L (136-145); TOT PROT 6.4 g/dl (6.4-8.2)
--- NOTE | 2018-09-16 13:35 | PN ---
[facility] CIWA - CIWA Score Nausea/Vomitin-Mild Nausea/No Vomiting Muscle Tremors: 3 Anxiety: 3 Agitation: 3 Paroxysmal Sweats: 3 Orientation: 0-Oriented Tacttile Disturbances: 0-None Auditory Disturbances: 0-None Visual Disturbances: 0-None Headache: 1-Very Mild CIWA-Ar Total Score: 14 [facility] Progress Note (SOAP) Subjective: Sweating, chills, interrupted sleep Objective: 09/16/18 13:33 Last Vital Signs Temp Pulse Resp BP Pulse Ox 97.1 F L 76 18 112/66 09/16/18 13:16 09/16/18 13:16 09/16/18 13:16 09/16/18 13:16 Laboratory Tests 09/14/18 09/16/18 09/16/18 15:32 07:30 07:30 WBC 4.9 RBC 4.23 Hgb 12.7 Hct 38.4 MCV 90.9 MCH 30.1 MCHC 33.2 RDW 15.2 D Plt Count 211 D MPV 9.0 Sodium 144 Potassium 4.5 Chloride 111 H Carbon Dioxide 27 Anion Gap 6 L BUN 18 Creatinine 1.0 Creat Clearance w eGFR > 60 Random Glucose 82 Calcium 8.6 Total Bilirubin 0.3 AST 23 ALT 47 Alkaline Phosphatase 71 Total Protein 6.4 Albumin 3.2 L Urine Color Yellow Urine Appearance Clear Urine pH 5.0 Ur Specific [place] 1.016 Urine Protein Negative Urine Glucose (UA) Negative Urine Ketones Negative Urine Blood Negative Urine Nitrite Negative Urine Bilirubin Negative Urine Urobilinogen Negative Ur Leukocyte Esterase Negative RPR Titer 09/16/18 07:30 WBC RBC Hgb Hct MCV MCH MCHC RDW Plt Count MPV Sodium Potassium Chloride Carbon Dioxide Anion Gap BUN Creatinine Creat Clearance w eGFR Random Glucose Calcium Total Bilirubin AST ALT Alkaline Phosphatase Total Protein Albumin Urine Color Urine Appearance Urine pH Ur Specific [place] Urine Protein Urine Glucose (UA) Urine Ketones Urine Blood Urine Nitrite Urine Bilirubin Urine Urobilinogen Ur Leukocyte Esterase RPR Titer Nonreactive Labs reviewed Assessment: 09/16/18 13:34 Withdrawal symptoms Plan: Continue detox Encouraged PO water intake
[2018-09-16] MEDS: chlordiazePOXIDE 5 MG CAPSULE PO SCH ×2 (17:45→22:12)
[2018-09-16] MEDS: THIAMINE HCL 100 MG TABLET (FP) PO SCH (22:12)
[2018-09-16] MEDS: QUEtiapine FUMARATE 100 MG TABLET (FP) PO SCH (22:12)
[2018-09-17] MEDS: chlordiazePOXIDE 5 MG CAPSULE PO SCH ×2 (06:02→10:19)
[2018-09-17] MEDS: PRENATAL VITAMINS W/ FOLIC ACID TABLET (FP) PO SCH (10:19)
[2018-09-17 10:29] VITALS: BP 128/80; PULSE 77; TEMP 97.4
--- NOTE | 2018-09-17 11:20 | DS ---
[facility] Detox Discharge Summary Admission Date: 09/14/18 Discharge Date: 09/17/18 - History Present History: Alcohol Dependence, Cocaine Dependence, Opioid Dependence Additional Comments: Patient decided to leave AMA without any notice. Pollution Control Chemist saw patient this morning and encouraged him to get out of bed for his 10am medication. Patient was agitated and said that too much medications and why is he getting medications all the time. Pollution Control Chemist explained the detox protocol to patient and he told sql report writer that he will be getting up soon to get his medications. Patient later decided to leave AMA stating it doesn't serve any purpose for him to be here and wants to leave [facility]. Patient instructed to call 911 if experiencing any withdrawal symptoms and to follow up with his PCP within 3 days. Pertinent Past History: Opioid dependence Alcohol dependence Cocaine dependence Nicotine dependence PPD Positive - Physical Exam Results Vital Signs: Vital Signs Temperature 97.4 F L 09/17/18 10:00 Pulse Rate 77 09/17/18 10:00 Respiratory Rate 20 09/17/18 10:00 Blood Pressure 128/80 09/17/18 10:00 O2 Sat by Pulse Oximetry (%) Pertinent Admission Physical Exam Findings: Withdrawal symptoms Laboratory Tests 09/14/18 09/16/18 09/16/18 15:32 07:30 07:30 WBC 4.9 RBC 4.23 Hgb 12.7 Hct 38.4 MCV 90.9 MCH 30.1 MCHC 33.2 RDW 15.2 D Plt Count 211 D MPV 9.0 Sodium 144 Potassium 4.5 Chloride 111 H Carbon Dioxide 27 Anion Gap 6 L BUN 18 Creatinine 1.0 Creat Clearance w eGFR > 60 Random Glucose 82 Calcium 8.6 Total Bilirubin 0.3 AST 23 ALT 47 Alkaline Phosphatase 71 Total Protein 6.4 Albumin 3.2 L Urine Color Yellow Urine Appearance Clear Urine pH 5.0 Ur Specific [place] 1.016 Urine Protein Negative Urine Glucose (UA) Negative Urine Ketones Negative Urine Blood Negative Urine Nitrite Negative Urine Bilirubin Negative Urine Urobilinogen Negative Ur Leukocyte Esterase Negative RPR Titer 09/16/18 07:30 WBC RBC Hgb Hct MCV MCH MCHC RDW Plt Count MPV Sodium Potassium Chloride Carbon Dioxide Anion Gap BUN Creatinine Creat Clearance w eGFR Random Glucose Calcium Total Bilirubin AST ALT Alkaline Phosphatase Total Protein Albumin Urine Color Urine Appearance Urine pH Ur Specific [place] Urine Protein Urine Glucose (UA) Urine Ketones Urine Blood Urine Nitrite Urine Bilirubin Urine Urobilinogen Ur Leukocyte Esterase RPR Titer Nonreactive Labs reviewed - Medication Discharge Medications: Ambulatory Orders Quetiapine Fumarate [Seroquel -] 100 mg PO HS 08/05/18 Quetiapine Fumarate [Seroquel] 100 mg PO HS #30 tablet 09/15/18 - Diagnosis (1) Opioid use disorder Current Visit: Yes Status: Acute (2) Alcohol dependence with uncomplicated withdrawal Current Visit: Yes Status: Acute (3) Cocaine dependence, uncomplicated Current Visit: Yes Status: Chronic (4) Depressed mood Current Visit: Yes Status: Chronic (5) Nicotine dependence Current Visit: Yes Status: Chronic Qualifiers: Nicotine product type: cigarettes Substance use status: in withdrawal Qualified Code(s): F17.213 - Nicotine dependence, cigarettes, with withdrawal (6) Positive PPD Current Visit: Yes Status: Chronic - AMA Did Patient Leave Against Medical Advice: Yes (Patient instructed to call 911 if withdrawal symptoms or feeling sick)
[2018-09-17] MEDS ORDERED: chlordiazePOXIDE HCL 10 MG CAPSULE PO SCH (17:00)
== END 2018-09-17 11:31 | disposition left against medical advice (07) | DRG 770 ==
LOC: YASAS 11:22 → Y3N 15:11
PROC: HZ2ZZZZ Detoxification Services for Substance Abuse Treatment (ICD-10-PCS; principal; 2018-09-14)
DX: F10.230 Alcohol dependence with withdrawal, uncomplicated (principal); F14.20 Cocaine dependence, uncomplicated; F11.90 Opioid use, unspecified, uncomplicated; F17.213 Nicotine dependence, cigarettes, with withdrawal; F19.24 Other psychoactive substance dependence with psychoactive substance-induced mood disorder; F32.9 Major depressive disorder, single episode, unspecified; R76.11 Nonspecific reaction to tuberculin skin test without active tuberculosis; Z59.0 Homelessness
CPT/HCPCS: 36415; 80053; 81003; 85027; 86593; 93005; 93010

== ENCOUNTER 2018-10-22 16:51 | Inpatient (IN) | payer OTHER ==
[2018-10-22 18:33] VITALS: BMI 25.1
[2018-10-22] MEDS ORDERED: MELATONIN 5 MG TABLETS PO PRN (22:00)
--- NOTE | 2018-10-22 22:57 | HP ---
CIWA Score Nausea/Vomitin-Mild Nausea/No Vomiting Muscle Tremors: 4-Moderate,w/Arms Extend Anxiety: 2 Agitation: 4-Moderately Restless Paroxysmal Sweats: 2 Orientation: 1-Uncertain about Date Tacttile Disturbances: 0-None Auditory Disturbances: 0-None Visual Disturbances: 0-None Headache: 0-None Present CIWA-Ar Total Score: 14 - Admission Criteria OASAS Guidelines: Admission for Medically Managed Detox: Requires at least one of the followin. CIWA greater than 12 2. Seizures within the past 24 hours 3. Delirium tremens within the past 24 hours 4. Hallucinations within the past 24 hours 5. Acute intervention needed for co occurring medical disorder 6. Acute intervention needed for co occurring psychiatric disorder 7. Severe withdrawal that cannot be handled at a lower level of care (continued vomiting, continued diarrhea, abnormal vital signs) requiring intravenous medication and/or fluids 8. Patient presents the following: CIWA greater than 12 Admission Criteria Met: Admission criteria met Admission ROS [facility] - [facility] Chief Complaint: Here for alcohol withdrawal. Allergies/Adverse Reactions: Allergies Allergy/AdvReac Type Severity Reaction Status Date / Time No Known Allergies Allergy Verified 10/22/18 22:26 History of Present Illness: Here for alcohol detox. Alcohol use since age 28. Crack/cocaine use since age 32. Nicotine use since age 18. Has only been able to maintain sobriety for 2 weeks. Denies seizures, blackouts, overdose. Denies significant PMH/PSH Hx depression and insomnia - on Seroquel but has not seen a MH provider. Denies thoughts of harming self or others. PDMP - negative search results Exam Limitations: No Limitations - Ebola screening Have you traveled outside of the country in the last 21 days: No Have you had contact with anyone from an Ebola affected area: No Have you been sick,other than usual withdrawal symptoms: No Do you have a fever: No - Review of Systems Constitutional: Diaphoresis, Changes in sleep (Difficulty falling and staying asleep/) EENT: reports: No Symptoms Reported Respiratory: reports: No Symptoms reported Cardiac: reports: No Symptoms Reported GI: reports: Nausea : reports: No Symptoms Reported Musculoskeletal: reports: No Symptoms Reported Integumentary: reports: No Symptoms Reported Neuro: reports: Tremors Endocrine: reports: Increased Thirst Hematology: reports: No Symptoms Reported Psychiatric: reports: Judgement Intact, Agitated, Anxious, Disorientated ( unsure of day - knows month and year) Patient History - Patient Medical History Hx Anemia: No Hx Asthma: No Hx Chronic Obstructive Pulmonary Disease (COPD): No Hx Cancer: No Hx Cardiac Disorders: No Hx Congestive Heart Failure: No Hx Hypertension: No Hx Hypercholesterolemia: No Hx Pacemaker: No HX Cerebrovascular Accident: No Hx Seizures: No Hx Dementia: No Hx Diabetes: No Hx Gastrointestinal Disorders: No Hx Liver Disease: No Hx Genitourinary Disorders: No Hx Sexually Transmitted Disorders: No Hx Renal Disease (ESRD): No Hx Thyroid Disease: No Hx Human Immunodeficiency Virus (HIV): No (last tested 4 months, declines testing ) Hx Hepatitis C: No Hx Depression: Yes (On seroquel) Hx Suicide Attempt: No Hx Bipolar Disorder: No Hx Schizophrenia: No - Patient Surgical History Past Surgical History: No Hx Neurologic Surgery: No Hx Cataract Extraction: No Hx Cardiac Surgery: No Hx Lung Surgery: No Hx Breast Surgery: No Hx Breast Biopsy: No Hx Abdominal Surgery: No Hx Appendectomy: No Hx Cholecystectomy: No Hx Genitourinary Surgery: No Hx Section: No Hx Orthopedic Surgery: No Other Surgical History: fx, left mandible in 2011 Anesthesia Reaction: No - PPD History Previous Implant?: No Documented Results: Positive w/proof Implanted On Prior [facility] Admission?: No Date: 06/23/18 (CXR negative) Results: Hx PPD (+) w/rx PPD to be Administered?: No - Smoking Cessation Smoking history: Current every day smoker Have you smoked in the past 12 months: Yes Aproximately how many cigarettes per day: 10 Cigars Per Day: 0 Hx Chewing Tobacco Use: No Initiated information on smoking cessation: Yes 'Breaking Loose' booklet given: 10/22/18 - Substance & Tx. History Hx Alcohol Use: Yes Hx Substance Use: Yes Substance Use Type: Alcohol, Cocaine Hx Substance Use Treatment: Yes - Substances Abused Alcohol Route: Oral Frequency: Daily Amount used: 4 PINTS Age of first use: 28 Date of Last Use: 10/22/18 Cocaine Route: Smoking Frequency: Daily Amount used: $300 Age of first use: 32 Date of Last Use: 10/22/18 Family Disease History - Family Disease History Family Disease History: Other: Father (, cancer ), Mother (, homicide ) Admission Physical Exam [facility] - Vital Signs Vital Signs: Vital Signs - 24 hr 10/22/18 18:31 Temperature 97.8 F Pulse Rate 86 Respiratory 18 Rate Blood Pressure 118/80 - Physical General Appearance: Yes: Appropriately Dressed, Mild Distress, Tremorous, Sweating, Anxious HEENTM: Yes: EOMI, Hearing grossly Normal, Normocephalic, Normal Voice, MELINDA Respiratory: Yes: Chest Non-Tender, Lungs Clear, Normal Breath Sounds, No Respiratory Distress Neck: Yes: No masses,lesions,Nodules, Supple Breast: Yes: Breast Exam Deferred Cardiology: Yes: Regular Rhythm, Regular Rate, S1, S2 (split) Abdominal: Yes: Non Tender, Soft, Increased Bowel Sounds Genitourinary: Yes: Within Normal Limits Back: Yes: Within Normal Limits Musculoskeletal: Yes: Within Normal Limits Extremities: Yes: Normal Capillary Refill, Normal Inspection, Normal Range of Motion, Non-Tender, Tremors (Of hands when arms extended) Neurological: Yes: parachutist/combatant diver qualified II-XII NML intact, Alert, Motor Strength 5/5, Normal Mood /Affect Integumentary: Yes: Normal Color, Dry, Warm, Other (whitish, flaky tissue on feet w/ small cracks between toes. No drainage.) Lymphatic: Yes: Within Normal Limits - Diagnostic (1) Alcohol dependence with uncomplicated withdrawal Current Visit: Yes Status: Acute (2) Cocaine dependence, uncomplicated Current Visit: Yes Status: Chronic (3) Nicotine dependence Current Visit: Yes Status: Chronic Qualifiers: Nicotine product type: cigarettes Substance use status: in withdrawal Qualified Code(s): F17.213 - Nicotine dependence, cigarettes, with withdrawal (4) Positive PPD Current Visit: No Status: Chronic Comment: Rx'd in past with INH and B-6. Last CX-Ray 06/23/18. (5) Tinea pedis Current Visit: Yes Status: Chronic Qualifiers: Laterality: bilateral Qualified Code(s): B35.3 - Tinea pedis Cleared for Admission [facility] - Detox or Rehab [facility] Level of Care: Medically Managed Detox Regimen/Protocol: Librium [facility] Breath Alcohol Content Breath Alcohol Content: 0 Urine Drug Screen - Results Drug Screen Negative: No Urine Drug Screen Results: FREDDY-Cocaine, BZO-Benzodiazepines
[2018-10-22] MEDS ORDERED: chlordiazePOXIDE HCL 25 MG CAPSULE PO PRN (23:41)
[2018-10-22] MEDS ORDERED: MENTHOL/PHENOL 1 EACH UD MM PRN (23:41)
[2018-10-22] MEDS ORDERED: NICOTINE POLACRILEX 2 MG GUM BUC PRN (23:41)
[2018-10-22] MEDS ORDERED: ACETAMINOPHEN 325 MG TABLET (FP) PO PRN (23:41)
[2018-10-22] MEDS ORDERED: LOPERAMIDE HCL 2 MG CAPSULE PO PRN (23:41)
[2018-10-22] MEDS ORDERED: MAGNESIUM CITRATE 300 ML BOTTLE PO PRN (23:41)
[2018-10-22] MEDS ORDERED: IBUPROFEN 400 MG TABLET (FP) PO PRN (23:41)
[2018-10-22] MEDS ORDERED: MAG HYDROX/AL HYDROX/SIMETH 30 ML UNIT-DOSE CUP PO PRN (23:41)
[2018-10-22] MEDS ORDERED: MAGNESIUM HYDROX 2400MG/30ML ORAL SUSPENSION 30 ML CUP PO PRN (23:41)
[2018-10-23] MEDS: chlordiazePOXIDE HCL 25 MG CAPSULE PO SCH ×5 (00:14→22:29)
--- NOTE | 2018-10-23 10:25 | PN ---
[facility] CIWA - CIWA Score Nausea/Vomitin-No Nausea/No Vomiting Muscle Tremors: 3 Anxiety: 4-Mod. Anxious/Guarded Agitation: 4-Moderately Restless Paroxysmal Sweats: No Perspiration Orientation: 0-Oriented Tacttile Disturbances: 0-None Auditory Disturbances: 0-None Visual Disturbances: 0-None Headache: 0-None Present CIWA-Ar Total Score: 11 BHS Progress Note (SOAP) Subjective: PATIENT C/O ANXIETY, RESTLESSNESS, SLEEP DISTURBANCE AND SHAKES/CHILLS Objective: 10/23/18 10:24 Vital Signs Temperature 95.9 F L 10/23/18 09:14 Pulse Rate 75 10/23/18 09:14 Respiratory Rate 18 10/23/18 09:14 Blood Pressure 104/79 10/23/18 09:14 O2 Sat by Pulse Oximetry (%) PE: ALERT AND ORIENTED X 3 SKIN WARM AND DRY EXT +TREMORS ANXIOUS/RESTLESSNESS AMB AD JUAN PABLO Assessment: 10/23/18 10:25 WITHDRAWAL SX Plan: CONTINUE DETOX ENCOURAGE ORAL FLUIDS CONTINUE TO MONITOR CLINICALLY
[2018-10-23 10:35] LABS: HEMATOCRIT 39.4 % (35.4-49); MCH 32.3 pg (25.7-33.7); MCHC 35.5 g/dl (32.0-35.9); MEAN CELL VOLUME 91.1 fl (80-96); MEAN PLT VOLUME 9.5 fl (7.5-11.1); PLATELET COUNT 198 K/MM3 (134-434); RBC 4.32 M/mm3 (4.00-5.60); RDW 15.1 % (11.9-15.9); WHITE BLOOD COUNT 4.3 K/mm3 (4.0-10.0)
[2018-10-23] MEDS: NICOTINE 21 MG/24 HOURS TOPICAL PATCH TD SCH (10:37)
[2018-10-23] MEDS: PRENATAL VITAMINS W/ FOLIC ACID TABLET (FP) PO SCH (10:37)
[2018-10-23] MEDS: TOLNAFTATE 1% CREAM 15 GM TUBE TP SCH ×2 (10:38→22:29)
[2018-10-23 10:54] LABS: ALBUMIN 3.4 g/dl (3.4-5.0); ALK PHOS 77 U/L (45-117); ANION GAP 8 MMOL/L (8-16); BILIRUBIN,TOTAL 0.4 mg/dL (0.2-1); BLOOD UREA NITROGEN 17 mg/dL (7-18); CALCIUM 8.8 mg/dL (8.5-10.1); CHLORIDE 106 mmol/L (98-107); CO2 27 mmol/L (21-32); CREATININE 1.1 mg/dL (0.55-1.3); GLUCOSE,RANDOM 79 mg/dL (74-106); POTASSIUM 4.4 mmol/L (3.5-5.1); SGOT/AST 26 U/L (15-37); SGPT/ALT 36 U/L (13-61); SODIUM 141 mmol/L (136-145); TOT PROT 6.7 g/dl (6.4-8.2)
--- NOTE | 2018-10-23 14:19 | CONSULT ---
[facility] Psychiatric Consult - Data Date of interview: 10/23/18 Admission source: [facility] Identifying data: Patient is a 57 year old single male, without children, unemployed, homeless, and is supported by [facility]. This is one multiple admissions to detox at [facility]. Patient admitted to for alcohol and cocaine dependencce. Substance Abuse History: - Smoking Cessation. Smoking history: Current every day smoker. Have you smoked in the past 12 months: Yes. Aproximately how many cigarettes per day: 10. Cigars Per Day: 0. Hx Chewing Tobacco Use: No. Initiated information on smoking cessation: Yes. 'Breaking Loose' booklet given : 10/22/18. - Substance & Tx. History. Hx Alcohol Use: Yes. Hx Substance Use : Yes. Substance Use Type: Alcohol, Cocaine. Hx Substance Use Treatment: Yes. - Substances Abused. Alcohol. Route: Oral. Frequency: Daily. Amount used: 4 PINTS. Age of first use: 28. Date of Last Use: 10/22/18. Cocaine. Route: Smoking. Frequency: Daily. Amount used: $300. Age of first use: 32. Date of Last Use: 10/22/18 Medical History: fx, left mandible in 2011 Psychiatric History: Patient reports two psychiatric hospitalizations at [facility] for depression(2010). He reports h/o accepting seroquel 100mg while incarcerated. Denies outpatient psychiatric care. Patient was recently on detox in August 2018 and was prescribed seroquel 100mg qhs. Patient denies h/o suicide attempt. Physical/Sexual Abuse/Trauma History: denies. Mental Status Exam - Mental Status Exam Alert and Oriented to: Time, Place, Person Cognitive Function: Good Patient Appearance: Well Groomed Mood: Euthymic Affect: Mood Congruent Patient Behavior: Sedated (mildly sedated.) Speech Pattern: Appropriate Voice Loudness: Moderately Soft/Quiet Thought Process: Intact, Goal Oriented Thought Disorder: Not Present Hallucinations: Denies Suicidal Ideation: Denies Homicidal Ideation: Denies Insight/Judgement: Poor Sleep: Fair Muscle strength/Tone: Normal Gait/Station: Normal Psychiatric Findings - Problem List ([place] 1, 2,3) (1) Alcohol dependence with uncomplicated withdrawal Current Visit: Yes Status: Acute (2) Cocaine dependence, uncomplicated Current Visit: Yes Status: Chronic (3) Nicotine dependence Current Visit: Yes Status: Chronic Qualifiers: Nicotine product type: cigarettes Substance use status: in withdrawal Qualified Code(s): F17.213 - Nicotine dependence, cigarettes, with withdrawal (4) Substance-induced sleep disorder Current Visit: Yes Status: Acute - Initial Treatment Plan Initial Treatment Plan: Psychoeducation provided. Detoxification in progress. Will order Seroquel 50mg qhs. Benefits and side effects discussed. Verbal consent given.
[2018-10-23] MEDS: THIAMINE HCL 100 MG TABLET (FP) PO SCH (22:28)
[2018-10-23] MEDS ORDERED: QUEtiapine FUMARATE 50 MG TABLET PO SCH (22:50)
[2018-10-24] MEDS: chlordiazePOXIDE HCL 25 MG CAPSULE PO SCH ×3 (06:19→17:01)
[2018-10-24] MEDS: PRENATAL VITAMINS W/ FOLIC ACID TABLET (FP) PO SCH (10:44)
[2018-10-24] MEDS: NICOTINE 21 MG/24 HOURS TOPICAL PATCH TD SCH (10:45)
[2018-10-24] MEDS: TOLNAFTATE 1% CREAM 15 GM TUBE TP SCH ×2 (10:45→22:56)
--- NOTE | 2018-10-24 10:46 | PN ---
S CIWA - CIWA Score Nausea/Vomitin Muscle Tremors: None Anxiety: 2 Agitation: 2 Paroxysmal Sweats: 2 Orientation: 0-Oriented Tacttile Disturbances: 0-None Auditory Disturbances: 0-None Visual Disturbances: 0-None Headache: 0-None Present CIWA-Ar Total Score: 8 BHS Progress Note (SOAP) Subjective: PATIENT C/O INTERRUPTED SLEEP, NAUSEA, ANXIETY AND INTERMITTENT SWEATING. Objective: 10/24/18 10:45 Vital Signs Temperature 97.7 F 10/24/18 09:59 Pulse Rate 60 10/24/18 09:59 Respiratory Rate 16 10/24/18 09:59 Blood Pressure 95/53 L 10/24/18 09:59 O2 Sat by Pulse Oximetry (%) Laboratory Tests 10/23/18 10/23/18 10/23/18 07:00 07:00 07:00 WBC 4.3 RBC 4.32 Hgb 14.0 Hct 39.4 MCV 91.1 MCH 32.3 MCHC 35.5 RDW 15.1 Plt Count 198 MPV 9.5 Sodium 141 Potassium 4.4 Chloride 106 Carbon Dioxide 27 Anion Gap 8 BUN 17 Creatinine 1.1 Creat Clearance w eGFR > 60 Random Glucose 79 Calcium 8.8 Total Bilirubin 0.4 AST 26 ALT 36 Alkaline Phosphatase 77 Total Protein 6.7 Albumin 3.4 RPR Titer Nonreactive PE: ALERT AND ORIENTED X 3 SKIN WARM AND DRY EXT FULL ROM, AMB AD JUAN PABLO ANXIOUS Assessment: 10/24/18 10:46 WITHDRAWAL SX Plan: CONTINUE DETOX REGIMEN ENCOURAGE ORAL FLUIDS CONTINUE TO MONITOR CLINICALLY
--- NOTE | 2018-10-24 18:34 | PN ---
S Progress Note Note: Psychiatric nurse practitioner note: Patient able to tolerate seroquel 50mg qhs and is requesting an increase in seroquel dose. Chart reviewed and noted patient has accepted seroquel 100mg while in detox. Will order Seroquel 100mg qhs. Verbal consent given.
[2018-10-24] MEDS: QUEtiapine FUMARATE 100 MG TABLET (FP) PO SCH (22:24)
[2018-10-24] MEDS: chlordiazePOXIDE 5 MG CAPSULE PO SCH (22:24)
[2018-10-24] MEDS: THIAMINE HCL 100 MG TABLET (FP) PO SCH (22:56)
[2018-10-25] MEDS: chlordiazePOXIDE 5 MG CAPSULE PO SCH ×3 (06:36→17:22)
[2018-10-25] MEDS: PRENATAL VITAMINS W/ FOLIC ACID TABLET (FP) PO SCH (10:24)
[2018-10-25] MEDS: NICOTINE 21 MG/24 HOURS TOPICAL PATCH TD SCH (10:25)
[2018-10-25] MEDS: TOLNAFTATE 1% CREAM 15 GM TUBE TP SCH ×2 (10:25→21:59)
--- NOTE | 2018-10-25 10:47 | PN ---
BHS Progress Note Note: ALERT O X 3. OOB AMBULATING WITH STEADY GAIT.
--- NOTE | 2018-10-25 10:48 | PN ---
BHS Progress Note (SOAP) Subjective: PT IS OOB AMBULATING WITH STEADY GAIT. SLIGHT ANXIETY, IRRITABILITY. Objective: 10/25/18 10:48 Vital Signs 10/25/18 10/25/18 10/25/18 03:30 06:19 06:26 Temperature 97.4 F L Pulse Rate 65 Respiratory 18 18 18 Rate Blood Pressure 109/66 10/25/18 09:27 Temperature 97.0 F L Pulse Rate 64 Respiratory 18 Rate Blood Pressure 131/73 Laboratory Tests 10/23/18 10/23/18 10/23/18 07:00 07:00 07:00 WBC 4.3 RBC 4.32 Hgb 14.0 Hct 39.4 MCV 91.1 MCH 32.3 MCHC 35.5 RDW 15.1 Plt Count 198 MPV 9.5 Sodium 141 Potassium 4.4 Chloride 106 Carbon Dioxide 27 Anion Gap 8 BUN 17 Creatinine 1.1 Creat Clearance w eGFR > 60 Random Glucose 79 Calcium 8.8 Total Bilirubin 0.4 AST 26 ALT 36 Alkaline Phosphatase 77 Total Protein 6.7 Albumin 3.4 RPR Titer Nonreactive Assessment: 10/25/18 10:48 W/S Plan: CONTINUE DETOX
[2018-10-25] MEDS: chlordiazePOXIDE HCL 10 MG CAPSULE PO SCH (21:59)
[2018-10-25] MEDS: QUEtiapine FUMARATE 100 MG TABLET (FP) PO SCH (21:59)
[2018-10-25] MEDS: THIAMINE HCL 100 MG TABLET (FP) PO SCH (21:59)
[2018-10-26 06:18] VITALS: BP 106/64; PULSE 54; TEMP 96.7
[2018-10-26] MEDS: chlordiazePOXIDE HCL 10 MG CAPSULE PO SCH (07:08)
--- NOTE | 2018-10-26 11:41 | DS ---
[facility] Detox Discharge Summary Admission Date: 10/22/18 Discharge Date: 10/26/18 - History Present History: Alcohol Dependence, Cocaine Dependence Additional Comments: Patient scheduled for discharge today. Patient wanted rehab but no beds available. Patient is A, A, Ox3, in nad, ambulatory. Patient instructed to follow up with PCP within 1-2 weeks. Pertinent Past History: Alcohol dependence Cocaine dependence Nicotine dependence PPD positive - Physical Exam Results Vital Signs: Vital Signs Temperature 96.7 F L 10/26/18 06:17 Pulse Rate 54 L 10/26/18 06:17 Respiratory Rate 18 10/26/18 06:17 Blood Pressure 106/64 10/26/18 06:17 O2 Sat by Pulse Oximetry (%) Pertinent Admission Physical Exam Findings: Withdrawal symptoms Laboratory Tests 10/23/18 10/23/18 10/23/18 07:00 07:00 07:00 WBC 4.3 RBC 4.32 Hgb 14.0 Hct 39.4 MCV 91.1 MCH 32.3 MCHC 35.5 RDW 15.1 Plt Count 198 MPV 9.5 Sodium 141 Potassium 4.4 Chloride 106 Carbon Dioxide 27 Anion Gap 8 BUN 17 Creatinine 1.1 Creat Clearance w eGFR > 60 Random Glucose 79 Calcium 8.8 Total Bilirubin 0.4 AST 26 ALT 36 Alkaline Phosphatase 77 Total Protein 6.7 Albumin 3.4 RPR Titer Nonreactive Labs reviewed - Treatment Hospital Course: Detox Protocol Followed, Detoxed Safely, Responded well, Discharged Condition Good - Medication Discharge Medications: Ambulatory Orders Quetiapine Fumarate [Seroquel] 100 mg PO HS #30 tablet 10/26/18 - Diagnosis (1) Alcohol dependence with uncomplicated withdrawal Status: Acute (2) Nicotine dependence Status: Chronic Qualifiers: Nicotine product type: cigarettes Substance use status: in withdrawal Qualified Code(s): F17.213 - Nicotine dependence, cigarettes, with withdrawal (3) Cocaine dependence, uncomplicated Status: Chronic (4) Positive PPD Status: Chronic (5) Tinea pedis Status: Acute Qualifiers: Laterality: bilateral Qualified Code(s): B35.3 - Tinea pedis - AMA Did Patient Leave Against Medical Advice: No (F/U with your PCP within 1-2 weeks )
== END 2018-10-26 09:45 | disposition home or self-care (01) | DRG 774 ==
LOC: YASAS 16:51 → Y3N 23:59
PROC: HZ2ZZZZ Detoxification Services for Substance Abuse Treatment (ICD-10-PCS; principal; 2018-10-22)
DX: F10.230 Alcohol dependence with withdrawal, uncomplicated (principal); F14.20 Cocaine dependence, uncomplicated; F17.213 Nicotine dependence, cigarettes, with withdrawal; F19.282 Other psychoactive substance dependence with psychoactive substance-induced sleep disorder; B35.3 Tinea pedis; R76.11 Nonspecific reaction to tuberculin skin test without active tuberculosis; Z59.0 Homelessness
CPT/HCPCS: 36415; 80053; 85027; 86593

== ENCOUNTER 2018-12-07 11:10 | Inpatient (IN) | payer OTHER ==
[2018-12-07 12:20] VITALS: BMI 25.1
--- NOTE | 2018-12-07 16:28 | HP ---
CIWA Score Nausea/Vomitin Muscle Tremors: 2 Anxiety: 3 Agitation: 3 Paroxysmal Sweats: 3 Orientation: 0-Oriented Tacttile Disturbances: 0-None Auditory Disturbances: 0-None Visual Disturbances: 0-None Headache: 0-None Present CIWA-Ar Total Score: 13 - Admission Criteria OASAS Guidelines: Admission for Medically Managed Detox: Requires at least one of the followin. CIWA greater than 12 2. Seizures within the past 24 hours 3. Delirium tremens within the past 24 hours 4. Hallucinations within the past 24 hours 5. Acute intervention needed for co occurring medical disorder 6. Acute intervention needed for co occurring psychiatric disorder 7. Severe withdrawal that cannot be handled at a lower level of care (continued vomiting, continued diarrhea, abnormal vital signs) requiring intravenous medication and/or fluids 8. Patient presents the following: CIWA greater than 12 Admission Criteria Met: Admission criteria met Admission ROS [facility] - [facility] Chief Complaint: "I need to detox , I have a problem" Allergies/Adverse Reactions: Allergies Allergy/AdvReac Type Severity Reaction Status Date / Time No Known Allergies Allergy Verified 12/07/18 12:39 History of Present Illness: 57 y/o male presents requesting detox from alcohol. Last here 10/22/18, states he has only been sober when he is in nursing home. Denies past nor current SI. Denies any medical hx. Endorses Depression (on Seroquel) - Ebola screening Have you traveled outside of the country in the last 21 days: No (N) Have you had contact with anyone from an Ebola affected area: No Have you been sick,other than usual withdrawal symptoms: No Do you have a fever: No - Review of Systems Constitutional: Loss of Appetite, Night Sweats, Unintentional Wgt. Loss EENT: reports: No Symptoms Reported, Dental Problems (missing teeth) Respiratory: reports: No Symptoms reported Cardiac: reports: No Symptoms Reported GI: reports: No Symptoms Reported : reports: No Symptoms Reported Musculoskeletal: reports: No Symptoms Reported Integumentary: reports: No Symptoms Reported Neuro: reports: Headache Endocrine: reports: No Symptoms Reported Hematology: reports: No Symptoms Reported Psychiatric: reports: Mood/Affect Appropiate, Orientated x3, Anxious Other Systems: Reviewed and Negative Patient History - Patient Medical History Hx Anemia: No Hx Asthma: No Hx Chronic Obstructive Pulmonary Disease (COPD): No Hx Cancer: No Hx Cardiac Disorders: No Hx Congestive Heart Failure: No Hx Hypertension: No Hx Hypercholesterolemia: No Hx Pacemaker: No HX Cerebrovascular Accident: No Hx Seizures: No Hx Dementia: No Hx Diabetes: No Hx Gastrointestinal Disorders: No Hx Liver Disease: No Hx Genitourinary Disorders: No Hx Sexually Transmitted Disorders: No Hx Renal Disease (ESRD): No Hx Thyroid Disease: No Hx Human Immunodeficiency Virus (HIV): No (last tested 4 months, declines testing ) Hx Hepatitis C: No Hx Depression: Yes (On seroquel) Hx Suicide Attempt: No Hx Bipolar Disorder: No Hx Schizophrenia: No - Patient Surgical History Past Surgical History: No Hx Neurologic Surgery: No Hx Cataract Extraction: No Hx Cardiac Surgery: No Hx Lung Surgery: No Hx Breast Surgery: No Hx Breast Biopsy: No Hx Abdominal Surgery: No Hx Appendectomy: No Hx Cholecystectomy: No Hx Genitourinary Surgery: No Hx Section: No Hx Orthopedic Surgery: No Other Surgical History: fx, left mandible in 2011 Anesthesia Reaction: No - PPD History Previous Implant?: Yes Documented Results: Negative w/proof Implanted On Prior [facility] Admission?: Yes Date: 06/23/18 Results: NEGATIVE PPD to be Administered?: No - Reproductive History Patient is a Female of Child Bearing Age (11 -55 yrs old): No - Smoking Cessation Smoking history: Current every day smoker Have you smoked in the past 12 months: Yes Aproximately how many cigarettes per day: 10 Cigars Per Day: 0 Hx Chewing Tobacco Use: No Initiated information on smoking cessation: Yes 'Breaking Loose' booklet given: 12/07/18 - Substance & Tx. History Hx Alcohol Use: Yes Substance Use Type: Cocaine Hx Substance Use Treatment: Yes - Substances Abused Alcohol Route: Oral Frequency: Daily Amount used: 3 PINTS OF BACARDI, 2- 6 PACKS OF BEER Age of first use: 28 Date of Last Use: 12/06/18 Cocaine Route: Smoking Frequency: Daily Amount used: $300 Age of first use: 37 Date of Last Use: 12/06/18 PERCOCET Route: Oral Frequency: 1-3 times last 30 days Amount used: 1 TAB Age of first use: 57 Date of Last Use: 11/30/18 Family Disease History - Family Disease History Family Disease History: Other: Father (, cancer ), Mother (, homicide ) Admission Physical Exam [facility] - Vital Signs Vital Signs: Vital Signs - 24 hr 12/07/18 12:11 Temperature 98.1 F Pulse Rate 83 Respiratory 18 Rate Blood Pressure 132/82 - Physical General Appearance: Yes: Mild Distress Respiratory: Yes: Lungs Clear, No Respiratory Distress, No Accessory Muscle Use Neck: Yes: No masses,lesions,Nodules, Trachea in good position Breast: Yes: Breast Exam Deferred Cardiology: Yes: Within Normal Limits Abdominal: Yes: Within Normal Limits, Normal Bowel Sounds, Non Tender, Soft Genitourinary: Yes: Within Normal Limits Back: Yes: Within Normal Limits, Normal Inspection Musculoskeletal: Yes: full range of Motion, Gait Steady Extremities: Yes: Within Normal Limits, Normal Capillary Refill, Normal Inspection, Normal Range of Motion Neurological: Yes: Within Normal Limits, Fully Oriented, Alert, Normal Mood/ Affect Integumentary: Yes: Within Normal Limits Lymphatic: Yes: Within Normal Limits - Diagnostic (1) Alcohol dependence with uncomplicated withdrawal Current Visit: No Status: Acute (2) Opioid use disorder Current Visit: No Status: Acute (3) Cocaine dependence, uncomplicated Current Visit: No Status: Chronic (4) Nicotine dependence Current Visit: No Status: Chronic Qualifiers: Nicotine product type: cigarettes Substance use status: in withdrawal Qualified Code(s): F17.213 - Nicotine dependence, cigarettes, with withdrawal Cleared for Admission [facility] - Detox or Rehab [facility] Level of Care: Medically Managed Detox Regimen/Protocol: Librium [facility] Breath Alcohol Content Breath Alcohol Content: 0 Urine Drug Screen - Results Drug Screen Negative: No Urine Drug Screen Results: FREDDY-Cocaine, BZO-Benzodiazepines
[2018-12-07] MEDS ORDERED: chlordiazePOXIDE HCL 25 MG CAPSULE PO PRN (16:35)
[2018-12-07] MEDS ORDERED: MAGNESIUM CITRATE 300 ML BOTTLE PO PRN (16:35)
[2018-12-07] MEDS ORDERED: MAG HYDROX/AL HYDROX/SIMETH 30 ML UNIT-DOSE CUP PO PRN (16:35)
[2018-12-07] MEDS ORDERED: MENTHOL/PHENOL 1 EACH UD MM PRN (16:35)
[2018-12-07] MEDS ORDERED: ACETAMINOPHEN 325 MG TABLET (FP) PO PRN (16:35)
[2018-12-07] MEDS ORDERED: LOPERAMIDE HCL 2 MG CAPSULE PO PRN (16:35)
[2018-12-07] MEDS ORDERED: MAGNESIUM HYDROX 2400MG/30ML ORAL SUSPENSION 30 ML CUP PO PRN (16:35)
[2018-12-07] MEDS ORDERED: NICOTINE POLACRILEX 2 MG GUM BC PRN (16:35)
[2018-12-07] MEDS ORDERED: guaiFENesin/D-METHORPHAN HB 10 ML UNIT-DOSE CUPS PO PRN (16:35)
[2018-12-07] MEDS ORDERED: chlordiazePOXIDE HCL 25 MG CAPSULE PO ONE (16:35)
[2018-12-07] MEDS: chlordiazePOXIDE HCL 25 MG CAPSULE PO SCH ×2 (17:47→22:28)
[2018-12-07] MEDS: NICOTINE 14 MG/24 HOURS TOPICAL PATCH TD SCH (17:49)
[2018-12-07] MEDS ORDERED: MELATONIN 5 MG TABLETS PO PRN (22:00)
[2018-12-07] MEDS: THIAMINE HCL 100 MG TABLET (FP) PO SCH (22:28)
[2018-12-08] MEDS: chlordiazePOXIDE HCL 25 MG CAPSULE PO SCH ×4 (06:59→22:35)
[2018-12-08] MEDS: P-EPHED 60MG/TRIPROLIDI 2.5MG TABLET PO PRN ×2 (07:01→18:02)
[2018-12-08 10:28] LABS: ALBUMIN 3.2 g/dl (3.4-5.0); ALK PHOS 97 U/L (45-117); ANION GAP 7 MMOL/L (8-16); BILIRUBIN,TOTAL 0.4 mg/dL (0.2-1); BLOOD UREA NITROGEN 19 mg/dL (7-18); CALCIUM 8.8 mg/dL (8.5-10.1); CHLORIDE 105 mmol/L (98-107); CO2 27 mmol/L (21-32); CREATININE 1.1 mg/dL (0.55-1.3); GLUCOSE,RANDOM 77 mg/dL (74-106); SGOT/AST 23 U/L (15-37); SGPT/ALT 49 U/L (13-61); SODIUM 139 mmol/L (136-145); TOT PROT 6.5 g/dl (6.4-8.2)
[2018-12-08 10:33] LABS: HEMOGLOBIN 13.3 GM/dL (11.7-16.9); MCH 30.8 pg (25.7-33.7); MCHC 34.2 g/dl (32.0-35.9); MEAN PLT VOLUME 9.3 fl (7.5-11.1); PLATELET COUNT 221 K/MM3 (134-434); RBC 4.33 M/mm3 (4.00-5.60); RDW 13.9 % (11.9-15.9); WHITE BLOOD COUNT 5.6 K/mm3 (4.0-10.0)
[2018-12-08] MEDS: PRENATAL VITAMINS W/ FOLIC ACID TABLET (FP) PO SCH (10:47)
[2018-12-08] MEDS: NICOTINE 14 MG/24 HOURS TOPICAL PATCH TD SCH (10:50)
--- NOTE | 2018-12-08 15:03 | PN ---
S CIWA - CIWA Score Nausea/Vomitin-No Nausea/No Vomiting Muscle Tremors: None Anxiety: 0-No Anxiety, at Ease Agitation: 0-Normal Activity Paroxysmal Sweats: 3 Orientation: 0-Oriented Tacttile Disturbances: 2-Mild Itch/Numbness/Burn Auditory Disturbances: 2-Mild Harshness/Frighten Visual Disturbances: 3-Moderate Sensitivity Headache: 0-None Present CIWA-Ar Total Score: 10 B[facility] Progress Note (SOAP) Subjective: Sweating, Nasal Congestion, Body Aches. Objective: PATIENT A & O X 3, OBSERVED AMBULATING ON UNIT. IN NO ACUTE DISTRESS. 12/08/18 15:02 Vital Signs Temperature 98.1 F 12/08/18 13:24 Pulse Rate 83 12/08/18 13:24 Respiratory Rate 18 12/08/18 13:24 Blood Pressure 132/73 12/08/18 13:24 O2 Sat by Pulse Oximetry (%) Laboratory Tests 12/08/18 12/08/18 12/08/18 08:15 08:15 08:15 WBC 5.6 RBC 4.33 Hgb 13.3 Hct 39.0 MCV 90.0 MCH 30.8 MCHC 34.2 RDW 13.9 Plt Count 221 MPV 9.3 Sodium 139 Potassium 4.0 Chloride 105 Carbon Dioxide 27 Anion Gap 7 L BUN 19 H Creatinine 1.1 Creat Clearance w eGFR > 60 Random Glucose 77 Calcium 8.8 Total Bilirubin 0.4 AST 23 ALT 49 Alkaline Phosphatase 97 Total Protein 6.5 Albumin 3.2 L RPR Titer Nonreactive LABS NOTED. Assessment: 12/08/18 15:02 WITHDRAWAL SYMPTOMS. Plan: CONTINUE DETOX. INCREASE DAILY PO FLUID INTAKE.
[2018-12-08] MEDS: IBUPROFEN 400 MG TABLET (FP) PO PRN (18:00)
[2018-12-08] MEDS: THIAMINE HCL 100 MG TABLET (FP) PO SCH (22:35)
[2018-12-09] MEDS: chlordiazePOXIDE HCL 25 MG CAPSULE PO SCH ×2 (05:41→11:27)
[2018-12-09] MEDS: NICOTINE 14 MG/24 HOURS TOPICAL PATCH TD SCH (11:25)
[2018-12-09] MEDS: PRENATAL VITAMINS W/ FOLIC ACID TABLET (FP) PO SCH (11:27)
--- NOTE | 2018-12-09 11:27 | PN ---
S CIWA - CIWA Score Nausea/Vomitin-No Nausea/No Vomiting Muscle Tremors: 3 Anxiety: 3 Agitation: 3 Paroxysmal Sweats: 3 Orientation: 0-Oriented Tacttile Disturbances: 0-None Auditory Disturbances: 0-None Visual Disturbances: 0-None Headache: 0-None Present CIWA-Ar Total Score: 12 S Progress Note (SOAP) Subjective: body aches interrupted sleep sweats shakes Objective: 12/09/18 11:21 Vital Signs Temperature 96.8 F L 12/09/18 09:16 Pulse Rate 79 12/09/18 09:16 Respiratory Rate 18 12/09/18 09:16 Blood Pressure 129/66 12/09/18 09:16 O2 Sat by Pulse Oximetry (%) Laboratory Tests 12/08/18 12/08/18 12/08/18 08:15 08:15 08:15 WBC 5.6 RBC 4.33 Hgb 13.3 Hct 39.0 MCV 90.0 MCH 30.8 MCHC 34.2 RDW 13.9 Plt Count 221 MPV 9.3 Sodium 139 Potassium 4.0 Chloride 105 Carbon Dioxide 27 Anion Gap 7 L BUN 19 H Creatinine 1.1 Creat Clearance w eGFR > 60 Random Glucose 77 Calcium 8.8 Total Bilirubin 0.4 AST 23 ALT 49 Alkaline Phosphatase 97 Total Protein 6.5 Albumin 3.2 L RPR Titer Nonreactive aaox3 ambulating no acute distress Assessment: 12/09/18 11:21 withdrawal sx Plan: continue detox increase fluids
[2018-12-09] MEDS: chlordiazePOXIDE 5 MG CAPSULE PO SCH ×2 (17:55→22:05)
[2018-12-09] MEDS: THIAMINE HCL 100 MG TABLET (FP) PO SCH (22:05)
[2018-12-09] MEDS: IBUPROFEN 400 MG TABLET (FP) PO PRN (22:07)
[2018-12-09] MEDS: P-EPHED 60MG/TRIPROLIDI 2.5MG TABLET PO PRN (22:07)
[2018-12-10] MEDS: chlordiazePOXIDE 5 MG CAPSULE PO SCH ×2 (05:09→10:54)
[2018-12-10] MEDS: PRENATAL VITAMINS W/ FOLIC ACID TABLET (FP) PO SCH (10:54)
[2018-12-10] MEDS: NICOTINE 14 MG/24 HOURS TOPICAL PATCH TD SCH (10:55)
[2018-12-10] MEDS: IBUPROFEN 400 MG TABLET (FP) PO PRN (10:57)
[2018-12-10] MEDS: P-EPHED 60MG/TRIPROLIDI 2.5MG TABLET PO PRN (10:57)
--- NOTE | 2018-12-10 11:19 | PN ---
[facility] Progress Note (SOAP) Subjective: sweats irritable agitation Objective: 12/10/18 11:18 Vital Signs Temperature 97.8 F 12/10/18 11:10 Pulse Rate 74 12/10/18 11:10 Respiratory Rate 18 12/10/18 11:10 Blood Pressure 140/78 12/10/18 11:10 O2 Sat by Pulse Oximetry (%) aaox3 ambulating no acute distress Assessment: 12/10/18 11:18 withdrawal sx Plan: continue detox increase fluids
[2018-12-10 13:47] VITALS: BP 137/76; PULSE 82; TEMP 97.2
--- NOTE | 2018-12-10 16:07 | PN ---
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 Pt states he is feeling fine no s/s of withdrawals note. Pt will f/u with outpatient rehab as per discussed with his counselor.
--- NOTE | 2018-12-10 16:07 | DS ---
[facility] Detox Discharge Summary Admission Date: 12/07/18 Discharge Date: 12/10/18 - History Present History: Alcohol Dependence - Physical Exam Results Vital Signs: Vital Signs Temperature 97.2 F L 12/10/18 13:46 Pulse Rate 82 12/10/18 13:46 Respiratory Rate 20 12/10/18 13:46 Blood Pressure 137/76 12/10/18 13:46 O2 Sat by Pulse Oximetry (%) - Treatment Hospital Course: Detox Protocol Followed, Detoxed Safely, Responded well, Discharged Condition Good, Rehab Referral Accepted - Medication Discharge Medications: Ambulatory Orders Quetiapine Fumarate [Seroquel] 100 mg PO HS #30 tablet 10/26/18 - AMA Did Patient Leave Against Medical Advice: No (referred to outpatient rehab)
[2018-12-10] MEDS ORDERED: chlordiazePOXIDE HCL 10 MG CAPSULE PO SCH (17:00)
== END 2018-12-10 16:30 | disposition home or self-care (01) | DRG 773 ==
LOC: YASAS 11:10 → Y6N 17:22
PROC: HZ2ZZZZ Detoxification Services for Substance Abuse Treatment (ICD-10-PCS; principal; 2018-12-07)
DX: F10.230 Alcohol dependence with withdrawal, uncomplicated (principal); F14.20 Cocaine dependence, uncomplicated; F11.10 Opioid abuse, uncomplicated; F17.213 Nicotine dependence, cigarettes, with withdrawal; F32.9 Major depressive disorder, single episode, unspecified; Z59.0 Homelessness
CPT/HCPCS: 36415; 80053; 85027; 86593

== ENCOUNTER 2019-01-19 09:14 | Inpatient (IN) | payer OTHER ==
[2019-01-19 09:45] VITALS: BMI 25.7
--- NOTE | 2019-01-19 11:48 | HP ---
CIWA Score Nausea/Vomitin Muscle Tremors: 2 Anxiety: 2 Agitation: 2 Paroxysmal Sweats: 1-Minimal Palms Moist Orientation: 0-Oriented Tacttile Disturbances: 1-Very Mild Itch/Numbness Auditory Disturbances: 1-Very Mild Visual Disturbances: 0-None Headache: 2-Mild CIWA-Ar Total Score: 13 - Admission Criteria OASAS Guidelines: Admission for Medically Managed Detox: Requires at least one of the followin. CIWA greater than 12 2. Seizures within the past 24 hours 3. Delirium tremens within the past 24 hours 4. Hallucinations within the past 24 hours 5. Acute intervention needed for co occurring medical disorder 6. Acute intervention needed for co occurring psychiatric disorder 7. Severe withdrawal that cannot be handled at a lower level of care (continued vomiting, continued diarrhea, abnormal vital signs) requiring intravenous medication and/or fluids 8. Patient presents the following: CIWA greater than 12 Admission Criteria Met: Admission criteria met Admission ROS S - HPI Chief Complaint: i need help to stop drinking alcohol,cocaine and xanax Allergies/Adverse Reactions: Allergies Allergy/AdvReac Type Severity Reaction Status Date / Time No Known Allergies Allergy Verified 01/19/19 10:31 History of Present Illness: this 58 years old male with alcohol,cocaine and xanax dependence seeking detox, withdrawal symptom, multiple admission in detox,last admission [facility] 12/07/18 to 12/10/18 nicotine dependence 10 cigarette/day, bipolar disorder with depression weight loss syncope alcohol related Exam Limitations: No Limitations - Ebola screening Have you traveled outside of the country in the last 21 days: No Have you had contact with anyone from an Ebola affected area: No Have you been sick,other than usual withdrawal symptoms: No - Review of Systems Constitutional: Loss of Appetite, Malaise, Night Sweats, Changes in sleep, Weakness, Unintentional Wgt. Loss EENT: reports: Nose Congestion Respiratory: reports: No Symptoms reported Cardiac: reports: No Symptoms Reported GI: reports: Nausea, Poor Appetite, Abdominal cramping : reports: No Symptoms Reported Musculoskeletal: reports: Back Pain, Muscle Pain Integumentary: reports: Dryness Neuro: reports: Headache, Tremors Endocrine: reports: No Symptoms Reported Hematology: reports: No Symptoms Reported Psychiatric: reports: No Sypmtoms Reported, Judgement Intact, Mood/Affect Appropiate, Orientated x3, Agitated, Depressed, other (bipolar disorder) Other Systems: Reviewed and Negative Patient History - Patient Medical History Hx Anemia: No Hx Asthma: No Hx Chronic Obstructive Pulmonary Disease (COPD): No Hx Cancer: No Hx Cardiac Disorders: No Hx Congestive Heart Failure: No Hx Hypertension: No Hx Hypercholesterolemia: No Hx Pacemaker: No HX Cerebrovascular Accident: No Hx Seizures: No Hx Dementia: No Hx Diabetes: No Hx Gastrointestinal Disorders: No Hx Liver Disease: No Hx Genitourinary Disorders: No Hx Sexually Transmitted Disorders: No Hx Renal Disease (ESRD): No Hx Thyroid Disease: No Hx Human Immunodeficiency Virus (HIV): No (last 11/11 negative) Hx Hepatitis C: No Hx Depression: Yes Hx Suicide Attempt: No Hx Bipolar Disorder: Yes Hx Schizophrenia: No Other Medical History: no suicidal,nmo homicidal - Patient Surgical History Past Surgical History: Yes Hx Neurologic Surgery: No Hx Cataract Extraction: No Hx Cardiac Surgery: No Hx Lung Surgery: No Hx Breast Surgery: No Hx Breast Biopsy: No Hx Abdominal Surgery: No Hx Appendectomy: No Hx Cholecystectomy: No Hx Genitourinary Surgery: No Hx Section: No Hx Orthopedic Surgery: No Other Surgical History: fx, left mandible in 2011 Anesthesia Reaction: No - PPD History Previous Implant?: Yes Documented Results: Positive w/o proof Date: 06/23/18 Results: NEGATIVE PPD to be Administered?: No - Smoking Cessation Smoking history: Current every day smoker Have you smoked in the past 12 months: Yes Aproximately how many cigarettes per day: 10 Cigars Per Day: 0 Hx Chewing Tobacco Use: No Initiated information on smoking cessation: Yes 'Breaking Loose' booklet given: 01/19/19 - Substance & Tx. History Hx Alcohol Use: Yes Hx Substance Use: Yes Substance Use Type: Alcohol, Cocaine, Tranquilizers Hx Substance Use Treatment: Yes ([facility] 12/07/18 to 12/10/18) - Substances Abused Cocaine Route: Inhalation Frequency: Daily Amount used: $200 Age of first use: 32 Date of Last Use: 01/19/19 Alcohol-vodka/beer Route: Oral Frequency: Daily Amount used: 3 pts./2-6 pks. Age of first use: 32 Date of Last Use: 01/19/19 Xanax Route: Oral Frequency: 1-2 times per week Amount used: 4 mg. Age of first use: 58 Date of Last Use: 01/18/19 Family Disease History - Family Disease History Family Disease History: Other: Father (, cancer ), Mother (, homicide ) Admission Physical Exam [facility] - Vital Signs Vital Signs: Vital Signs - 24 hr 01/19/19 09:39 Temperature 96.4 F L Pulse Rate 81 Respiratory 18 Rate Blood Pressure 139/79 - Physical General Appearance: Yes: Moderate Distress, Tremorous, Irritable, Sweating HEENTM: Yes: Normal ENT Inspection, MELINDA, Pharynx Normal Respiratory: Yes: Within Normal Limits, Lungs Clear, Normal Breath Sounds Neck: Yes: Within Normal Limits, Supple, Trachea in good position Breast: Yes: Within Normal Limits Cardiology: Yes: Within Normal Limits, Regular Rhythm, Regular Rate, S1, S2 Abdominal: Yes: Within Normal Limits, Normal Bowel Sounds, Non Tender, Soft Genitourinary: Yes: Within Normal Limits Back: Yes: Muscle Spasm Musculoskeletal: Yes: Back pain, Muscle Pain Extremities: Yes: Tremors Neurological: Yes: bobbin disker II-XII NML intact, Fully Oriented, Alert, Motor Strength 5/5 Integumentary: Yes: Dry Lymphatic: Yes: Within Normal Limits - Diagnostic (1) Alcohol dependence with uncomplicated withdrawal Current Visit: No Status: Acute (2) Cocaine dependence Current Visit: No Status: Acute Qualifiers: Substance use status: uncomplicated Qualified Code(s): F14.20 - Cocaine dependence, uncomplicated (3) Nicotine dependence Current Visit: No Status: Chronic Qualifiers: Nicotine product type: cigarettes Substance use status: in withdrawal Qualified Code(s): F17.213 - Nicotine dependence, cigarettes, with withdrawal (4) Positive PPD Current Visit: No Status: Chronic Comment: Rx'd in past with [facility] and B-6. Last CX-Ray 06/23/18. (5) Syncope Current Visit: Yes Status: Acute (6) Insomnia Current Visit: No Status: Acute Cleared for Admission [facility] - Detox or Rehab [facility] Level of Care: Medically Managed Detox Regimen/Protocol: Librium [facility] Breath Alcohol Content Breath Alcohol Content: 0 Urine Drug Screen - Results Drug Screen Negative: No Urine Drug Screen Results: FREDDY-Cocaine, BZO-Benzodiazepines Inpatient Rehab Admission - Rehab Decision to Admit Inpatient rehab admission?: No
[2019-01-19] MEDS ORDERED: MAGNESIUM CITRATE 300 ML BOTTLE PO PRN (11:55)
[2019-01-19] MEDS ORDERED: MENTHOL/PHENOL 1 EACH UD MM PRN (11:55)
[2019-01-19] MEDS ORDERED: chlordiazePOXIDE HCL 25 MG CAPSULE PO PRN (11:55)
[2019-01-19] MEDS ORDERED: MAG HYDROX/AL HYDROX/SIMETH 30 ML UNIT-DOSE CUP PO PRN (11:55)
[2019-01-19] MEDS ORDERED: LOPERAMIDE HCL 2 MG CAPSULE PO PRN (11:55)
[2019-01-19] MEDS ORDERED: P-EPHED 60MG/TRIPROLIDI 2.5MG TABLET PO PRN (11:55)
[2019-01-19] MEDS ORDERED: hydrOXYzine PAMOATE 50 MG CAPSULE (FP) PO PRN (11:55)
[2019-01-19] MEDS ORDERED: ACETAMINOPHEN 325 MG TABLET (FP) PO PRN (11:55)
[2019-01-19] MEDS ORDERED: guaiFENesin/D-METHORPHAN HB 10 ML UNIT-DOSE CUPS PO PRN (11:55)
[2019-01-19] MEDS ORDERED: MAGNESIUM HYDROX 2400MG/30ML ORAL SUSPENSION 30 ML CUP PO PRN (11:55)
--- NOTE | 2019-01-19 14:55 | PN ---
[facility] Progress Note Note: patient reported that he is taking seroquel 100 mg hs x "many years" reported psychiatric hospitalization "long time ago" denies history of self harm but but "I am using drug" patient met the psy consultation criterial
--- NOTE | 2019-01-19 16:40 | CONSULT ---
[facility] Psychiatric Consult - Data Date of interview: 01/19/19 Admission source: [facility] Identifying data: Readmission to [facility] for this 58 y/o AA male who presented , at [facility], in ETOH withdrawal and requested detoxification treatment. Co- morbidities : benzodiazepine (xanax), nicotine and cocaine dependence. Interviewed at [address] [place] [address]. Patient is single without dependents, homeless, unemployed and supported on odd jobs. Substance Abuse History: Confirmed by patient in this session. Details in current [facility] report : Smoking history: Current every day smoker. Have you smoked in the past 12 months: Yes. Aproximately how many cigarettes per day: 10. Cigars Per Day: 0. Hx Chewing Tobacco Use: No. Initiated information on smoking cessation: Yes. 'Breaking Loose' booklet given: 01/19/19. - Substance & Tx. History. Hx Alcohol Use: Yes. Hx Substance Use: Yes. Substance Use Type : Alcohol, Cocaine, Tranquilizers. Hx Substance Use Treatment: Yes ([facility] to 12/10/18). - Substances Abused. Cocaine. Route: Inhalation. Frequency: Daily. Amount used: $200. Age of first use: 32. Date of Last Use: 01/19/19. Alcohol-vodka/beer. Route: Oral. Frequency: Daily. Amount used : 3 pts./2-6 pks. Age of first use: 32. Date of Last Use: 01/19/19. Xanax. Route: Oral. Frequency: 1-2 times per week. Amount used: 4 mg. Age of first use: 58. Date of Last Use: 01/18/19 Medical History: History of fracture of mandible (2011). Psychiatric History: Patient denies history of psychiatric hospitalizations. No psychiatric OPD care. Mr Vu is familiar with quetiapine from his time in [facility] where he received that drug for insomnia. No reported history of suicide attempts. Physical/Sexual Abuse/Trauma History: Heavy history of incarceration (23 years in [facility] for attempted murder). Additional Comment: Urine Drug Screen Results: FREDDY-Cocaine, BZO- Benzodiazepines. Noted. Mental Status Exam - Mental Status Exam Alert and Oriented to: Time, Place, Person Cognitive Function: Good Patient Appearance: Well Groomed Mood: Angry, Anxious, Apprehensive (about not missing his appointment, tomorrow , with his pomologist who is coming with papers for patient to sign), Irritable Affect: Mood Congruent, Normal Range Patient Behavior: Fatigued, Cooperative Speech Pattern: Clear, Appropriate Voice Loudness: Normal Thought Process: Intact, Goal Oriented Thought Disorder: Not Present Hallucinations: Denies Suicidal Ideation: Denies Homicidal Ideation: Denies Insight/Judgement: Poor Sleep: Poorly, Difficulty falling asleep (wants to resume seoquel) Appetite: Good Muscle strength/Tone: Normal Gait/Station: Normal Psychiatric Findings - Problem List ([place] 1, 2,3) (1) Alcohol dependence with uncomplicated withdrawal Current Visit: Yes Status: Acute (2) Cocaine dependence Current Visit: Yes Status: Chronic Qualifiers: Substance use status: uncomplicated Qualified Code(s): F14.20 - Cocaine dependence, uncomplicated (3) Nicotine dependence Current Visit: Yes Status: Chronic Qualifiers: Nicotine product type: cigarettes Substance use status: in withdrawal Qualified Code(s): F17.213 - Nicotine dependence, cigarettes, with withdrawal (4) Substance induced mood disorder Current Visit: Yes Status: Chronic (5) Insomnia Current Visit: Yes Status: Chronic - Initial Treatment Plan Initial Treatment Plan: Psychoeducation. Sleep hygiene. Detoxification. Support. Reassurance. Social work team to facilitate the patient's projected interview with his pomologist. Relapse prevention discussed in this session. Motivational teaching. AA meetings. Seroquel 100 mg po hs. Side effects/ benefits discussed with the patient. Mr Vu is in agreement with this plan of care. Observation.
[2019-01-19] MEDS: chlordiazePOXIDE HCL 25 MG CAPSULE PO SCH ×2 (18:27→22:37)
[2019-01-19] MEDS: THIAMINE HCL 100 MG TABLET (FP) PO SCH (21:26)
[2019-01-19] MEDS: QUEtiapine FUMARATE 100 MG TABLET (FP) PO SCH (21:26)
[2019-01-19] MEDS ORDERED: MELATONIN 5 MG TABLETS PO PRN (22:00)
[2019-01-20] MEDS: chlordiazePOXIDE HCL 25 MG CAPSULE PO SCH ×4 (05:34→22:33)
[2019-01-20 10:04] LABS: HEMATOCRIT 40.1 % (35.4-49); HEMOGLOBIN 13.4 GM/dL (11.7-16.9); MCH 30.1 pg (25.7-33.7); MCHC 33.4 g/dl (32.0-35.9); MEAN CELL VOLUME 90.1 fl (80-96); MEAN PLT VOLUME 9.1 fl (7.5-11.1); PLATELET COUNT 271 K/MM3 (134-434); RBC 4.45 M/mm3 (4.00-5.60); RDW 14.8 % (11.9-15.9); WHITE BLOOD COUNT 6.6 K/mm3 (4.0-10.0)
[2019-01-20 10:10] LABS: ALBUMIN 3.9 g/dl (3.4-5.0); ALK PHOS 74 U/L (45-117); ANION GAP 7 MMOL/L (8-16); BILIRUBIN,TOTAL 0.4 mg/dL (0.2-1); BLOOD UREA NITROGEN 11 mg/dL (7-18); CALCIUM 9.5 mg/dL (8.5-10.1); CHLORIDE 104 mmol/L (98-107); CO2 29 mmol/L (21-32); CREATININE 1.1 mg/dL (0.55-1.3); GLUCOSE,RANDOM 98 mg/dL (74-106); POTASSIUM 3.9 mmol/L (3.5-5.1); SGOT/AST 22 U/L (15-37); SGPT/ALT 32 U/L (13-61); SODIUM 140 mmol/L (136-145); TOT PROT 7.6 g/dl (6.4-8.2)
[2019-01-20] MEDS: PRENATAL VITAMINS W/ FOLIC ACID TABLET (FP) PO SCH (11:01)
[2019-01-20] MEDS: IBUPROFEN 400 MG TABLET (FP) PO PRN (11:06)
--- NOTE | 2019-01-20 14:09 | PN ---
S CIWA - CIWA Score Nausea/Vomitin-Mild Nausea/No Vomiting Muscle Tremors: 3 Anxiety: 2 Agitation: 1-Slight > Activity Paroxysmal Sweats: 1-Minimal Palms Moist Orientation: 1-Uncertain about Date Tacttile Disturbances: 0-None Auditory Disturbances: 0-None Visual Disturbances: 0-None Headache: 1-Very Mild CIWA-Ar Total Score: 10 S Progress Note (SOAP) Subjective: tremor sweating less anxious today mild restlessness Objective: 01/20/19 14:09 Vital Signs Temperature 96.8 F L 01/20/19 13:29 Pulse Rate 66 01/20/19 13:29 Respiratory Rate 20 01/20/19 13:29 Blood Pressure 126/78 01/20/19 13:29 O2 Sat by Pulse Oximetry (%) Laboratory Last Values WBC 6.6 K/mm3 (4.0-10.0) 01/20/19 06:00 RBC 4.45 M/mm3 (4.00-5.60) 01/20/19 06:00 Hgb 13.4 GM/dL (11.7-16.9) 01/20/19 06:00 Hct 40.1 % (35.4-49) 01/20/19 06:00 MCV 90.1 fl (80-96) 01/20/19 06:00 MCH 30.1 pg (25.7-33.7) 01/20/19 06:00 MCHC 33.4 g/dl (32.0-35.9) 01/20/19 06:00 RDW 14.8 % (11.9-15.9) 01/20/19 06:00 Plt Count 271 K/MM3 (134-434) D 01/20/19 06:00 MPV 9.1 fl (7.5-11.1) 01/20/19 06:00 Sodium 140 mmol/L (136-145) 01/20/19 06:00 Potassium 3.9 mmol/L (3.5-5.1) 01/20/19 06:00 Chloride 104 mmol/L (98-107) 01/20/19 06:00 Carbon Dioxide 29 mmol/L (21-32) 01/20/19 06:00 Anion Gap 7 MMOL/L (8-16) L 01/20/19 06:00 BUN 11 mg/dL (7-18) 01/20/19 06:00 Creatinine 1.1 mg/dL (0.55-1.3) 01/20/19 06:00 Creat Clearance w eGFR > 60 (>60) 01/20/19 06:00 Random Glucose 98 mg/dL (74-106) 01/20/19 06:00 Calcium 9.5 mg/dL (8.5-10.1) 01/20/19 06:00 Total Bilirubin 0.4 mg/dL (0.2-1) 01/20/19 06:00 AST 22 U/L (15-37) 01/20/19 06:00 ALT 32 U/L (13-61) 01/20/19 06:00 Alkaline Phosphatase 74 U/L (45-117) 01/20/19 06:00 Total Protein 7.6 g/dl (6.4-8.2) 01/20/19 06:00 Albumin 3.9 g/dl (3.4-5.0) 01/20/19 06:00 RPR Titer Nonreactive (NONREACTIVE) 01/20/19 06:00 lab noted Assessment: 01/20/19 14:10 withdrawal sx Plan: continue detox
[2019-01-20] MEDS ORDERED: COLLOIDAL OATMEAL 1 BAR EACH TP PRN (18:19)
[2019-01-20] MEDS: QUEtiapine FUMARATE 100 MG TABLET (FP) PO SCH (21:20)
[2019-01-20] MEDS: THIAMINE HCL 100 MG TABLET (FP) PO SCH (22:33)
[2019-01-21] MEDS: chlordiazePOXIDE HCL 25 MG CAPSULE PO SCH ×2 (05:59→10:47)
[2019-01-21] MEDS: PRENATAL VITAMINS W/ FOLIC ACID TABLET (FP) PO SCH (10:47)
[2019-01-21] MEDS: IBUPROFEN 400 MG TABLET (FP) PO PRN (11:37)
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
[2019-01-21] MEDS: chlordiazePOXIDE 5 MG CAPSULE PO SCH ×2 (18:03→22:46)
[2019-01-21] MEDS: THIAMINE HCL 100 MG TABLET (FP) PO SCH (21:04)
[2019-01-21] MEDS: QUEtiapine FUMARATE 100 MG TABLET (FP) PO SCH (21:04)
[2019-01-22] MEDS: chlordiazePOXIDE 5 MG CAPSULE PO SCH ×2 (07:52→10:28)
[2019-01-22 09:20] VITALS: BP 122/66; PULSE 74; TEMP 97.4
[2019-01-22] MEDS: PRENATAL VITAMINS W/ FOLIC ACID TABLET (FP) PO SCH (10:28)
--- NOTE | 2019-01-22 13:26 | DS ---
[facility] Detox Discharge Summary Admission Date: 01/19/19 Discharge Date: 01/22/19 - History Present History: Alcohol Dependence, Sedative Dependence Additional Comments: 58 years old male admitted on 01/19/19 for alcohol and benzo withdrawal stabilization feeling better today preferred chemical rehab begin today that he is able to manage the wirhdrawal symptoms at this time aftercare [facility] - Physical Exam Results Vital Signs: Vital Signs Temperature 97.4 F L 01/22/19 09:19 Pulse Rate 74 01/22/19 09:19 Respiratory Rate 16 01/22/19 09:19 Blood Pressure 122/66 01/22/19 09:19 O2 Sat by Pulse Oximetry (%) Pertinent Admission Physical Exam Findings: alcohol and benzo withdrawal sx Laboratory Last Values WBC 6.6 K/mm3 (4.0-10.0) 01/20/19 06:00 RBC 4.45 M/mm3 (4.00-5.60) 01/20/19 06:00 Hgb 13.4 GM/dL (11.7-16.9) 01/20/19 06:00 Hct 40.1 % (35.4-49) 01/20/19 06:00 MCV 90.1 fl (80-96) 01/20/19 06:00 MCH 30.1 pg (25.7-33.7) 01/20/19 06:00 MCHC 33.4 g/dl (32.0-35.9) 01/20/19 06:00 RDW 14.8 % (11.9-15.9) 01/20/19 06:00 Plt Count 271 K/MM3 (134-434) D 01/20/19 06:00 MPV 9.1 fl (7.5-11.1) 01/20/19 06:00 Sodium 140 mmol/L (136-145) 01/20/19 06:00 Potassium 3.9 mmol/L (3.5-5.1) 01/20/19 06:00 Chloride 104 mmol/L (98-107) 01/20/19 06:00 Carbon Dioxide 29 mmol/L (21-32) 01/20/19 06:00 Anion Gap 7 MMOL/L (8-16) L 01/20/19 06:00 BUN 11 mg/dL (7-18) 01/20/19 06:00 Creatinine 1.1 mg/dL (0.55-1.3) 01/20/19 06:00 Creat Clearance w eGFR > 60 (>60) 01/20/19 06:00 Random Glucose 98 mg/dL (74-106) 01/20/19 06:00 Calcium 9.5 mg/dL (8.5-10.1) 01/20/19 06:00 Total Bilirubin 0.4 mg/dL (0.2-1) 01/20/19 06:00 AST 22 U/L (15-37) 01/20/19 06:00 ALT 32 U/L (13-61) 01/20/19 06:00 Alkaline Phosphatase 74 U/L (45-117) 01/20/19 06:00 Total Protein 7.6 g/dl (6.4-8.2) 01/20/19 06:00 Albumin 3.9 g/dl (3.4-5.0) 01/20/19 06:00 RPR Titer Nonreactive (NONREACTIVE) 01/20/19 06:00 lab noted - Treatment Hospital Course: Detox Protocol Followed, Detoxed Safely, Responded well, Discharged Condition Good, Rehab Referral Accepted Patient has Accepted a Rehab Referral to: [facility] - Medication Discharge Medications: Ambulatory Orders Quetiapine Fumarate [Seroquel] 100 mg PO HS #30 tablet 10/26/18 - Diagnosis (1) Alcohol dependence with uncomplicated withdrawal Current Visit: Yes Status: Acute (2) Nicotine dependence Current Visit: Yes Status: Acute Qualifiers: Nicotine product type: cigarettes Substance use status: in withdrawal Qualified Code(s): F17.213 - Nicotine dependence, cigarettes, with withdrawal (3) Substance induced mood disorder Current Visit: Yes Status: Suspected (4) Positive PPD Current Visit: Yes Status: Resolved - AMA Did Patient Leave Against Medical Advice: No
[2019-01-22] MEDS ORDERED: chlordiazePOXIDE HCL 10 MG CAPSULE PO SCH (17:00)
== END 2019-01-22 12:20 | disposition other institution (70) | DRG 774 ==
LOC: YASAS 09:14 → Y3N 12:14
PROVIDERS: ADMIT Surgery; ATTEND Surgery
PROC: HZ2ZZZZ Detoxification Services for Substance Abuse Treatment (ICD-10-PCS; principal; 2019-01-19)
DX: F10.230 Alcohol dependence with withdrawal, uncomplicated (principal); F14.20 Cocaine dependence, uncomplicated; F17.213 Nicotine dependence, cigarettes, with withdrawal; F31.9 Bipolar disorder, unspecified; F19.24 Other psychoactive substance dependence with psychoactive substance-induced mood disorder; R55 Syncope and collapse; R76.11 Nonspecific reaction to tuberculin skin test without active tuberculosis; G47.00 Insomnia, unspecified; R63.4 Abnormal weight loss; Z68.25 Body mass index [BMI] 25.0-25.9, adult; Z59.0 Homelessness
CPT/HCPCS: 36415; 80053; 85027; 86593

== ENCOUNTER 2019-01-22 12:26 | Inpatient (IN) | payer OTHER ==
[2019-01-22] MEDS ORDERED: NICOTINE POLACRILEX 2 MG GUM BUC PRN (13:20)
[2019-01-22] MEDS ORDERED: MAGNESIUM CITRATE 300 ML BOTTLE PO PRN ×2 (13:20→13:28)
[2019-01-22] MEDS ORDERED: ACETAMINOPHEN 325 MG TABLET (FP) PO PRN (13:20)
[2019-01-22] MEDS ORDERED: MAG HYDROX/AL HYDROX/SIMETH 30 ML UNIT-DOSE CUP PO PRN ×2 (13:20→13:28)
[2019-01-22] MEDS ORDERED: LOPERAMIDE HCL 2 MG CAPSULE PO PRN ×2 (13:20→13:28)
[2019-01-22] MEDS ORDERED: MENTHOL/PHENOL 1 EACH UD MM PRN ×2 (13:20→13:28)
[2019-01-22] MEDS ORDERED: P-EPHED 60MG/TRIPROLIDI 2.5MG TABLET PO PRN ×2 (13:20→13:28)
[2019-01-22] MEDS ORDERED: MAGNESIUM HYDROX 2400MG/30ML ORAL SUSPENSION 30 ML CUP PO PRN ×2 (13:20→13:28)
[2019-01-22] MEDS ORDERED: IBUPROFEN 400 MG TABLET (FP) PO PRN (13:20)
[2019-01-22] MEDS ORDERED: guaiFENesin/D-METHORPHAN HB 10 ML UNIT-DOSE CUPS PO PRN ×2 (13:20→13:28)
[2019-01-22] MEDS ORDERED: hydrOXYzine PAMOATE 50 MG CAPSULE (FP) PO PRN (13:20)
[2019-01-22] MEDS ORDERED: CYCLOBENZAPRINE HCL 10 MG TABLET (FP) PO PRN (13:22)
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
--- NOTE | 2019-01-22 13:28 | HP ---
[facility] Rehab Assess/Revision - Admission History Admitted to Rehab from: [facility] Date of Admission to Rehab: 01/22/18 - Vital signs Vital Signs: Vital Signs Period Temp Pulse Resp BP Sys/Gross Pulse Ox Last 24 Hr 97.8 F 71 18 152/78 - Findings Detox History & Physical reviewed: Yes Concur with findings: Yes Comments/Additional Findings: transferred from detox to rehab admission as per protocol Inpatient Rehab Admission - Rehab Decision to Admit Inpatient rehab admission?: Yes - Initial Determination Are CD services needed?: Yes Free of communicable disease: Yes Not in need of hospitalization: Yes - Rehab Admission Criteria Previous failed treatment: Yes Poor recovery environment: Yes Comorbidities: Yes Lacks judgement: No Patient is meeting Inpatient Rehab admission criteria:: Yes
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
[2019-01-22] MEDS: LIDOCAINE 5% TOPICAL PATCH TP SCH (15:39)
[2019-01-22] MEDS: NICOTINE 21 MG/24 HOURS TOPICAL PATCH TD SCH (17:02)
[2019-01-22] MEDS: QUEtiapine FUMARATE 100 MG TABLET (FP) PO SCH (21:19)
[2019-01-22] MEDS: IBUPROFEN 400 MG TABLET (FP) PO PRN (21:19)
[2019-01-22] MEDS: THIAMINE HCL 100 MG TABLET (FP) PO SCH (21:19)
[2019-01-22] MEDS: LIDOCAINE PATCH REMOVAL MC SCH (21:21)
[2019-01-22] MEDS ORDERED: MELATONIN 5 MG TABLETS PO PRN ×2 (22:00)
[2019-01-22] MEDS ORDERED: THIAMINE HCL 100 MG TABLET (FP) PO SCH (22:00)
[2019-01-23] MEDS: LIDOCAINE 5% TOPICAL PATCH TP SCH (09:57)
[2019-01-23] MEDS: PRENATAL VITAMINS W/ FOLIC ACID TABLET (FP) PO SCH (09:57)
[2019-01-23] MEDS: NICOTINE 21 MG/24 HOURS TOPICAL PATCH TD SCH (09:57)
[2019-01-23] MEDS ORDERED: PRENATAL VITAMINS W/ FOLIC ACID TABLET (FP) PO SCH (10:00)
[2019-01-23] MEDS: THIAMINE HCL 100 MG TABLET (FP) PO SCH (21:22)
[2019-01-23] MEDS: QUEtiapine FUMARATE 100 MG TABLET (FP) PO SCH (21:22)
[2019-01-23] MEDS: LIDOCAINE PATCH REMOVAL MC SCH (21:23)
[2019-01-24] MEDS: CYCLOBENZAPRINE HCL 10 MG TABLET (FP) PO PRN ×2 (09:47→21:10)
[2019-01-24] MEDS: PRENATAL VITAMINS W/ FOLIC ACID TABLET (FP) PO SCH (09:47)
[2019-01-24] MEDS: NICOTINE 21 MG/24 HOURS TOPICAL PATCH TD SCH (09:47)
[2019-01-24] MEDS: LIDOCAINE 5% TOPICAL PATCH TP SCH (09:47)
[2019-01-24] MEDS: IBUPROFEN 400 MG TABLET (FP) PO PRN (09:48)
[2019-01-24] MEDS: QUEtiapine FUMARATE 100 MG TABLET (FP) PO SCH (21:10)
[2019-01-24] MEDS: THIAMINE HCL 100 MG TABLET (FP) PO SCH (21:10)
[2019-01-24] MEDS: ACETAMINOPHEN 325 MG TABLET (FP) PO PRN (21:11)
[2019-01-24] MEDS: LIDOCAINE PATCH REMOVAL MC SCH (21:12)
[2019-01-25] MEDS: NICOTINE 21 MG/24 HOURS TOPICAL PATCH TD SCH (10:33)
[2019-01-25] MEDS: LIDOCAINE 5% TOPICAL PATCH TP SCH (10:33)
[2019-01-25] MEDS: PRENATAL VITAMINS W/ FOLIC ACID TABLET (FP) PO SCH (10:33)
[2019-01-25] MEDS: IBUPROFEN 400 MG TABLET (FP) PO PRN ×2 (10:34→21:13)
[2019-01-25] MEDS: QUEtiapine FUMARATE 100 MG TABLET (FP) PO SCH (21:13)
[2019-01-25] MEDS: THIAMINE HCL 100 MG TABLET (FP) PO SCH (21:13)
[2019-01-25] MEDS: LIDOCAINE PATCH REMOVAL MC SCH (21:14)
[2019-01-26] MEDS: LIDOCAINE 5% TOPICAL PATCH TP SCH (10:03)
[2019-01-26] MEDS: PRENATAL VITAMINS W/ FOLIC ACID TABLET (FP) PO SCH (10:03)
[2019-01-26] MEDS: NICOTINE 21 MG/24 HOURS TOPICAL PATCH TD SCH (10:04)
[2019-01-26] MEDS: IBUPROFEN 400 MG TABLET (FP) PO PRN (10:05)
[2019-01-26] MEDS: NICOTINE POLACRILEX 4 MG GUM BUC PRN (10:06)
[2019-01-26] MEDS ORDERED: NAPROXEN 500 MG TABLET (FP) PO ONE (15:00)
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
[2019-01-26] MEDS: LIDOCAINE PATCH REMOVAL MC SCH (21:18)
[2019-01-26] MEDS: QUEtiapine FUMARATE 100 MG TABLET (FP) PO SCH (21:18)
[2019-01-26] MEDS: THIAMINE HCL 100 MG TABLET (FP) PO SCH (21:18)
[2019-01-26] MEDS: NAPROXEN 500 MG TABLET (FP) PO SCH (21:18)
[2019-01-27] MEDS: ACETAMINOPHEN 325 MG TABLET (FP) PO PRN (06:51)
[2019-01-27 06:57] VITALS: BP 146/78; PULSE 70; TEMP 97.8
[2019-01-27] MEDS: NAPROXEN 500 MG TABLET (FP) PO SCH (09:44)
[2019-01-27] MEDS: NICOTINE 21 MG/24 HOURS TOPICAL PATCH TD SCH (09:44)
[2019-01-27] MEDS: PRENATAL VITAMINS W/ FOLIC ACID TABLET (FP) PO SCH (09:44)
[2019-01-27] MEDS: NICOTINE POLACRILEX 4 MG GUM BUC PRN (09:45)
[2019-01-27] MEDS: LIDOCAINE 5% TOPICAL PATCH TP SCH (09:45)
--- NOTE | 2019-01-27 11:30 | PN ---
[facility] Progress Note Note: Patient is discharged today. Script for 30 days of Seroquel 100 mg po HS is electronically transmitted to [facility] at [address] [place] [id number]
--- NOTE | 2019-01-27 12:25 | PN ---
S Progress Note Note: MACHINE FUR CLEANER WAS INFORMED BY NURSE THAT PT IS SIGNING OUT. MACHINE FUR CLEANER SAW PT AT THE NURSING STATION GETTING READY TO LEAVE WHO REPORTS HE GOT A MESSAGE "THERE IS IN THE FAMILY". PT MET WITH HIS COUNSELOR TODAY AND REFERRED TO [facility] FOR CD AFTERCARE PROGRAM. PT REPORTS HE HAS NO PMD BUT UTILIZES [facility] ON [address], [place] WHEN NEEDED. REQUESTED COURTESY RX FOR NAPROSYN. NAPROSYN 500 MG PO BID #14 ELECTRONICALLY SENT TO [facility] FOR HOUSEKEEPER CAREGIVER AFTER DISCHARGE. ALERT O X 3. PT DENIES S/H/I. Home Medications Medication Instructions Recorded Naproxen [Naprosyn -] 500 mg PO BID #14 tablet 01/27/19 Quetiapine Fumarate [Seroquel] 100 mg PO HS #30 tablet 01/27/19 Vital Signs (72 hours) 01/25/19 01/25/19 01/25/19 00:30 03:30 06:48 Temperature 97.6 F Pulse Rate 73 Respiratory 18 18 18 Rate Blood Pressure 122/72 01/26/19 01/26/19 01/26/19 00:30 03:30 06:56 Temperature 97.3 F L Pulse Rate 66 Respiratory 18 18 18 Rate Blood Pressure 126/84 01/27/19 01/27/19 01/27/19 00:30 03:30 06:57 Temperature 97.8 F Pulse Rate 70 Respiratory 18 18 18 Rate Blood Pressure 146/78 NAD MEDICALLY STABLE PLAN:FOLLOW UP WITH CD AFTERCARE RECOMMENDEATION ABOVE. FOLLOW UP WITH PRIMARY CARE AT [facility] WITHIN 1 WEEK AFTER DISCHARGE FOR MEDICAL MANAGEMENT. Home Medications Medication Instructions Recorded Naproxen [Naprosyn -] 500 mg PO BID #14 tablet 01/27/19 Quetiapine Fumarate [Seroquel] 100 mg PO HS #30 tablet 01/27/19
== END 2019-01-27 11:30 | disposition left against medical advice (07) | DRG 770 ==
LOC: YASAS 12:26 → Y5N 12:27
PROVIDERS: ADMIT Neuromusculoskeletal Medicine & OMM; ATTEND Neuromusculoskeletal Medicine & OMM
PROC: HZ42ZZZ Group Counseling for Substance Abuse Treatment, Cognitive-Behavioral (ICD-10-PCS; principal; 2019-01-22)
DX: F10.20 Alcohol dependence, uncomplicated (principal); F13.20 Sedative, hypnotic or anxiolytic dependence, uncomplicated; F14.20 Cocaine dependence, uncomplicated; F17.213 Nicotine dependence, cigarettes, with withdrawal; F19.282 Other psychoactive substance dependence with psychoactive substance-induced sleep disorder; F19.24 Other psychoactive substance dependence with psychoactive substance-induced mood disorder; F39 Unspecified mood [affective] disorder; R76.11 Nonspecific reaction to tuberculin skin test without active tuberculosis; Z59.0 Homelessness
CPT/HCPCS: 36415; 87522

== ENCOUNTER 2019-03-02 09:50 | Inpatient (IN) | payer OTHER ==
[2019-03-02 11:01] VITALS: BMI 28.1
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
[2019-03-02] MEDS ORDERED: MELATONIN 5 MG TABLETS PO PRN (12:50)
[2019-03-02] MEDS ORDERED: MENTHOL/PHENOL 1 EACH UD MM PRN (12:50)
[2019-03-02] MEDS ORDERED: MAGNESIUM CITRATE 300 ML BOTTLE PO PRN (12:50)
[2019-03-02] MEDS ORDERED: chlordiazePOXIDE HCL 25 MG CAPSULE PO PRN (12:50)
[2019-03-02] MEDS ORDERED: MAGNESIUM HYDROX 2400MG/30ML ORAL SUSPENSION 30 ML CUP PO PRN (12:50)
[2019-03-02] MEDS ORDERED: METHOCARBAMOL 500 MG TABLET PO PRN (12:50)
[2019-03-02] MEDS ORDERED: ACETAMINOPHEN 325 MG TABLET (FP) PO PRN ×2 (12:50)
[2019-03-02] MEDS ORDERED: BISMUTH SUBSALICYLATE 262 MG/15 ML BTL PO PRN (12:50)
[2019-03-02] MEDS ORDERED: hydrOXYzine PAMOATE 25 MG CAPSULE (FP) PO PRN (12:50)
[2019-03-02] MEDS ORDERED: MAG HYDROX/AL HYDROX/SIMETH 30 ML UNIT-DOSE CUP PO PRN (12:50)
[2019-03-02 17:09] LABS: HEMATOCRIT 38.1 % (35.4-49); HEMOGLOBIN 12.6 GM/dL (11.7-16.9); MCH 30.3 pg (25.7-33.7); MEAN CELL VOLUME 91.8 fl (80-96); MEAN PLT VOLUME 9.6 fl (7.5-11.1); PLATELET COUNT 180 K/MM3 (134-434); RBC 4.15 M/mm3 (4.00-5.60); RDW 15.3 % (11.9-15.9); WHITE BLOOD COUNT 5.6 K/mm3 (4.0-10.0)
[2019-03-02 17:18] LABS: ALBUMIN 3.5 g/dl (3.4-5.0); ALK PHOS 103 U/L (45-117); ANION GAP 5 MMOL/L (8-16); BILIRUBIN,TOTAL 0.4 mg/dL (0.2-1); BLOOD UREA NITROGEN 22 mg/dL (7-18); CALCIUM 8.6 mg/dL (8.5-10.1); CHLORIDE 106 mmol/L (98-107); CO2 27 mmol/L (21-32); GLUCOSE,RANDOM 94 mg/dL (74-106); POTASSIUM 4.4 mmol/L (3.5-5.1); SGOT/AST 28 U/L (15-37); SGPT/ALT 39 U/L (13-61); SODIUM 138 mmol/L (136-145); TOT PROT 7.1 g/dl (6.4-8.2)
[2019-03-02] MEDS: chlordiazePOXIDE HCL 25 MG CAPSULE PO SCH ×2 (18:17→22:29)
[2019-03-02] MEDS: THIAMINE HCL 100 MG TABLET (FP) PO SCH (22:28)
[2019-03-02] MEDS: QUEtiapine FUMARATE 100 MG TABLET (FP) PO SCH (22:28)
[2019-03-03] MEDS: chlordiazePOXIDE HCL 25 MG CAPSULE PO SCH ×4 (06:09→22:29)
[2019-03-03] MEDS: PRENATAL VITAMINS W/ FOLIC ACID TABLET (FP) PO SCH (10:14)
[2019-03-03] MEDS: IBUPROFEN 400 MG TABLET (FP) PO PRN (10:17)
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
--- NOTE | 2019-03-03 11:24 | PN ---
S CIWA - CIWA Score Nausea/Vomitin-No Nausea/No Vomiting Muscle Tremors: 4-Moderate,w/Arms Extend Anxiety: 3 Agitation: 3 Paroxysmal Sweats: 3 Orientation: 0-Oriented Tacttile Disturbances: 0-None Auditory Disturbances: 0-None Visual Disturbances: 0-None Headache: 0-None Present CIWA-Ar Total Score: 13 S Progress Note (SOAP) Subjective: low back pain sweats agitation body aches Objective: 03/03/19 11:22 Vital Signs Temperature 97.5 F L 03/03/19 09:55 Pulse Rate 87 03/03/19 09:55 Respiratory Rate 18 03/03/19 09:55 Blood Pressure 121/73 03/03/19 09:55 O2 Sat by Pulse Oximetry (%) Laboratory Tests 03/02/19 03/02/19 03/02/19 12:45 12:45 12:45 WBC 5.6 RBC 4.15 Hgb 12.6 Hct 38.1 MCV 91.8 MCH 30.3 MCHC 33.0 RDW 15.3 Plt Count 180 D MPV 9.6 Sodium 138 Potassium 4.4 Chloride 106 Carbon Dioxide 27 Anion Gap 5 L BUN 22 H Creatinine 1.0 Creat Clearance w eGFR 77.30 Random Glucose 94 Calcium 8.6 Total Bilirubin 0.4 AST 28 ALT 39 Alkaline Phosphatase 103 Total Protein 7.1 Albumin 3.5 RPR Titer Nonreactive aaox3 ambulating no acute distress Assessment: 03/03/19 11:23 withdrawal sx Plan: continue detox increase fluids lidocaine patch motrin prn baclofen tid
[2019-03-03] MEDS: BACLOFEN 10 MG TABLET (FP) PO SCH ×2 (14:11→21:15)
[2019-03-03] MEDS: LIDOCAINE 5% TOPICAL PATCH TP SCH (14:12)
[2019-03-03] MEDS ORDERED: hydrOXYzine HCL 25 MG TABLET (FP) PO PRN (18:54)
[2019-03-03] MEDS: THIAMINE HCL 100 MG TABLET (FP) PO SCH (21:13)
[2019-03-03] MEDS: QUEtiapine FUMARATE 100 MG TABLET (FP) PO SCH (21:14)
[2019-03-03] MEDS ORDERED: LIDOCAINE PATCH REMOVAL MC SCH (22:00)
[2019-03-04] MEDS: BACLOFEN 10 MG TABLET (FP) PO SCH ×2 (05:55→13:14)
[2019-03-04] MEDS: chlordiazePOXIDE HCL 25 MG CAPSULE PO SCH ×2 (05:55→10:15)
[2019-03-04] MEDS: PRENATAL VITAMINS W/ FOLIC ACID TABLET (FP) PO SCH (10:09)
[2019-03-04] MEDS: IBUPROFEN 400 MG TABLET (FP) PO PRN (10:10)
[2019-03-04] MEDS: LIDOCAINE 5% TOPICAL PATCH TP SCH (10:16)
[2019-03-04] MEDS ORDERED: IBUPROFEN 400 MG TABLET (FP) PO PRN (10:53)
--- NOTE | 2019-03-04 10:56 | PN ---
S CIWA - CIWA Score Nausea/Vomitin-No Nausea/No Vomiting Muscle Tremors: 3 Anxiety: 3 Agitation: 3 Paroxysmal Sweats: 3 Orientation: 0-Oriented Tacttile Disturbances: 0-None Auditory Disturbances: 0-None Visual Disturbances: 0-None Headache: 0-None Present CIWA-Ar Total Score: 12 BHS Progress Note (SOAP) Subjective: back/leg pain.. I think my siatica is acting up sweats interrupted sleep agitation Objective: 03/04/19 10:55 Vital Signs Temperature 98.3 F 03/04/19 09:15 Pulse Rate 85 03/04/19 09:15 Respiratory Rate 18 03/04/19 09:15 Blood Pressure 130/75 03/04/19 09:15 O2 Sat by Pulse Oximetry (%) Laboratory Tests 03/02/19 03/02/19 03/02/19 12:45 12:45 12:45 WBC 5.6 RBC 4.15 Hgb 12.6 Hct 38.1 MCV 91.8 MCH 30.3 MCHC 33.0 RDW 15.3 Plt Count 180 D MPV 9.6 Sodium 138 Potassium 4.4 Chloride 106 Carbon Dioxide 27 Anion Gap 5 L BUN 22 H Creatinine 1.0 Creat Clearance w eGFR 77.30 Random Glucose 94 Calcium 8.6 Total Bilirubin 0.4 AST 28 ALT 39 Alkaline Phosphatase 103 Total Protein 7.1 Albumin 3.5 RPR Titer Nonreactive aaox3 ambulating no acute distress Assessment: 03/04/19 10:59 withdrawal sx Plan: continue detox increase fluids motrin 800mg tid robaxin prn lidocaine patch analgesic balm
[2019-03-04 13:51] VITALS: BP 134/79; PULSE 81; TEMP 97.5
--- NOTE | 2019-03-04 14:48 | PN ---
[facility] Progress Note Note: Pt was argumentative to staff and account underwriter; pt was complaining about the need to go to hospital for his sciatica. Pt was offered all medication to assist with his discomfort. Pt is AAOX3, ambulating with no assisting devices, ambulating with no difficulty. Pt refused all the care. Pt was offered again medications offered still refused. Pt will be administrative discharged and pt can see his PCP or go to the ED if pt wants.
--- NOTE | 2019-03-04 15:28 | DS ---
[facility] Summary Admission Date: 03/02/19 - History Present History: Alcohol Dependence, Cocaine Dependence, Opioid Dependence - Physical Exam Results Vital Signs: Vital Signs Temperature 97.5 F L 03/04/19 13:50 Pulse Rate 81 03/04/19 13:50 Respiratory Rate 18 03/04/19 13:50 Blood Pressure 134/79 03/04/19 13:50 O2 Sat by Pulse Oximetry (%) - Medication Discharge Medications: Ambulatory Orders Quetiapine Fumarate [Seroquel] 100 mg PO HS #30 tablet 01/27/19 - AMA Did Patient Leave Against Medical Advice: No (Involuntary discharge)
[2019-03-04] MEDS ORDERED: chlordiazePOXIDE HCL 10 MG CAPSULE PO PRN (17:00)
[2019-03-04] MEDS ORDERED: chlordiazePOXIDE HCL 10 MG CAPSULE PO SCH (17:00)
[2019-03-04] MEDS ORDERED: METHYL SALICYLATE/MENTHOL OINT 30 GM TUBE TP SCH (22:00)
[2019-03-05] MEDS ORDERED: chlordiazePOXIDE HCL 10 MG CAPSULE PO SCH (17:00)
== END 2019-03-04 15:02 | disposition home or self-care (01) | DRG 774 ==
LOC: YASAS 09:50 → Y6N 13:29
PROVIDERS: ADMIT Surgery; ATTEND Surgery
PROC: HZ2ZZZZ Detoxification Services for Substance Abuse Treatment (ICD-10-PCS; principal; 2019-03-02)
DX: F10.230 Alcohol dependence with withdrawal, uncomplicated (principal); F13.230 Sedative, hypnotic or anxiolytic dependence with withdrawal, uncomplicated; F14.20 Cocaine dependence, uncomplicated; F17.213 Nicotine dependence, cigarettes, with withdrawal; F39 Unspecified mood [affective] disorder; F31.9 Bipolar disorder, unspecified; F19.24 Other psychoactive substance dependence with psychoactive substance-induced mood disorder; F19.282 Other psychoactive substance dependence with psychoactive substance-induced sleep disorder; F91.8 Other conduct disorders; R76.11 Nonspecific reaction to tuberculin skin test without active tuberculosis; G47.00 Insomnia, unspecified; Z59.0 Homelessness
CPT/HCPCS: 36415; 80053; 85027; 86593; J0475

== ENCOUNTER 2019-03-23 08:42 | Inpatient (IN) | payer OTHER ==
[2019-03-23 09:20] VITALS: BMI 28.4
--- NOTE | 2019-03-23 10:10 | HP ---
CIWA Score Nausea/Vomitin Muscle Tremors: 3 Anxiety: 3 Agitation: 2 Paroxysmal Sweats: 1-Minimal Palms Moist Orientation: 0-Oriented Tacttile Disturbances: 1-Very Mild Itch/Numbness Auditory Disturbances: 1-Very Mild Visual Disturbances: 0-None Headache: 2-Mild CIWA-Ar Total Score: 15 - Admission Criteria OASAS Guidelines: Admission for Medically Managed Detox: Requires at least one of the followin. CIWA greater than 12 2. Seizures within the past 24 hours 3. Delirium tremens within the past 24 hours 4. Hallucinations within the past 24 hours 5. Acute intervention needed for co occurring medical disorder 6. Acute intervention needed for co occurring psychiatric disorder 7. Severe withdrawal that cannot be handled at a lower level of care (continued vomiting, continued diarrhea, abnormal vital signs) requiring intravenous medication and/or fluids 8. Admission ROS S - HPI Chief Complaint: i need help to stop drinking alcohol,cocaine Allergies/Adverse Reactions: Allergies Allergy/AdvReac Type Severity Reaction Status Date / Time No Known Allergies Allergy Verified 03/23/19 09:13 History of Present Illness: this 58 years old with alcohol and cocaine dependence,withdrawal symptom, multiple admissions to detox but relapsing, last detox 03/02/19 to 03/04/19 not completed hast to leave for personal emergency nicotine dependence 1/2 pack/day,does not need nicotine replacement weight loss fx of left mandible has wiring 1 year ago depression and sleeping problem on seroquel 100 mgs hs plan to go rehab - Ebola screening Have you traveled outside of the country in the last 21 days: No Have you had contact with anyone from an Ebola affected area: No Do you have a fever: No - Review of Systems Constitutional: Loss of Appetite, Malaise, Night Sweats, Changes in sleep, Weakness, Unintentional Wgt. Loss EENT: reports: Nose Congestion, Other (history of fx of left mandible,) Respiratory: reports: No Symptoms reported Cardiac: reports: No Symptoms Reported GI: reports: Nausea, Poor Appetite, Vomiting, Abdominal cramping : reports: No Symptoms Reported Musculoskeletal: reports: Back Pain, Muscle Pain Integumentary: reports: Dryness Neuro: reports: Headache, Tremors Endocrine: reports: No Symptoms Reported Hematology: reports: No Symptoms Reported Psychiatric: reports: No Sypmtoms Reported, Judgement Intact, Mood/Affect Appropiate, Orientated x3, Depressed, other (insomnia) Other Systems: Reviewed and Negative Patient History - Patient Medical History Hx Anemia: No Hx Asthma: No Hx Chronic Obstructive Pulmonary Disease (COPD): No Hx Cancer: No Hx Cardiac Disorders: No Hx Congestive Heart Failure: No Hx Hypertension: No Hx Hypercholesterolemia: No Hx Pacemaker: No HX Cerebrovascular Accident: No Hx Seizures: No Hx Dementia: No Hx Diabetes: No Hx Gastrointestinal Disorders: No Hx Liver Disease: No Hx Genitourinary Disorders: No Hx Sexually Transmitted Disorders: No Hx Renal Disease (ESRD): No Hx Thyroid Disease: No Hx Human Immunodeficiency Virus (HIV): No (last 11/11 negative) Hx Hepatitis C: No Hx Depression: Yes Hx Suicide Attempt: No Hx Bipolar Disorder: Yes Hx Schizophrenia: No Other Medical History: no suicidal,no homicidal - Patient Surgical History Past Surgical History: Yes Hx Neurologic Surgery: No Hx Cataract Extraction: No Hx Cardiac Surgery: No Hx Lung Surgery: No Hx Breast Surgery: No Hx Breast Biopsy: No Hx Abdominal Surgery: No Hx Appendectomy: No Hx Cholecystectomy: No Hx Genitourinary Surgery: No Hx Section: No Hx Orthopedic Surgery: No Other Surgical History: fx, left mandible in 2017,had wiring Anesthesia Reaction: No - PPD History Previous Implant?: Yes Documented Results: Positive w/proof Date: 06/23/18 Results: chest xray neg PPD to be Administered?: No - Smoking Cessation Smoking history: Current every day smoker Have you smoked in the past 12 months: Yes Aproximately how many cigarettes per day: 10 Cigars Per Day: 0 Hx Chewing Tobacco Use: No Initiated information on smoking cessation: Yes 'Breaking Loose' booklet given: 03/23/19 - Substance & Tx. History Hx Alcohol Use: Yes Hx Substance Use: Yes Substance Use Type: Alcohol, Cocaine Hx Substance Use Treatment: Yes ([facility]03/02/19 to 03/04/19 not completed has persoal emergency) - Substances abused Alcohol Substance route: Oral Frequency: Daily Amount used: 3 pt. liquor ( vodka), 7 beers ( 16 oz) Age of first use: 38 Date of last use: 03/22/19 Cocaine Substance route: Inhalation Frequency: Daily Amount used: $300 Age of first use: 32 Date of last use: 03/22/19 Family Disease History - Family Disease History Family Disease History: Other: Father (, cancer ), Mother (, homicide ) Admission Physical Exam [facility] - Vital Signs Vital Signs: Vital Signs - 24 hr 03/23/19 09:14 Temperature 98.4 F Pulse Rate 64 Respiratory 18 Rate Blood Pressure 145/97 - Physical General Appearance: Yes: Moderate Distress, Alcohol on Breath, Tremorous, Sweating, Anxious HEENTM: Yes: Normal ENT Inspection, MELINDA, Pharynx Normal, Other (fx of left madible loss of upper front teeth) Respiratory: Yes: Lungs Clear, Normal Breath Sounds, No Respiratory Distress Neck: Yes: Within Normal Limits, Supple, Trachea in good position Breast: Yes: Within Normal Limits Cardiology: Yes: Within Normal Limits, Regular Rhythm, Regular Rate, S1, S2 Abdominal: Yes: Within Normal Limits, Normal Bowel Sounds, Non Tender, Flat, Soft Back: Yes: Muscle Spasm Musculoskeletal: Yes: Back pain, Muscle Pain Extremities: Yes: Tremors Neurological: Yes: commodity broker II-XII NML intact, Fully Oriented, Alert, Motor Strength 5/5 Integumentary: Yes: Dry Lymphatic: Yes: Within Normal Limits - Diagnostic (1) Alcohol dependence with uncomplicated withdrawal Current Visit: No Status: Acute (2) Cocaine dependence Current Visit: No Status: Acute Qualifiers: Substance use status: uncomplicated Qualified Code(s): F14.20 - Cocaine dependence, uncomplicated (3) Syncope Current Visit: No Status: Acute (4) Tinea pedis Current Visit: No Status: Acute Qualifiers: Laterality: bilateral Qualified Code(s): B35.3 - Tinea pedis (5) Nicotine dependence Current Visit: No Status: Chronic Qualifiers: Nicotine product type: cigarettes Substance use status: in withdrawal Qualified Code(s): F17.213 - Nicotine dependence, cigarettes, with withdrawal Cleared for Admission [facility] - Detox or Rehab [facility] Level of Care: Medically Managed Detox Regimen/Protocol: Librium Breathalyzer - Breathalyzer Breathalyzer: 0 Urine Drug Screen - Test Device Lot number: [id number] Expiration date: 10/24/20 - Control Is test valid?: Yes - Results Drug screen NEGATIVE: No Urine drug screen results: FREDDY-Cocaine, BZO-Benzodiazepines Inpatient Rehab Admission - Rehab Decision to Admit Inpatient rehab admission?: No
[2019-03-23] MEDS ORDERED: MAGNESIUM CITRATE 300 ML BOTTLE PO PRN (10:24)
[2019-03-23] MEDS ORDERED: hydrOXYzine PAMOATE 25 MG CAPSULE (FP) PO PRN (10:24)
[2019-03-23] MEDS ORDERED: MENTHOL/PHENOL 1 EACH UD MM PRN (10:24)
[2019-03-23] MEDS ORDERED: BISMUTH SUBSALICYLATE 262 MG/15 ML BTL PO PRN (10:24)
[2019-03-23] MEDS ORDERED: ACETAMINOPHEN 325 MG TABLET (FP) PO PRN ×2 (10:24)
[2019-03-23] MEDS ORDERED: chlordiazePOXIDE HCL 25 MG CAPSULE PO PRN (10:24)
[2019-03-23] MEDS ORDERED: MAGNESIUM HYDROX 2400MG/30ML ORAL SUSPENSION 30 ML CUP PO PRN (10:24)
[2019-03-23] MEDS ORDERED: METHOCARBAMOL 500 MG TABLET PO PRN (10:24)
[2019-03-23] MEDS ORDERED: MELATONIN 5 MG TABLETS PO PRN (10:24)
[2019-03-23] MEDS ORDERED: MAG HYDROX/AL HYDROX/SIMETH 30 ML UNIT-DOSE CUP PO PRN (10:24)
[2019-03-23 12:31] LABS: HEMATOCRIT 37.8 % (35.4-49); HEMOGLOBIN 12.9 GM/dL (11.7-16.9); MCH 30.8 pg (25.7-33.7); MEAN CELL VOLUME 90.4 fl (80-96); MEAN PLT VOLUME 9.2 fl (7.5-11.1); PLATELET COUNT 196 K/MM3 (134-434); RBC 4.19 M/mm3 (4.00-5.60); RDW 14.7 % (11.9-15.9); WHITE BLOOD COUNT 4.1 K/mm3 (4.0-10.0)
[2019-03-23 12:32] LABS: ALBUMIN 3.6 g/dl (3.4-5.0); ALK PHOS 74 U/L (45-117); ANION GAP 3 MMOL/L (8-16); BILIRUBIN,TOTAL 0.3 mg/dL (0.2-1); BLOOD UREA NITROGEN 17 mg/dL (7-18); CALCIUM 9.3 mg/dL (8.5-10.1); CHLORIDE 105 mmol/L (98-107); CO2 31 mmol/L (21-32); CREATININE 1.1 mg/dL (0.55-1.3); GLUCOSE,RANDOM 82 mg/dL (74-106); POTASSIUM 4.5 mmol/L (3.5-5.1); SGOT/AST 21 U/L (15-37); SGPT/ALT 28 U/L (13-61); SODIUM 139 mmol/L (136-145); TOT PROT 6.9 g/dl (6.4-8.2)
[2019-03-23] MEDS: chlordiazePOXIDE HCL 25 MG CAPSULE PO SCH ×2 (18:06→22:02)
[2019-03-23] MEDS: QUEtiapine FUMARATE 100 MG TABLET (FP) PO SCH (22:02)
[2019-03-23] MEDS: THIAMINE HCL 100 MG TABLET (FP) PO SCH (22:03)
[2019-03-24] MEDS: chlordiazePOXIDE HCL 25 MG CAPSULE PO SCH ×4 (06:15→22:16)
[2019-03-24] MEDS: PRENATAL VITAMINS W/ FOLIC ACID TABLET (FP) PO SCH (10:10)
[2019-03-24] MEDS: IBUPROFEN 400 MG TABLET (FP) PO PRN (10:13)
--- NOTE | 2019-03-24 14:32 | CONSULT ---
[facility] Psychiatric Consult - Data Date of interview: 03/24/19 Admission source: [facility] Identifying data: Another admission to [facility] for this 58 y/o AA male who presented, at [facility], in ETOH withdrawal and requested detoxification treatment ( alcohol, nicotine, cocaine). Examined at [address] [place] [address]. Patient is single without dependents, homeless, unemployed and supported on odd jobs. Substance Abuse History: Confirmed by the patient in this interview. Details in current [facility] report : Smoking history: Current every day smoker. Have you smoked in the past 12 months: Yes. Aproximately how many cigarettes per day: 10. Cigars Per Day: 0. Hx Chewing Tobacco Use: No. Initiated information on smoking cessation: Yes. 'Breaking Loose' booklet given: 03/23/19. - Substance & Tx. History. Hx Alcohol Use: Yes. Hx Substance Use: Yes. Substance Use Type : Alcohol, Cocaine. Hx Substance Use Treatment: Yes ([facility] to 03/04/19 not completed has persoal emergency). - Substances abused. Alcohol. Substance route: Oral. Frequency: Daily. Amount used: 3 pt. liquor ( vodka), 7 beers ( 16 oz). Age of first use: 38. Date of last use: 03/22/19. Cocaine. Substance route: Inhalation. Frequency: Daily. Amount used: $300. Age of first use: 32. Date of last use: 03/22/19 Medical History: History of fracture of mandible (2011). Psychiatric History: Patient denies history of psychiatric hospitalizations. No psychiatric OPD care. Mr Vu requests seroquel to address chronic insomnia. Denies history of suicide attempts. Physical/Sexual Abuse/Trauma History: Patient denies. Additional Comment: Urine drug screen results: FREDDY-Cocaine, BZO- Benzodiazepines. Noted. Mental Status Exam - Mental Status Exam Alert and Oriented to: Time, Place, Person Cognitive Function: Good Patient Appearance: Well Groomed Mood: Nervous, Withdrawn Affect: Appropriate, Mood Congruent, Normal Range Patient Behavior: Fatigued, Cooperative Speech Pattern: Clear, Appropriate Voice Loudness: Normal Thought Process: Goal Oriented Thought Disorder: Not Present Hallucinations: Denies Suicidal Ideation: Denies Homicidal Ideation: Denies Insight/Judgement: Poor Sleep: Poorly, Difficulty falling asleep Appetite: Good Muscle strength/Tone: Normal Gait/Station: Normal Psychiatric Findings - Problem List ([place] 1, 2,3) (1) Alcohol dependence with uncomplicated withdrawal Current Visit: Yes Status: Acute (2) Nicotine dependence Current Visit: Yes Status: Chronic Qualifiers: Nicotine product type: cigarettes Substance use status: in withdrawal Qualified Code(s): F17.213 - Nicotine dependence, cigarettes, with withdrawal (3) Cocaine dependence Current Visit: Yes Status: Chronic Qualifiers: Substance use status: uncomplicated Qualified Code(s): F14.20 - Cocaine dependence, uncomplicated (4) Substance induced mood disorder Current Visit: Yes Status: Chronic (5) Insomnia Current Visit: Yes Status: Chronic - Initial Treatment Plan Initial Treatment Plan: Psychoeducation. Sleep hygiene. Detoxification. Seroquel 100 mg po hs. Side effects/benefits discussed with patient. Consent ( verbal) given to MD. Matthew.
--- NOTE | 2019-03-24 15:46 | PN ---
[facility] CIWA - CIWA Score Nausea/Vomitin-Mild Nausea/No Vomiting Muscle Tremors: 3 Anxiety: 2 Agitation: 2 Paroxysmal Sweats: 1-Minimal Palms Moist Orientation: 1-Uncertain about Date Tacttile Disturbances: 0-None Auditory Disturbances: 0-None Visual Disturbances: 0-None Headache: 1-Very Mild CIWA-Ar Total Score: 11 S Progress Note (SOAP) Subjective: doing well with librium protocol feeling tired resting in bed Objective: 03/24/19 15:47 Vital Signs Temperature 97.9 F 03/24/19 13:18 Pulse Rate 60 03/24/19 13:18 Respiratory Rate 18 03/24/19 13:18 Blood Pressure 110/63 03/24/19 13:18 O2 Sat by Pulse Oximetry (%) Laboratory Last Values WBC 4.1 K/mm3 (4.0-10.0) 03/23/19 10:15 RBC 4.19 M/mm3 (4.00-5.60) 03/23/19 10:15 Hgb 12.9 GM/dL (11.7-16.9) 03/23/19 10:15 Hct 37.8 % (35.4-49) 03/23/19 10:15 MCV 90.4 fl (80-96) 03/23/19 10:15 MCH 30.8 pg (25.7-33.7) 03/23/19 10:15 MCHC 34.0 g/dl (32.0-35.9) 03/23/19 10:15 RDW 14.7 % (11.9-15.9) 03/23/19 10:15 Plt Count 196 K/MM3 (134-434) 03/23/19 10:15 MPV 9.2 fl (7.5-11.1) 03/23/19 10:15 Sodium 139 mmol/L (136-145) 03/23/19 10:15 Potassium 4.5 mmol/L (3.5-5.1) 03/23/19 10:15 Chloride 105 mmol/L (98-107) 03/23/19 10:15 Carbon Dioxide 31 mmol/L (21-32) 03/23/19 10:15 Anion Gap 3 MMOL/L (8-16) L 03/23/19 10:15 BUN 17 mg/dL (7-18) 03/23/19 10:15 Creatinine 1.1 mg/dL (0.55-1.3) 03/23/19 10:15 Creat Clearance w eGFR 69.24 (>60) 03/23/19 10:15 Random Glucose 82 mg/dL (74-106) 03/23/19 10:15 Calcium 9.3 mg/dL (8.5-10.1) 03/23/19 10:15 Total Bilirubin 0.3 mg/dL (0.2-1) 03/23/19 10:15 AST 21 U/L (15-37) 03/23/19 10:15 ALT 28 U/L (13-61) 03/23/19 10:15 Alkaline Phosphatase 74 U/L (45-117) 03/23/19 10:15 Total Protein 6.9 g/dl (6.4-8.2) 03/23/19 10:15 Albumin 3.6 g/dl (3.4-5.0) 03/23/19 10:15 RPR Titer Nonreactive (NONREACTIVE) 03/23/19 10:15 lab noted Assessment: 03/24/19 15:47 alcohol withdrawal sx Plan: continue detox
[2019-03-24] MEDS: QUEtiapine FUMARATE 100 MG TABLET (FP) PO SCH (22:16)
[2019-03-24] MEDS: THIAMINE HCL 100 MG TABLET (FP) PO SCH (22:16)
[2019-03-25] MEDS: chlordiazePOXIDE HCL 25 MG CAPSULE PO SCH ×2 (06:02→10:09)
[2019-03-25] MEDS: PRENATAL VITAMINS W/ FOLIC ACID TABLET (FP) PO SCH (10:09)
[2019-03-25] MEDS: IBUPROFEN 400 MG TABLET (FP) PO PRN (10:09)
--- NOTE | 2019-03-25 10:45 | PN ---
S CIWA - CIWA Score Nausea/Vomitin-Mild Nausea/No Vomiting Muscle Tremors: 2 Anxiety: 1-Mildly Anxious Agitation: 2 Paroxysmal Sweats: 1-Minimal Palms Moist Orientation: 1-Uncertain about Date Tacttile Disturbances: 0-None Auditory Disturbances: 0-None Visual Disturbances: 0-None Headache: 1-Very Mild CIWA-Ar Total Score: 9 BHS Progress Note (SOAP) Subjective: feeling better social with peers in day room discuss aftercare with staff Objective: 03/25/19 10:44 Vital Signs Temperature 97.0 F L 03/25/19 09:26 Pulse Rate 91 H 03/25/19 09:26 Respiratory Rate 18 03/25/19 09:26 Blood Pressure 127/80 03/25/19 09:26 O2 Sat by Pulse Oximetry (%) Laboratory Last Values WBC 4.1 K/mm3 (4.0-10.0) 03/23/19 10:15 RBC 4.19 M/mm3 (4.00-5.60) 03/23/19 10:15 Hgb 12.9 GM/dL (11.7-16.9) 03/23/19 10:15 Hct 37.8 % (35.4-49) 03/23/19 10:15 MCV 90.4 fl (80-96) 03/23/19 10:15 MCH 30.8 pg (25.7-33.7) 03/23/19 10:15 MCHC 34.0 g/dl (32.0-35.9) 03/23/19 10:15 RDW 14.7 % (11.9-15.9) 03/23/19 10:15 Plt Count 196 K/MM3 (134-434) 03/23/19 10:15 MPV 9.2 fl (7.5-11.1) 03/23/19 10:15 Sodium 139 mmol/L (136-145) 03/23/19 10:15 Potassium 4.5 mmol/L (3.5-5.1) 03/23/19 10:15 Chloride 105 mmol/L (98-107) 03/23/19 10:15 Carbon Dioxide 31 mmol/L (21-32) 03/23/19 10:15 Anion Gap 3 MMOL/L (8-16) L 03/23/19 10:15 BUN 17 mg/dL (7-18) 03/23/19 10:15 Creatinine 1.1 mg/dL (0.55-1.3) 03/23/19 10:15 Creat Clearance w eGFR 69.24 (>60) 03/23/19 10:15 Random Glucose 82 mg/dL (74-106) 03/23/19 10:15 Calcium 9.3 mg/dL (8.5-10.1) 03/23/19 10:15 Total Bilirubin 0.3 mg/dL (0.2-1) 03/23/19 10:15 AST 21 U/L (15-37) 03/23/19 10:15 ALT 28 U/L (13-61) 03/23/19 10:15 Alkaline Phosphatase 74 U/L (45-117) 03/23/19 10:15 Total Protein 6.9 g/dl (6.4-8.2) 03/23/19 10:15 Albumin 3.6 g/dl (3.4-5.0) 03/23/19 10:15 RPR Titer Nonreactive (NONREACTIVE) 03/23/19 10:15 lab noted Assessment: 03/25/19 10:44 withdrawal sx Plan: continue detox
[2019-03-25] MEDS ORDERED: chlordiazePOXIDE HCL 10 MG CAPSULE PO PRN (17:00)
[2019-03-25] MEDS: chlordiazePOXIDE HCL 10 MG CAPSULE PO SCH ×2 (17:07→22:18)
[2019-03-25] MEDS: QUEtiapine FUMARATE 100 MG TABLET (FP) PO SCH (22:18)
[2019-03-25] MEDS: THIAMINE HCL 100 MG TABLET (FP) PO SCH (22:18)
[2019-03-26] MEDS: chlordiazePOXIDE HCL 10 MG CAPSULE PO SCH ×3 (06:06→17:18)
[2019-03-26] MEDS: IBUPROFEN 400 MG TABLET (FP) PO PRN (08:57)
[2019-03-26] MEDS: PRENATAL VITAMINS W/ FOLIC ACID TABLET (FP) PO SCH (10:22)
--- NOTE | 2019-03-26 14:06 | PN ---
S CIWA - CIWA Score Nausea/Vomitin-No Nausea/No Vomiting Muscle Tremors: 2 Anxiety: 2 Agitation: 2 Paroxysmal Sweats: No Perspiration Orientation: 0-Oriented Tacttile Disturbances: 0-None Auditory Disturbances: 0-None Visual Disturbances: 0-None Headache: 0-None Present CIWA-Ar Total Score: 6 BHS Progress Note (SOAP) Subjective: feeling better less tremor sleep better at night well rested more energy social with peers and staff Objective: 03/26/19 14:22 Vital Signs Temperature 96.7 F L 03/26/19 09:16 Pulse Rate 87 03/26/19 09:16 Respiratory Rate 18 03/26/19 09:16 Blood Pressure 132/87 03/26/19 09:16 O2 Sat by Pulse Oximetry (%) Laboratory Last Values WBC 4.1 K/mm3 (4.0-10.0) 03/23/19 10:15 RBC 4.19 M/mm3 (4.00-5.60) 03/23/19 10:15 Hgb 12.9 GM/dL (11.7-16.9) 03/23/19 10:15 Hct 37.8 % (35.4-49) 03/23/19 10:15 MCV 90.4 fl (80-96) 03/23/19 10:15 MCH 30.8 pg (25.7-33.7) 03/23/19 10:15 MCHC 34.0 g/dl (32.0-35.9) 03/23/19 10:15 RDW 14.7 % (11.9-15.9) 03/23/19 10:15 Plt Count 196 K/MM3 (134-434) 03/23/19 10:15 MPV 9.2 fl (7.5-11.1) 03/23/19 10:15 Sodium 139 mmol/L (136-145) 03/23/19 10:15 Potassium 4.5 mmol/L (3.5-5.1) 03/23/19 10:15 Chloride 105 mmol/L (98-107) 03/23/19 10:15 Carbon Dioxide 31 mmol/L (21-32) 03/23/19 10:15 Anion Gap 3 MMOL/L (8-16) L 03/23/19 10:15 BUN 17 mg/dL (7-18) 03/23/19 10:15 Creatinine 1.1 mg/dL (0.55-1.3) 03/23/19 10:15 Creat Clearance w eGFR 69.24 (>60) 03/23/19 10:15 Random Glucose 82 mg/dL (74-106) 03/23/19 10:15 Calcium 9.3 mg/dL (8.5-10.1) 03/23/19 10:15 Total Bilirubin 0.3 mg/dL (0.2-1) 03/23/19 10:15 AST 21 U/L (15-37) 03/23/19 10:15 ALT 28 U/L (13-61) 03/23/19 10:15 Alkaline Phosphatase 74 U/L (45-117) 03/23/19 10:15 Total Protein 6.9 g/dl (6.4-8.2) 03/23/19 10:15 Albumin 3.6 g/dl (3.4-5.0) 03/23/19 10:15 RPR Titer Nonreactive (NONREACTIVE) 03/23/19 10:15 lab noted Assessment: 03/26/19 14:22 mild alcohol withdrawal sx Plan: continue detox
[2019-03-26] MEDS: THIAMINE HCL 100 MG TABLET (FP) PO SCH (21:09)
[2019-03-26] MEDS: QUEtiapine FUMARATE 100 MG TABLET (FP) PO SCH (21:09)
[2019-03-27] MEDS: chlordiazePOXIDE HCL 10 MG CAPSULE PO SCH (06:00)
[2019-03-27 06:39] VITALS: BP 124/71; PULSE 61; TEMP 97.1
[2019-03-27] MEDS: IBUPROFEN 400 MG TABLET (FP) PO PRN (07:17)
--- NOTE | 2019-03-27 15:42 | DS ---
[facility] Detox Discharge Summary Admission Date: 03/23/19 Discharge Date: 03/27/19 - History Present History: Alcohol Dependence Pertinent Past History: pt completed alcohol detox protocol successfully - Physical Exam Results Vital Signs: Vital Signs Temperature 97.1 F L 03/27/19 06:38 Pulse Rate 61 03/27/19 06:38 Respiratory Rate 18 03/27/19 06:38 Blood Pressure 124/71 03/27/19 06:38 O2 Sat by Pulse Oximetry (%) - Treatment Hospital Course: Detox Protocol Followed, Detoxed Safely, Responded well, Discharged Condition Good - Medication Discharge Medications: Ambulatory Orders Quetiapine Fumarate [Seroquel] 100 mg PO HS #30 tablet 01/27/19 Quetiapine Fumarate [Seroquel] 100 mg PO HS #30 tablet 03/24/19 - AMA Did Patient Leave Against Medical Advice: No
== END 2019-03-27 08:36 | disposition home or self-care (01) | DRG 774 ==
LOC: YASAS 08:42 → Y3N 10:42
PROVIDERS: ADMIT Surgery; ATTEND Surgery
PROC: HZ2ZZZZ Detoxification Services for Substance Abuse Treatment (ICD-10-PCS; principal; 2019-03-23)
DX: F10.230 Alcohol dependence with withdrawal, uncomplicated (principal); F14.20 Cocaine dependence, uncomplicated; F17.213 Nicotine dependence, cigarettes, with withdrawal; F31.9 Bipolar disorder, unspecified; F19.24 Other psychoactive substance dependence with psychoactive substance-induced mood disorder; G47.00 Insomnia, unspecified; B35.3 Tinea pedis
CPT/HCPCS: 36415; 80053; 85027; 86593

== ENCOUNTER 2019-04-19 10:59 | Inpatient (IN) | payer SELFPAY ==
[2019-04-19 12:59] VITALS: BMI 25.8
--- NOTE | 2019-04-19 18:17 | HP ---
CIWA Score Nausea/Vomitin Muscle Tremors: 3 Anxiety: 3 Agitation: 3 Paroxysmal Sweats: 1-Minimal Palms Moist Orientation: 0-Oriented Tacttile Disturbances: 1-Very Mild Itch/Numbness Auditory Disturbances: 1-Very Mild Visual Disturbances: 0-None Headache: 2-Mild CIWA-Ar Total Score: 17 - Admission Criteria OASAS Guidelines: Admission for Medically Managed Detox: Requires at least one of the followin. CIWA greater than 12 2. Seizures within the past 24 hours 3. Delirium tremens within the past 24 hours 4. Hallucinations within the past 24 hours 5. Acute intervention needed for co occurring medical disorder 6. Acute intervention needed for co occurring psychiatric disorder 7. Severe withdrawal that cannot be handled at a lower level of care (continued vomiting, continued diarrhea, abnormal vital signs) requiring intravenous medication and/or fluids 8. Admission ROS [facility] - HPI Chief Complaint: i need help to stop drinking alcohol,cocaine,xanax Allergies/Adverse Reactions: Allergies Allergy/AdvReac Type Severity Reaction Status Date / Time No Known Allergies Allergy Verified 03/23/19 09:13 History of Present Illness: this 58 years old male with alcohol,cocaine and xanax abused,seeking detox, withdrawal symptom nicotine dependence insomnia longest period of sobriety 8 years plan for rehab Exam Limitations: No Limitations - Ebola screening Have you traveled outside of the country in the last 21 days: No (N) Have you had contact with anyone from an Ebola affected area: No Do you have a fever: No - Review of Systems Constitutional: Chills, Loss of Appetite, Malaise, Night Sweats, Changes in sleep, Weakness EENT: reports: Tearing, Nose Congestion Respiratory: reports: No Symptoms reported Cardiac: reports: No Symptoms Reported GI: reports: Nausea, Poor Appetite, Vomiting, Abdominal cramping : reports: No Symptoms Reported Musculoskeletal: reports: Back Pain, Muscle Pain Integumentary: reports: Dryness Neuro: reports: Headache, Tremors Endocrine: reports: No Symptoms Reported Hematology: reports: No Symptoms Reported Psychiatric: reports: No Sypmtoms Reported, Judgement Intact, Mood/Affect Appropiate, Orientated x3, other (insomnia) Patient History - Patient Medical History Hx Anemia: No Hx Asthma: No Hx Chronic Obstructive Pulmonary Disease (COPD): No Hx Cancer: No Hx Cardiac Disorders: No Hx Congestive Heart Failure: No Hx Hypertension: No Hx Hypercholesterolemia: No Hx Pacemaker: No HX Cerebrovascular Accident: No Hx Seizures: No Hx Dementia: No Hx Diabetes: No Hx Gastrointestinal Disorders: No Hx Liver Disease: No Hx Genitourinary Disorders: No Hx Sexually Transmitted Disorders: No Hx Renal Disease (ESRD): No Hx Thyroid Disease: No Hx Human Immunodeficiency Virus (HIV): No (01/12 negative) Hx Hepatitis C: No Hx Depression: No Hx Suicide Attempt: No Hx Bipolar Disorder: No Hx Schizophrenia: No Other Medical History: insomnia,nosuicidal,no homicidal - Patient Surgical History Past Surgical History: Yes Hx Neurologic Surgery: No Hx Cataract Extraction: No Hx Cardiac Surgery: No Hx Lung Surgery: No Hx Breast Surgery: No Hx Breast Biopsy: No Hx Abdominal Surgery: No Hx Appendectomy: No Hx Cholecystectomy: No Hx Genitourinary Surgery: No Hx Section: No Hx Orthopedic Surgery: No Other Surgical History: fx, left mandible in 2017,had wiring Anesthesia Reaction: No - PPD History Previous Implant?: Yes Documented Results: Positive w/proof Date: 06/23/18 Results: chest xray neg - Smoking Cessation Smoking history: Current every day smoker Have you smoked in the past 12 months: Yes Aproximately how many cigarettes per day: 10 Cigars Per Day: 0 Hx Chewing Tobacco Use: No Initiated information on smoking cessation: Yes 'Breaking Loose' booklet given: 04/19/19 - Substance & Tx. History Hx Alcohol Use: Yes Hx Substance Use: Yes Substance Use Type: Alcohol, Cocaine, Tranquilizers Hx Substance Use Treatment: Yes ([facility] 03/23/19 to 03/27/19) - Substances abused Alcohol Substance route: Oral Frequency: Daily Amount used: 3 pt. liquor ( vodka), 7 beers ( 16 oz) Age of first use: 38 Date of last use: 04/19/19 Cocaine Substance route: Inhalation Frequency: Daily Amount used: $300 Age of first use: 32 Date of last use: 04/19/19 Alprazolam (Xanax) Substance route: Oral Frequency: 1-3 times last 30 days Amount used: 2 mgs Age of first use: 58 Date of last use: 04/17/19 Family Disease History - Family Disease History Family Disease History: Other: Father (, cancer ), Mother (, homicide ) Admission Physical Exam [facility] - Vital Signs Vital Signs: Vital Signs - 24 hr 04/19/19 12:58 Temperature 97.7 F Pulse Rate 64 Respiratory 18 Rate Blood Pressure 132/88 - Physical General Appearance: Yes: Moderate Distress, Tremorous, Irritable, Sweating, Anxious HEENTM: Yes: Normocephalic, MELINDA, Pharynx Normal Respiratory: Yes: Lungs Clear, Normal Breath Sounds, No Respiratory Distress Neck: Yes: Within Normal Limits, Supple, Trachea in good position Breast: Yes: Within Normal Limits Cardiology: Yes: Within Normal Limits, Regular Rhythm, Regular Rate, S1, S2 Abdominal: Yes: Within Normal Limits, Normal Bowel Sounds, Non Tender, Soft Genitourinary: Yes: Within Normal Limits Back: Yes: Muscle Spasm Musculoskeletal: Yes: Back pain, Joint Stiffness, Muscle Pain Extremities: Yes: Within Normal Limits, Normal Range of Motion, Tremors Neurological: Yes: aircraft skin burnisher II-XII NML intact, Alert, Motor Strength 5/5 Integumentary: Yes: Dry, Other (tinea pedis) Lymphatic: Yes: Within Normal Limits - Diagnostic (1) Alcohol dependence with uncomplicated withdrawal Current Visit: No Status: Acute (2) Sedative hypnotic or anxiolytic dependence Current Visit: No Status: Acute (3) Cocaine dependence Current Visit: No Status: Chronic Qualifiers: Substance use status: uncomplicated Qualified Code(s): F14.20 - Cocaine dependence, uncomplicated (4) Insomnia Current Visit: No Status: Chronic (5) Nicotine dependence Current Visit: No Status: Chronic Qualifiers: Nicotine product type: cigarettes Substance use status: in withdrawal Qualified Code(s): F17.213 - Nicotine dependence, cigarettes, with withdrawal (6) Tinea pedis Current Visit: No Status: Acute Qualifiers: Laterality: bilateral Qualified Code(s): B35.3 - Tinea pedis (7) Positive PPD Current Visit: No Status: Resolved Comment: Rx'd in past with INH and B-6. Last CX-Ray 06/23/18. (8) Fracture, mandible Current Visit: Yes Status: Acute (9) Dehydration Current Visit: Yes Status: Acute Cleared for Admission [facility] - Detox or Rehab [facility] Level of Care: Medically Managed Detox Regimen/Protocol: Librium Breathalyzer - Breathalyzer Breathalyzer: 0 Urine Drug Screen - Test Device Lot number: [id number] Expiration date: 12/25/20 - Control Is test valid?: Yes - Results Drug screen NEGATIVE: No Urine drug screen results: FREDDY-Cocaine, BZO-Benzodiazepines Inpatient Rehab Admission - Rehab Decision to Admit Inpatient rehab admission?: No
[2019-04-19] MEDS ORDERED: MAGNESIUM CITRATE 300 ML BOTTLE PO PRN (18:27)
[2019-04-19] MEDS ORDERED: hydrOXYzine PAMOATE 25 MG CAPSULE (FP) PO PRN (18:27)
[2019-04-19] MEDS ORDERED: BISMUTH SUBSALICYLATE 524 MG/30 ML UD PO PRN (18:27)
[2019-04-19] MEDS ORDERED: ACETAMINOPHEN 325 MG TABLET (FP) PO PRN ×2 (18:27)
[2019-04-19] MEDS ORDERED: METHOCARBAMOL 500 MG TABLET PO PRN (18:27)
[2019-04-19] MEDS ORDERED: MAG HYDROX/AL HYDROX/SIMETH 30 ML UNIT-DOSE CUP PO PRN (18:27)
[2019-04-19] MEDS ORDERED: IBUPROFEN 400 MG TABLET (FP) PO PRN (18:27)
[2019-04-19] MEDS ORDERED: MENTHOL/PHENOL 1 EACH UD MM PRN (18:27)
[2019-04-19] MEDS ORDERED: chlordiazePOXIDE HCL 25 MG CAPSULE PO PRN (18:27)
[2019-04-19] MEDS ORDERED: MELATONIN 5 MG TABLETS PO PRN (18:27)
[2019-04-19] MEDS ORDERED: MAGNESIUM HYDROX 2400MG/30ML ORAL SUSPENSION 30 ML CUP PO PRN (18:27)
[2019-04-19] MEDS: chlordiazePOXIDE HCL 25 MG CAPSULE PO SCH (22:36)
[2019-04-19] MEDS: QUEtiapine FUMARATE 100 MG TABLET (FP) PO SCH (22:36)
[2019-04-19] MEDS: THIAMINE HCL 100 MG TABLET (FP) PO SCH (22:36)
[2019-04-19 23:47] LABS: URINE APPEARANCE CLEAR; URINE BILIRUBIN NEGATIVE (NEGATIVE); URINE COLOR YELLOW; URINE GLUCOSE (UA) NEGATIVE (NEGATIVE); URINE KETONE TRACE (NEGATIVE); URINE LEUK ESTERASE NEGATIVE (NEGATIVE); URINE NITRITE NEGATIVE (NEGATIVE); URINE PROTEIN NEGATIVE (NEGATIVE)
[2019-04-20] MEDS: chlordiazePOXIDE HCL 25 MG CAPSULE PO SCH ×4 (05:14→22:03)
--- NOTE | 2019-04-20 09:43 | PN ---
S CIWA - CIWA Score Nausea/Vomitin-Mild Nausea/No Vomiting Muscle Tremors: 3 Anxiety: 4-Mod. Anxious/Guarded Agitation: 3 Paroxysmal Sweats: 1-Minimal Palms Moist Orientation: 1-Uncertain about Date Tacttile Disturbances: 0-None Auditory Disturbances: 0-None Visual Disturbances: 0-None Headache: 0-None Present CIWA-Ar Total Score: 13 BHS Progress Note (SOAP) Subjective: resting on bed hesitating to talk about relapse tired Objective: 04/20/19 09:44 Vital Signs Temperature 97.4 F L 04/20/19 09:18 Pulse Rate 74 04/20/19 09:18 Respiratory Rate 18 04/20/19 09:18 Blood Pressure 113/82 04/20/19 09:18 O2 Sat by Pulse Oximetry (%) Laboratory Last Values Urine Color Yellow 04/19/19 20:52 Urine Appearance Clear 04/19/19 20:52 Urine pH 5.0 (5.0-8.0) 04/19/19 20:52 Ur Specific [place] 1.024 (1.010-1.035) 04/19/19 20:52 Urine Protein Negative (NEGATIVE) 04/19/19 20:52 Urine Glucose (UA) Negative (NEGATIVE) 04/19/19 20:52 Urine Ketones Trace (NEGATIVE) H 04/19/19 20:52 Urine Blood Negative (NEGATIVE) 04/19/19 20:52 Urine Nitrite Negative (NEGATIVE) 04/19/19 20:52 Urine Bilirubin Negative (NEGATIVE) 04/19/19 20:52 Urine Urobilinogen 1.0 mg/dL (0.2-1.0) 04/19/19 20:52 Ur Leukocyte Esterase Negative (NEGATIVE) 04/19/19 20:52 lab noted Assessment: 04/20/19 09:55 alcohol and benzo withdrawal sx Plan: continue detox
[2019-04-20 09:57] LABS: HEMATOCRIT 40.4 % (35.4-49); HEMOGLOBIN 13.3 GM/dL (11.7-16.9); MCH 30.1 pg (25.7-33.7); MCHC 32.9 g/dl (32.0-35.9); MEAN CELL VOLUME 91.4 fl (80-96); PLATELET COUNT 253 K/MM3 (134-434); RBC 4.42 M/mm3 (4.00-5.60); RDW 15.1 % (11.9-15.9); WHITE BLOOD COUNT 5.7 K/mm3 (4.0-10.0)
[2019-04-20] MEDS: PRENATAL VITAMINS W/ FOLIC ACID TABLET (FP) PO SCH (10:22)
[2019-04-20 10:29] LABS: ALBUMIN 3.1 g/dl (3.4-5.0); BILIRUBIN,TOTAL 0.2 mg/dL (0.2-1); CALCIUM 9.1 mg/dL (8.5-10.1); CREATININE 1.2 mg/dL (0.55-1.3); POTASSIUM 4.3 mmol/L (3.5-5.1); TOT PROT 6.6 g/dl (6.4-8.2)
[2019-04-20] MEDS: THIAMINE HCL 100 MG TABLET (FP) PO SCH (22:03)
[2019-04-20] MEDS: QUEtiapine FUMARATE 100 MG TABLET (FP) PO SCH (22:03)
[2019-04-21] MEDS: chlordiazePOXIDE HCL 25 MG CAPSULE PO SCH ×3 (05:29→17:35)
[2019-04-21] MEDS: PRENATAL VITAMINS W/ FOLIC ACID TABLET (FP) PO SCH (10:38)
--- NOTE | 2019-04-21 11:56 | PN ---
S CIWA - CIWA Score Nausea/Vomitin-Mild Nausea/No Vomiting Muscle Tremors: 4-Moderate,w/Arms Extend Anxiety: 3 Agitation: 2 Paroxysmal Sweats: 1-Minimal Palms Moist Orientation: 0-Oriented Tacttile Disturbances: 0-None Auditory Disturbances: 0-None Visual Disturbances: 0-None Headache: 1-Very Mild CIWA-Ar Total Score: 12 S Progress Note (SOAP) Subjective: tremor otherwise doing ok today discuss relapse prevention Objective: 04/21/19 12:13 Vital Signs Temperature 98 F 04/21/19 09:06 Pulse Rate 66 04/21/19 09:06 Respiratory Rate 20 04/21/19 09:06 Blood Pressure 130/84 04/21/19 09:06 O2 Sat by Pulse Oximetry (%) Laboratory Last Values WBC 5.7 K/mm3 (4.0-10.0) 04/20/19 07:50 RBC 4.42 M/mm3 (4.00-5.60) 04/20/19 07:50 Hgb 13.3 GM/dL (11.7-16.9) 04/20/19 07:50 Hct 40.4 % (35.4-49) 04/20/19 07:50 MCV 91.4 fl (80-96) 04/20/19 07:50 MCH 30.1 pg (25.7-33.7) 04/20/19 07:50 MCHC 32.9 g/dl (32.0-35.9) 04/20/19 07:50 RDW 15.1 % (11.9-15.9) 04/20/19 07:50 Plt Count 253 K/MM3 (134-434) D 04/20/19 07:50 MPV 9.0 fl (7.5-11.1) 04/20/19 07:50 Sodium 141 mmol/L (136-145) 04/20/19 07:50 Potassium 4.3 mmol/L (3.5-5.1) 04/20/19 07:50 Chloride 108 mmol/L (98-107) H 04/20/19 07:50 Carbon Dioxide 27 mmol/L (21-32) 04/20/19 07:50 Anion Gap 6 MMOL/L (8-16) L 04/20/19 07:50 BUN 14 mg/dL (7-18) 04/20/19 07:50 Creatinine 1.2 mg/dL (0.55-1.3) 04/20/19 07:50 Est GFR (CKD-EPI)AfAm 77.88 04/20/19 07:50 Est GFR (CKD-EPI)NonAf 67.19 04/20/19 07:50 Random Glucose 64 mg/dL (74-106) L 04/20/19 07:50 Calcium 9.1 mg/dL (8.5-10.1) 04/20/19 07:50 Total Bilirubin 0.2 mg/dL (0.2-1) 04/20/19 07:50 AST 19 U/L (15-37) 04/20/19 07:50 ALT 27 U/L (13-61) 04/20/19 07:50 Alkaline Phosphatase 87 U/L (45-117) 04/20/19 07:50 Total Protein 6.6 g/dl (6.4-8.2) 04/20/19 07:50 Albumin 3.1 g/dl (3.4-5.0) L 04/20/19 07:50 Urine Color Yellow 04/19/19 20:52 Urine Appearance Clear 04/19/19 20:52 Urine pH 5.0 (5.0-8.0) 04/19/19 20:52 Ur Specific [place] 1.024 (1.010-1.035) 04/19/19 20:52 Urine Protein Negative (NEGATIVE) 04/19/19 20:52 Urine Glucose (UA) Negative (NEGATIVE) 04/19/19 20:52 Urine Ketones Trace (NEGATIVE) H 04/19/19 20:52 Urine Blood Negative (NEGATIVE) 04/19/19 20:52 Urine Nitrite Negative (NEGATIVE) 04/19/19 20:52 Urine Bilirubin Negative (NEGATIVE) 04/19/19 20:52 Urine Urobilinogen 1.0 mg/dL (0.2-1.0) 04/19/19 20:52 Ur Leukocyte Esterase Negative (NEGATIVE) 04/19/19 20:52 RPR Titer Nonreactive (NONREACTIVE) 04/20/19 07:50 lab noted Assessment: 04/21/19 12:13 alcohol withdrawal sx Plan: continue detox
[2019-04-21] MEDS: THIAMINE HCL 100 MG TABLET (FP) PO SCH (22:03)
[2019-04-21] MEDS: QUEtiapine FUMARATE 100 MG TABLET (FP) PO SCH (22:03)
[2019-04-21] MEDS: chlordiazePOXIDE HCL 10 MG CAPSULE PO SCH (22:03)
[2019-04-21] MEDS ORDERED: chlordiazePOXIDE HCL 10 MG CAPSULE PO PRN (23:00)
[2019-04-22] MEDS: chlordiazePOXIDE HCL 10 MG CAPSULE PO SCH ×3 (06:26→16:47)
[2019-04-22] MEDS: PRENATAL VITAMINS W/ FOLIC ACID TABLET (FP) PO SCH (10:37)
--- NOTE | 2019-04-22 14:00 | PN ---
S CIWA - CIWA Score Nausea/Vomitin-Mild Nausea/No Vomiting Muscle Tremors: 2 Anxiety: 1-Mildly Anxious Agitation: 2 Paroxysmal Sweats: 1-Minimal Palms Moist Orientation: 0-Oriented Tacttile Disturbances: 1-Very Mild Itch/Numbness Auditory Disturbances: 0-None Visual Disturbances: 0-None Headache: 1-Very Mild CIWA-Ar Total Score: 9 S Progress Note (SOAP) Subjective: FEELING BETTER DISCUSS AFTERCARE WITH STAFF ENCOURAGE THE PATIENT TO ATTEND COMMUNITY SELF HELP SUPPORT MEETING Objective: 04/22/19 14:03 Vital Signs Temperature 98.3 F 04/22/19 09:11 Pulse Rate 72 04/22/19 09:11 Respiratory Rate 16 04/22/19 09:11 Blood Pressure 103/69 04/22/19 09:11 O2 Sat by Pulse Oximetry (%) Laboratory Last Values WBC 5.7 K/mm3 (4.0-10.0) 04/20/19 07:50 RBC 4.42 M/mm3 (4.00-5.60) 04/20/19 07:50 Hgb 13.3 GM/dL (11.7-16.9) 04/20/19 07:50 Hct 40.4 % (35.4-49) 04/20/19 07:50 MCV 91.4 fl (80-96) 04/20/19 07:50 MCH 30.1 pg (25.7-33.7) 04/20/19 07:50 MCHC 32.9 g/dl (32.0-35.9) 04/20/19 07:50 RDW 15.1 % (11.9-15.9) 04/20/19 07:50 Plt Count 253 K/MM3 (134-434) D 04/20/19 07:50 MPV 9.0 fl (7.5-11.1) 04/20/19 07:50 Sodium 141 mmol/L (136-145) 04/20/19 07:50 Potassium 4.3 mmol/L (3.5-5.1) 04/20/19 07:50 Chloride 108 mmol/L (98-107) H 04/20/19 07:50 Carbon Dioxide 27 mmol/L (21-32) 04/20/19 07:50 Anion Gap 6 MMOL/L (8-16) L 04/20/19 07:50 BUN 14 mg/dL (7-18) 04/20/19 07:50 Creatinine 1.2 mg/dL (0.55-1.3) 04/20/19 07:50 Est GFR (CKD-EPI)AfAm 77.88 04/20/19 07:50 Est GFR (CKD-EPI)NonAf 67.19 04/20/19 07:50 Random Glucose 64 mg/dL (74-106) L 04/20/19 07:50 Calcium 9.1 mg/dL (8.5-10.1) 04/20/19 07:50 Total Bilirubin 0.2 mg/dL (0.2-1) 04/20/19 07:50 AST 19 U/L (15-37) 04/20/19 07:50 ALT 27 U/L (13-61) 04/20/19 07:50 Alkaline Phosphatase 87 U/L (45-117) 04/20/19 07:50 Total Protein 6.6 g/dl (6.4-8.2) 04/20/19 07:50 Albumin 3.1 g/dl (3.4-5.0) L 04/20/19 07:50 Urine Color Yellow 04/19/19 20:52 Urine Appearance Clear 04/19/19 20:52 Urine pH 5.0 (5.0-8.0) 04/19/19 20:52 Ur Specific [place] 1.024 (1.010-1.035) 04/19/19 20:52 Urine Protein Negative (NEGATIVE) 04/19/19 20:52 Urine Glucose (UA) Negative (NEGATIVE) 04/19/19 20:52 Urine Ketones Trace (NEGATIVE) H 04/19/19 20:52 Urine Blood Negative (NEGATIVE) 04/19/19 20:52 Urine Nitrite Negative (NEGATIVE) 04/19/19 20:52 Urine Bilirubin Negative (NEGATIVE) 04/19/19 20:52 Urine Urobilinogen 1.0 mg/dL (0.2-1.0) 04/19/19 20:52 Ur Leukocyte Esterase Negative (NEGATIVE) 04/19/19 20:52 RPR Titer Nonreactive (NONREACTIVE) 04/20/19 07:50 LAB NOTED Assessment: 04/22/19 14:04 WITHDRAWAL SX Plan: CONTINUE DETOX
[2019-04-22] MEDS: QUEtiapine FUMARATE 100 MG TABLET (FP) PO SCH (21:15)
[2019-04-22] MEDS: THIAMINE HCL 100 MG TABLET (FP) PO SCH (21:15)
[2019-04-22] MEDS ORDERED: chlordiazePOXIDE HCL 10 MG CAPSULE PO SCH (23:00)
[2019-04-23 06:32] VITALS: BP 124/80; PULSE 74; TEMP 97.1
--- NOTE | 2019-04-23 16:08 | DS ---
[facility] Detox Discharge Summary Admission Date: 04/19/19 Discharge Date: 04/23/19 - History Present History: Alcohol Dependence, Sedative Dependence Additional Comments: 58 years old male admitted on 04/19/19 for alcohol and benzo withdrawal stabilization completed detox regimen aftercare [facility] Pertinent Past History: bring in medication list and lab report to aftercare appointment - Physical Exam Results Vital Signs: Vital Signs Temperature 97.1 F L 04/23/19 06:31 Pulse Rate 74 04/23/19 06:31 Respiratory Rate 18 04/23/19 06:31 Blood Pressure 124/80 04/23/19 06:31 O2 Sat by Pulse Oximetry (%) Pertinent Admission Physical Exam Findings: alcohol and benzo withdrawal sx Laboratory Last Values WBC 5.7 K/mm3 (4.0-10.0) 04/20/19 07:50 RBC 4.42 M/mm3 (4.00-5.60) 04/20/19 07:50 Hgb 13.3 GM/dL (11.7-16.9) 04/20/19 07:50 Hct 40.4 % (35.4-49) 04/20/19 07:50 MCV 91.4 fl (80-96) 04/20/19 07:50 MCH 30.1 pg (25.7-33.7) 04/20/19 07:50 MCHC 32.9 g/dl (32.0-35.9) 04/20/19 07:50 RDW 15.1 % (11.9-15.9) 04/20/19 07:50 Plt Count 253 K/MM3 (134-434) D 04/20/19 07:50 MPV 9.0 fl (7.5-11.1) 04/20/19 07:50 Sodium 141 mmol/L (136-145) 04/20/19 07:50 Potassium 4.3 mmol/L (3.5-5.1) 04/20/19 07:50 Chloride 108 mmol/L (98-107) H 04/20/19 07:50 Carbon Dioxide 27 mmol/L (21-32) 04/20/19 07:50 Anion Gap 6 MMOL/L (8-16) L 04/20/19 07:50 BUN 14 mg/dL (7-18) 04/20/19 07:50 Creatinine 1.2 mg/dL (0.55-1.3) 04/20/19 07:50 Est GFR (CKD-EPI)AfAm 77.88 04/20/19 07:50 Est GFR (CKD-EPI)NonAf 67.19 04/20/19 07:50 Random Glucose 64 mg/dL (74-106) L 04/20/19 07:50 Calcium 9.1 mg/dL (8.5-10.1) 04/20/19 07:50 Total Bilirubin 0.2 mg/dL (0.2-1) 04/20/19 07:50 AST 19 U/L (15-37) 04/20/19 07:50 ALT 27 U/L (13-61) 04/20/19 07:50 Alkaline Phosphatase 87 U/L (45-117) 04/20/19 07:50 Total Protein 6.6 g/dl (6.4-8.2) 04/20/19 07:50 Albumin 3.1 g/dl (3.4-5.0) L 04/20/19 07:50 Urine Color Yellow 04/19/19 20:52 Urine Appearance Clear 04/19/19 20:52 Urine pH 5.0 (5.0-8.0) 04/19/19 20:52 Ur Specific [place] 1.024 (1.010-1.035) 04/19/19 20:52 Urine Protein Negative (NEGATIVE) 04/19/19 20:52 Urine Glucose (UA) Negative (NEGATIVE) 04/19/19 20:52 Urine Ketones Trace (NEGATIVE) H 04/19/19 20:52 Urine Blood Negative (NEGATIVE) 04/19/19 20:52 Urine Nitrite Negative (NEGATIVE) 04/19/19 20:52 Urine Bilirubin Negative (NEGATIVE) 04/19/19 20:52 Urine Urobilinogen 1.0 mg/dL (0.2-1.0) 04/19/19 20:52 Ur Leukocyte Esterase Negative (NEGATIVE) 04/19/19 20:52 RPR Titer Nonreactive (NONREACTIVE) 04/20/19 07:50 lab noted - Treatment Hospital Course: Detox Protocol Followed, Detoxed Safely, Responded well, Discharged Condition Good, Rehab Referral Accepted Patient has Accepted a Rehab Referral to: [facility] - Medication Discharge Medications: Ambulatory Orders Quetiapine Fumarate [Seroquel] 100 mg PO HS #30 tablet 01/27/19 Quetiapine Fumarate [Seroquel] 100 mg PO HS #30 tablet 03/24/19 - Diagnosis (1) Alcohol dependence with uncomplicated withdrawal Status: Acute (2) Sedative hypnotic or anxiolytic dependence Status: Acute (3) Nicotine dependence Status: Acute Qualifiers: Nicotine product type: cigarettes Substance use status: in withdrawal Qualified Code(s): F17.213 - Nicotine dependence, cigarettes, with withdrawal (4) Substance induced mood disorder Status: Suspected (5) Positive PPD Status: Resolved - AMA Did Patient Leave Against Medical Advice: No
== END 2019-04-23 09:10 | disposition home or self-care (01) | DRG 774 ==
LOC: YASAS 10:59 → Y3N 18:25
PROVIDERS: ADMIT Surgery; ATTEND Surgery
PROC: HZ2ZZZZ Detoxification Services for Substance Abuse Treatment (ICD-10-PCS; principal; 2019-04-19)
DX: F10.230 Alcohol dependence with withdrawal, uncomplicated (principal); F13.230 Sedative, hypnotic or anxiolytic dependence with withdrawal, uncomplicated; F14.20 Cocaine dependence, uncomplicated; F17.213 Nicotine dependence, cigarettes, with withdrawal; F19.24 Other psychoactive substance dependence with psychoactive substance-induced mood disorder; G47.00 Insomnia, unspecified; E86.0 Dehydration; B35.3 Tinea pedis; R76.11 Nonspecific reaction to tuberculin skin test without active tuberculosis; Z87.81 Personal history of (healed) traumatic fracture
CPT/HCPCS: 36415; 80053; 81003; 85027; 86593

== ENCOUNTER 2019-05-20 11:15 | Inpatient (IN) | payer OTHER ==
[2019-05-20 12:15] VITALS: BMI 24.8
--- NOTE | 2019-05-20 13:28 | HP ---
CIWA Score - Admission Criteria OASAS Guidelines: Admission for Medically Managed Detox: Requires at least one of the followin. CIWA greater than 12 2. Seizures within the past 24 hours 3. Delirium tremens within the past 24 hours 4. Hallucinations within the past 24 hours 5. Acute intervention needed for co occurring medical disorder 6. Acute intervention needed for co occurring psychiatric disorder 7. Severe withdrawal that cannot be handled at a lower level of care (continued vomiting, continued diarrhea, abnormal vital signs) requiring intravenous medication and/or fluids 8. Admission ROS S - HPI Chief Complaint: I prefer rehab. Allergies/Adverse Reactions: Allergies Allergy/AdvReac Type Severity Reaction Status Date / Time No Known Allergies Allergy Verified 05/20/19 12:06 History of Present Illness: pt is a 58yrold male with numerous detox visit, last visit was a month ago but refuses to go to rehab. Pt is stating today that he prefers to go to rehab and last drink was last night with only 4 cans of beer. Pt states he has no withdrawals. Exam Limitations: No Limitations - Ebola screening Have you traveled outside of the country in the last 21 days: No Have you had contact with anyone from an Ebola affected area: No Have you been sick,other than usual withdrawal symptoms: No Do you have a fever: No - Review of Systems Constitutional: No Symptoms Reported EENT: reports: No Symptoms Reported Respiratory: reports: No Symptoms reported Cardiac: reports: No Symptoms Reported GI: reports: No Symptoms Reported : reports: No Symptoms Reported Musculoskeletal: reports: No Symptoms Reported Integumentary: reports: No Symptoms Reported Neuro: reports: No Symptoms reported Endocrine: reports: No Symptoms Reported Hematology: reports: No Symptoms Reported Psychiatric: reports: No Sypmtoms Reported, Judgement Intact, Mood/Affect Appropiate, Orientated x3 Other Systems: Reviewed and Negative Patient History - Patient Medical History Hx Anemia: No Hx Asthma: No Hx Chronic Obstructive Pulmonary Disease (COPD): No Hx Cancer: No Hx Cardiac Disorders: No Hx Congestive Heart Failure: No Hx Hypertension: No Hx Hypercholesterolemia: No Hx Pacemaker: No HX Cerebrovascular Accident: No Hx Seizures: No Hx Dementia: No Hx Diabetes: No Hx Gastrointestinal Disorders: No Hx Liver Disease: No Hx Genitourinary Disorders: No Hx Sexually Transmitted Disorders: No Hx Renal Disease (ESRD): No Hx Thyroid Disease: No Hx Human Immunodeficiency Virus (HIV): No (01/12 negative) Hx Hepatitis C: No (pt denies) Hx Depression: No Hx Suicide Attempt: No Hx Bipolar Disorder: No Hx Schizophrenia: No Other Medical History: ptsd - Patient Surgical History Past Surgical History: Yes Hx Neurologic Surgery: No Hx Cataract Extraction: No Hx Cardiac Surgery: No Hx Lung Surgery: No Hx Breast Surgery: No Hx Breast Biopsy: No Hx Abdominal Surgery: No Hx Appendectomy: No Hx Cholecystectomy: No Hx Genitourinary Surgery: No Hx Section: No Hx Orthopedic Surgery: No Other Surgical History: fx, left mandible in 2017,had wiring Anesthesia Reaction: No - PPD History Previous Implant?: No Documented Results: Positive w/proof Date: 06/23/18 Results: chest xray neg PPD to be Administered?: No - Reproductive History Patient is a Female of Child Bearing Age (11 -55 yrs old): No - Smoking Cessation Smoking history: Current every day smoker Have you smoked in the past 12 months: Yes Aproximately how many cigarettes per day: 10 Cigars Per Day: 0 Hx Chewing Tobacco Use: No Initiated information on smoking cessation: Yes 'Breaking Loose' booklet given: 05/20/19 - Substance & Tx. History Hx Alcohol Use: Yes Hx Substance Use: Yes Substance Use Type: Alcohol, Cocaine, Tranquilizers Hx Substance Use Treatment: Yes (last detox [facility] 2018) - Substances abused Alcohol Substance route: Oral Frequency: Daily Amount used: 4 cans of beer Age of first use: 38 Date of last use: 05/19/19 Cocaine Substance route: Inhalation Frequency: Daily Amount used: $200 Age of first use: 32 Date of last use: 05/19/19 Alprazolam (Xanax) Substance route: Oral Frequency: 1-3 times last 30 days Amount used: 2 mgs Age of first use: 58 Date of last use: 04/17/19 Family Disease History - Family Disease History Family Disease History: Other: Father (, cancer ), Mother (, homicide ) Admission Physical Exam [facility] - Vital Signs Vital Signs: Vital Signs - 24 hr 05/20/19 12:05 Temperature 96.1 F L Pulse Rate 66 Respiratory 18 Rate Blood Pressure 123/87 - Physical General Appearance: Yes: Appropriately Dressed, Moderate Distress HEENTM: Yes: Hearing grossly Normal, Normal Voice Respiratory: Yes: Lungs Clear, Normal Breath Sounds, No Respiratory Distress Neck: Yes: No masses,lesions,Nodules Breast: Yes: Within Normal Limits Cardiology: Yes: Regular Rhythm, Regular Rate, S1, S2 Abdominal: Yes: Normal Bowel Sounds, Non Tender, Soft Genitourinary: Yes: Within Normal Limits Back: Yes: Normal Inspection Musculoskeletal: Yes: full range of Motion Extremities: Yes: Normal Capillary Refill, Normal Inspection, Non-Tender, Tremors Neurological: Yes: Fully Oriented, Alert, Normal Response Integumentary: Yes: Normal Color Lymphatic: Yes: Within Normal Limits - Diagnostic (1) Alcohol dependence Current Visit: Yes Status: Chronic Qualifiers: Complication of substance-induced condition: uncomplicated (2) Fracture, mandible Current Visit: No Status: Chronic Qualifiers: Encounter type: sequela Fracture type: closed Laterality: unspecified laterality (3) Nicotine dependence Current Visit: Yes Status: Chronic Qualifiers: Nicotine product type: cigarettes Substance use status: uncomplicated Qualified Code(s): F17.210 - Nicotine dependence, cigarettes, uncomplicated (4) Substance-induced sleep disorder Current Visit: No Status: Acute (5) Cocaine dependence Current Visit: Yes Status: Chronic Qualifiers: Substance use status: uncomplicated Qualified Code(s): F14.20 - Cocaine dependence, uncomplicated (6) Insomnia Current Visit: Yes Status: Chronic (7) Substance induced mood disorder Current Visit: No Status: Suspected (8) Substance induced mood disorder Current Visit: No Status: Suspected (9) Positive PPD Current Visit: No Status: Chronic Comment: Rx'd in past with INH and B-6. Last CX-Ray 06/23/18. (10) Bipolar disorder Current Visit: No Status: Ruled-out Cleared for Admission [facility] - Detox or Rehab [facility] Level of Care: Medically Managed Breathalyzer - Breathalyzer Breathalyzer: 0 Urine Drug Screen - Test Device Lot number: [id number] Expiration date: 01/22/21 - Control Is test valid?: Yes - Results Drug screen NEGATIVE: No Urine drug screen results: FREDDY-Cocaine, BZO-Benzodiazepines Inpatient Rehab Admission - Rehab Decision to Admit Inpatient rehab admission?: Yes - Initial Determination Are CD services needed?: Yes Free of communicable disease: Yes Not in need of hospitalization: Yes - Rehab Admission Criteria Previous failed treatment: Yes Poor recovery environment: Yes Comorbidities: Yes Lacks judgement: Yes Patient is meeting Inpatient Rehab admission criteria:: Yes
[2019-05-20] MEDS ORDERED: MAGNESIUM HYDROX 2400MG/30ML ORAL SUSPENSION 30 ML CUP PO PRN (14:16)
[2019-05-20] MEDS ORDERED: MAG HYDROX/AL HYDROX/SIMETH 30 ML UNIT-DOSE CUP PO PRN (14:16)
[2019-05-20] MEDS ORDERED: MENTHOL/PHENOL 1 EACH UD MM PRN (14:16)
[2019-05-20] MEDS ORDERED: P-EPHED 60MG/TRIPROLIDI 2.5MG TABLET PO PRN (14:16)
[2019-05-20] MEDS ORDERED: NICOTINE POLACRILEX 4 MG GUM BUC PRN (14:16)
[2019-05-20] MEDS ORDERED: MAGNESIUM CITRATE 300 ML BOTTLE PO PRN (14:16)
[2019-05-20] MEDS ORDERED: guaiFENesin 200 MG/10 ML 10 ML UNIT-DOSE CUPS PO PRN (14:16)
[2019-05-20] MEDS ORDERED: LOPERAMIDE HCL 2 MG CAPSULE PO PRN (14:16)
[2019-05-20 17:01] LABS: ALBUMIN 3.6 g/dl (3.4-5.0); BILIRUBIN,TOTAL 0.4 mg/dL (0.2-1); BLOOD UREA NITROGEN 14.1 mg/dL (7-18); CALCIUM 9.3 mg/dL (8.5-10.1); POTASSIUM 4.1 mmol/L (3.5-5.1); TOT PROT 7.1 g/dl (6.4-8.2)
[2019-05-20 18:13] LABS: HEMATOCRIT 41.6 % (35.4-49); HEMOGLOBIN 13.5 GM/dL (11.7-16.9); MCH 30.3 pg (25.7-33.7); MCHC 32.6 g/dl (32.0-35.9); MEAN CELL VOLUME 93.1 fl (80-96); MEAN PLT VOLUME 8.9 fl (7.5-11.1); PLATELET COUNT 199 K/MM3 (134-434); RBC 4.46 M/mm3 (4.00-5.60); RDW 14.8 % (11.9-15.9); WHITE BLOOD COUNT 5.2 K/mm3 (4.0-10.0)
[2019-05-20 20:47] LABS: URINE APPEARANCE CLEAR; URINE BILIRUBIN NEGATIVE (NEGATIVE); URINE COLOR YELLOW; URINE GLUCOSE (UA) NEGATIVE (NEGATIVE); URINE KETONE NEGATIVE (NEGATIVE); URINE LEUK ESTERASE NEGATIVE (NEGATIVE); URINE NITRITE NEGATIVE (NEGATIVE); URINE PROTEIN NEGATIVE (NEGATIVE); URINE UROBILINOGEN 0.2 mg/dL (0.2-1.0)
[2019-05-20] MEDS: THIAMINE HCL 100 MG TABLET (FP) PO SCH (21:09)
[2019-05-20] MEDS ORDERED: MELATONIN 5 MG TABLETS PO PRN (22:00)
[2019-05-20] MEDS ORDERED: QUEtiapine FUMARATE 100 MG TABLET (FP) PO ONE (23:00)
[2019-05-21] MEDS: PRENATAL VITAMINS W/ FOLIC ACID TABLET (FP) PO SCH (09:44)
[2019-05-21] MEDS: NICOTINE 21 MG/24 HOURS TOPICAL PATCH TD SCH (09:45)
--- NOTE | 2019-05-21 14:01 | CONSULT ---
[facility] Psychiatric Consult - Data Date of interview: 05/21/19 Admission source: Self-referred Identifying data: Mr Vu is a 58 years old single Black male, unemployed , homeless seeking rehab treatment for alcohol, cocaine and benzodiazepine Substance Abuse History: Reports history of alcohol, cocaine and xanax use. Refer to addiction counselor's summary for further information Medical History: Significant for PPD+ and history of fracture of mandible in 2011. Psychiatric History: Reports that he saw a psychiatrist while in [facility] in 2013 after his mother . Reports that he was diagnosed with Bipolar Disorder and stress and was started on Seroquel. Claims that he continued to take it after his release in 2016 from a psychiatrist at the [facility]. He was seen by Dr Echevarria on 02/1319 while in detox and he was continued on Seroquel 10 mg po HS. Denies previous psychiatric hospitalization or suicidal attempt. At present, denies experiencing psychotic, manic or depressive symptoms, S/H ideations. However, reports feeling irritable and sleeping poorly without medication Physical/Sexual Abuse/Trauma History: Denies history of emotional, physical or sexual abuse as well as DV relationship. Additional Comment: Reports history of multiple previous arrests and felony convictions. Mental Status Exam - Mental Status Exam Alert and Oriented to: Time, Place, Person Cognitive Function: Fair Patient Appearance: Well Groomed Mood: Irritable Affect: Appropriate Patient Behavior: Cooperative Speech Pattern: Clear Voice Loudness: Normal Thought Process: Intact Hallucinations: Denies Suicidal Ideation: Denies Homicidal Ideation: Denies Insight/Judgement: Poor Sleep: Poorly Appetite: Good Muscle strength/Tone: Normal Gait/Station: Normal Psychiatric Findings - Problem List ([place] 1, 2,3) (1) Mood disorder Current Visit: Yes Status: Chronic (2) Substance induced mood disorder Current Visit: Yes Status: Acute (3) Substance-induced sleep disorder Current Visit: Yes Status: Acute (4) Alcohol dependence Current Visit: Yes Status: Acute Qualifiers: Complication of substance-induced condition: uncomplicated (5) Cocaine dependence Current Visit: Yes Status: Acute Qualifiers: Substance use status: uncomplicated Qualified Code(s): F14.20 - Cocaine dependence, uncomplicated (6) Sedative, hypnotic or anxiolytic abuse Current Visit: Yes Status: Acute (7) Nicotine dependence Current Visit: Yes Status: Chronic Qualifiers: Nicotine product type: cigarettes Substance use status: uncomplicated Qualified Code(s): F17.210 - Nicotine dependence, cigarettes, uncomplicated (8) Positive PPD Current Visit: No Status: Chronic Comment: Rx'd in past with INH and B-6. Last CX-Ray 06/23/18. (9) Fracture, mandible Current Visit: No Status: Resolved Qualifiers: Encounter type: sequela Fracture type: closed Laterality: unspecified laterality - Initial Treatment Plan Initial Treatment Plan: 1) Continue Seroquel 100 mg po HS. 2) Continue inpatient rehabilitation
[2019-05-21] MEDS: THIAMINE HCL 100 MG TABLET (FP) PO SCH (21:20)
[2019-05-21] MEDS: QUEtiapine FUMARATE 100 MG TABLET (FP) PO SCH (21:20)
[2019-05-22] MEDS: IBUPROFEN 400 MG TABLET (FP) PO PRN ×2 (06:22→18:44)
[2019-05-22] MEDS: PRENATAL VITAMINS W/ FOLIC ACID TABLET (FP) PO SCH (09:30)
[2019-05-22] MEDS: hydrOXYzine PAMOATE 50 MG CAPSULE (FP) PO PRN (09:30)
[2019-05-22] MEDS: ACETAMINOPHEN 325 MG TABLET (FP) PO PRN ×2 (09:30→21:13)
[2019-05-22] MEDS: NICOTINE 21 MG/24 HOURS TOPICAL PATCH TD SCH (09:31)
--- NOTE | 2019-05-22 10:32 | PN ---
[facility] Progress Note Note: C/O CHRONIC LOWER BACK PAIN AND REQUESTING PAIN PATCH. Vital Signs - 24 hr 05/22/19 05/22/19 05/22/19 00:30 03:30 06:34 Temperature 97.9 F Pulse Rate 66 Respiratory 18 18 18 Rate Blood Pressure 131/82 Laboratory Tests 05/20/19 05/20/19 05/20/19 14:05 14:05 14:05 WBC 5.2 RBC 4.46 Hgb 13.5 Hct 41.6 MCV 93.1 MCH 30.3 MCHC 32.6 RDW 14.8 Plt Count 199 D MPV 8.9 Sodium 140 Potassium 4.1 Chloride 107 Carbon Dioxide 28 Anion Gap 6 L BUN 14.1 Creatinine 1.0 Est GFR (CKD-EPI)AfAm 97.08 Est GFR (CKD-EPI)NonAf 83.76 Random Glucose 64 L Calcium 9.3 Total Bilirubin 0.4 AST 20 ALT 31 Alkaline Phosphatase 74 Total Protein 7.1 Albumin 3.6 Urine Color Urine Appearance Urine pH Ur Specific [place] Urine Protein Urine Glucose (UA) Urine Ketones Urine Blood Urine Nitrite Urine Bilirubin Urine Urobilinogen Ur Leukocyte Esterase U Pathogenic Cast Auto RPR Titer Nonreactive 05/20/19 14:30 WBC RBC Hgb Hct MCV MCH MCHC RDW Plt Count MPV Sodium Potassium Chloride Carbon Dioxide Anion Gap BUN Creatinine Est GFR (CKD-EPI)AfAm Est GFR (CKD-EPI)NonAf Random Glucose Calcium Total Bilirubin AST ALT Alkaline Phosphatase Total Protein Albumin Urine Color Yellow Urine Appearance Clear Urine pH 5.0 Ur Specific [place] 1.021 Urine Protein Negative Urine Glucose (UA) Negative Urine Ketones Negative Urine Blood Negative Urine Nitrite Negative Urine Bilirubin Negative Urine Urobilinogen 0.2 Ur Leukocyte Esterase Negative U Pathogenic Cast Auto No Result Required. RPR Titer A:CHRONIC PAIN PLAN;LIDOCAINE PATCH 5% TP APPLY DIRECTED ROBAXIN 500 MG PO TID
[2019-05-22] MEDS: LIDOCAINE 5% TOPICAL PATCH TP SCH (10:43)
[2019-05-22] MEDS: METHOCARBAMOL 500 MG TABLET PO PRN ×2 (11:14→21:13)
[2019-05-22] MEDS ORDERED: METHOCARBAMOL 500 MG TABLET PO SCH ×2 (14:00)
[2019-05-22] MEDS: QUEtiapine FUMARATE 100 MG TABLET (FP) PO SCH (21:13)
[2019-05-22] MEDS: LIDOCAINE PATCH REMOVAL MC SCH (21:14)
[2019-05-22] MEDS: THIAMINE HCL 100 MG TABLET (FP) PO SCH (21:15)
[2019-05-23] MEDS: IBUPROFEN 400 MG TABLET (FP) PO PRN ×2 (06:18→21:15)
[2019-05-23] MEDS: LIDOCAINE 5% TOPICAL PATCH TP SCH (09:39)
[2019-05-23] MEDS: NICOTINE 21 MG/24 HOURS TOPICAL PATCH TD SCH (09:40)
[2019-05-23] MEDS: PRENATAL VITAMINS W/ FOLIC ACID TABLET (FP) PO SCH (09:40)
[2019-05-23] MEDS: hydrOXYzine PAMOATE 50 MG CAPSULE (FP) PO PRN (09:41)
[2019-05-23] MEDS: ACETAMINOPHEN 325 MG TABLET (FP) PO PRN ×2 (09:42→14:15)
[2019-05-23] MEDS: METHOCARBAMOL 500 MG TABLET PO PRN ×2 (09:42→21:17)
[2019-05-23] MEDS: QUEtiapine FUMARATE 100 MG TABLET (FP) PO SCH (21:15)
[2019-05-23] MEDS: THIAMINE HCL 100 MG TABLET (FP) PO SCH (21:15)
[2019-05-23] MEDS: LIDOCAINE PATCH REMOVAL MC SCH (21:17)
[2019-05-24] MEDS: ACETAMINOPHEN 325 MG TABLET (FP) PO PRN ×2 (06:48→21:14)
[2019-05-24] MEDS: hydrOXYzine PAMOATE 50 MG CAPSULE (FP) PO PRN (09:17)
[2019-05-24] MEDS: IBUPROFEN 400 MG TABLET (FP) PO PRN (09:17)
[2019-05-24] MEDS: NICOTINE 21 MG/24 HOURS TOPICAL PATCH TD SCH (09:17)
[2019-05-24] MEDS: PRENATAL VITAMINS W/ FOLIC ACID TABLET (FP) PO SCH (09:18)
[2019-05-24] MEDS: LIDOCAINE 5% TOPICAL PATCH TP SCH (09:18)
[2019-05-24] MEDS: METHOCARBAMOL 500 MG TABLET PO PRN ×2 (09:20→21:14)
[2019-05-24] MEDS: QUEtiapine FUMARATE 100 MG TABLET (FP) PO SCH (21:13)
[2019-05-24] MEDS: THIAMINE HCL 100 MG TABLET (FP) PO SCH (21:13)
[2019-05-24] MEDS: LIDOCAINE PATCH REMOVAL MC SCH (21:15)
[2019-05-25] MEDS: ACETAMINOPHEN 325 MG TABLET (FP) PO PRN (06:33)
[2019-05-25] MEDS: LIDOCAINE 5% TOPICAL PATCH TP SCH (10:49)
[2019-05-25] MEDS: NICOTINE 21 MG/24 HOURS TOPICAL PATCH TD SCH (10:49)
[2019-05-25] MEDS: PRENATAL VITAMINS W/ FOLIC ACID TABLET (FP) PO SCH (10:49)
[2019-05-25] MEDS: IBUPROFEN 400 MG TABLET (FP) PO PRN ×2 (10:51→21:23)
--- NOTE | 2019-05-25 15:43 | PN ---
[facility] Progress Note Note: PT C/O BACK PAIN. PT IS ON ROBAXIN,LIDOCAINE PATCH AND MOTRIN FOR PAIN. Vital Signs - 24 hr 05/25/19 05/25/19 05/25/19 00:30 03:30 06:46 Temperature 97.3 F L Pulse Rate 75 Respiratory 18 18 18 Rate Blood Pressure 140/82 D/W PT WILL ADD ANALGESIC BALM AT HS.
[2019-05-25] MEDS: THIAMINE HCL 100 MG TABLET (FP) PO SCH (21:22)
[2019-05-25] MEDS: QUEtiapine FUMARATE 100 MG TABLET (FP) PO SCH (21:22)
[2019-05-25] MEDS: LIDOCAINE PATCH REMOVAL MC SCH (21:24)
[2019-05-25] MEDS: METHYL SALICYLATE/MENTHOL OINT 30 GM TUBE TP SCH (21:24)
[2019-05-26] MEDS: IBUPROFEN 400 MG TABLET (FP) PO PRN ×2 (06:48→21:19)
[2019-05-26] MEDS: LIDOCAINE 5% TOPICAL PATCH TP SCH (09:59)
[2019-05-26] MEDS: PRENATAL VITAMINS W/ FOLIC ACID TABLET (FP) PO SCH (10:01)
[2019-05-26] MEDS: NICOTINE 21 MG/24 HOURS TOPICAL PATCH TD SCH (10:01)
[2019-05-26] MEDS: ACETAMINOPHEN 325 MG TABLET (FP) PO PRN (10:03)
[2019-05-26] MEDS: QUEtiapine FUMARATE 100 MG TABLET (FP) PO SCH (21:18)
[2019-05-26] MEDS: THIAMINE HCL 100 MG TABLET (FP) PO SCH (21:18)
[2019-05-26] MEDS: LIDOCAINE PATCH REMOVAL MC SCH (21:19)
[2019-05-26] MEDS: METHYL SALICYLATE/MENTHOL OINT 30 GM TUBE TP SCH (21:20)
[2019-05-27 06:33] VITALS: BP 151/94; PULSE 71; TEMP 97.8
[2019-05-27] MEDS: ACETAMINOPHEN 325 MG TABLET (FP) PO PRN (06:33)
[2019-05-27] MEDS: METHOCARBAMOL 500 MG TABLET PO PRN (06:35)
[2019-05-27] MEDS: PRENATAL VITAMINS W/ FOLIC ACID TABLET (FP) PO SCH (09:56)
[2019-05-27] MEDS: LIDOCAINE 5% TOPICAL PATCH TP SCH (09:56)
[2019-05-27] MEDS: NICOTINE 21 MG/24 HOURS TOPICAL PATCH TD SCH (09:56)
--- NOTE | 2019-05-27 15:06 | PN ---
[facility] Progress Note (SOAP) Subjective: patient is leaving today because he needs to go back to work. Objective: A+O x3, No neurological deficits noted, heart sounds regular, lungs clear, abd soft, non-tender, non-distended, +BS, skin clear. 05/27/19 15:04 CBC, BMP 05/20/19 14:05 05/20/19 14:05 Vital Signs (72 hours) 05/25/19 05/25/19 05/25/19 00:30 03:30 06:46 Temperature 97.3 F L Pulse Rate 75 Respiratory 18 18 18 Rate Blood Pressure 140/82 05/26/19 05/26/19 05/26/19 00:30 03:30 06:45 Temperature 97.4 F L Pulse Rate 79 Respiratory 18 18 18 Rate Blood Pressure 150/90 05/27/19 05/27/19 05/27/19 00:30 03:30 06:32 Temperature 97.8 F Pulse Rate 71 Respiratory 18 18 18 Rate Blood Pressure 151/94 Assessment: Medically stable for discharge Discharge Dx: Cocaine dependence. ETOH Dependence. 05/27/19 15:06 05/27/19 15:06 Plan: Patient will go to [facility] program. Does not have a primary care provider. Strongly urged to find a provider near his work or program. Patient does not need prescriptions transmitted at this time.
--- NOTE | 2019-05-27 15:12 | PN ---
[facility] Progress Note Note: Psychiatry Attending's note : Discharged today. Nurse called MD for script : seroquel 100 mg po hs tab # 30. Chart reviewed. Mr Vu is known to [employer]. Medication verified. Script sent electronically to [facility]. Side effects/benefits discussed with the patient. Verbal consent granted to MD. Stable mental status.
== END 2019-05-27 15:30 | disposition left against medical advice (07) | DRG 770 ==
LOC: YASAS 11:15 → Y5N 13:42
PROVIDERS: ADMIT Surgery; ATTEND Neuromusculoskeletal Medicine & OMM
PROC: HZ42ZZZ Group Counseling for Substance Abuse Treatment, Cognitive-Behavioral (ICD-10-PCS; principal; 2019-05-20)
DX: F10.20 Alcohol dependence, uncomplicated (principal); F13.20 Sedative, hypnotic or anxiolytic dependence, uncomplicated; F14.20 Cocaine dependence, uncomplicated; F17.210 Nicotine dependence, cigarettes, uncomplicated; F19.282 Other psychoactive substance dependence with psychoactive substance-induced sleep disorder; F19.24 Other psychoactive substance dependence with psychoactive substance-induced mood disorder; F31.9 Bipolar disorder, unspecified; G47.00 Insomnia, unspecified; M54.5 Low back pain; G89.29 Other chronic pain; R76.11 Nonspecific reaction to tuberculin skin test without active tuberculosis; Z87.81 Personal history of (healed) traumatic fracture
CPT/HCPCS: 36415; 80053; 81003; 85027; 86593

== ENCOUNTER 2021-01-07 12:29 | Inpatient (IN) | payer OTHER ==
[2021-01-07 14:16] VITALS: BMI 28.3
[2021-01-07] MEDS ORDERED: chlordiazePOXIDE HCL 25 MG CAPSULE PO PRN (14:17)
[2021-01-07] MEDS ORDERED: ONDANSETRON *ODT* 4 MG TABLET SL PRN (14:18)
[2021-01-07] MEDS ORDERED: NICOTINE POLACRILEX 2 MG GUM BUC PRN (14:18)
[2021-01-07] MEDS ORDERED: BISMUTH SUBSALICYLATE 524 MG/30 ML UD PO PRN (14:18)
[2021-01-07] MEDS ORDERED: MAGNESIUM HYDROX 2400MG/30ML ORAL SUSPENSION 30 ML CUP PO PRN (14:18)
[2021-01-07] MEDS ORDERED: MENTHOL/PHENOL 1 EACH UD MM PRN (14:18)
[2021-01-07] MEDS ORDERED: ACETAMINOPHEN 325 MG TABLET (FP) PO PRN ×2 (14:18)
[2021-01-07] MEDS ORDERED: IBUPROFEN 400 MG TABLET (FP) PO PRN (14:18)
[2021-01-07] MEDS ORDERED: MAGNESIUM CITRATE 300 ML BOTTLE PO PRN (14:18)
[2021-01-07] MEDS ORDERED: METHOCARBAMOL 500 MG TABLET PO PRN (14:18)
[2021-01-07] MEDS ORDERED: MAG HYDROX/AL HYDROX/SIMETH 30 ML UNIT-DOSE CUP PO PRN (14:18)
[2021-01-07] MEDS: NICOTINE 21 MG/24 HOURS TOPICAL PATCH TD SCH (15:33)
[2021-01-07] MEDS: chlordiazePOXIDE HCL 25 MG CAPSULE PO SCH ×2 (18:17→22:15)
[2021-01-07] MEDS: hydrOXYzine PAMOATE 25 MG CAPSULE (FP) PO SCH ×2 (18:18→22:15)
[2021-01-07] MEDS ORDERED: QUEtiapine FUMARATE 100 MG TABLET (FP) PO ONE (22:00)
[2021-01-07] MEDS: MELATONIN 5 MG TABLETS PO SCH (22:16)
[2021-01-07] MEDS: THIAMINE HCL 100 MG TABLET (FP) PO SCH (22:18)
[2021-01-08] MEDS: chlordiazePOXIDE HCL 25 MG CAPSULE PO SCH ×4 (06:42→23:00)
[2021-01-08] MEDS: hydrOXYzine PAMOATE 25 MG CAPSULE (FP) PO SCH ×5 (06:42→22:59)
[2021-01-08] MEDS: NICOTINE 21 MG/24 HOURS TOPICAL PATCH TD SCH (10:27)
[2021-01-08] MEDS: PRENATAL VITAMINS W/ FOLIC ACID TABLET (FP) PO SCH (10:27)
[2021-01-08] MEDS ORDERED: cloNIDine HCL 0.1 MG TABLET PO PRN (11:41)
[2021-01-08 12:50] LABS: HEMATOCRIT 39.7 % (35.4-49); HEMOGLOBIN 13.5 GM/dL (11.7-16.9); MCH 30.5 pg (25.7-33.7); MEAN CELL VOLUME 89.7 fl (80-96); PLATELET COUNT 219 K/MM3 (134-434); RBC 4.43 M/mm3 (4.00-5.60); RDW 14.2 % (11.9-15.9); WHITE BLOOD COUNT 4.8 K/mm3 (4.0-10.0)
[2021-01-08 12:51] LABS: POTASSIUM 4.2 mmol/L (3.5-5.1)
[2021-01-08 13:02] LABS: CALCIUM 8.9 mg/dL (8.5-10.1)
[2021-01-08 13:03] LABS: ALBUMIN 3.2 g/dl (3.4-5.0)
[2021-01-08 13:04] LABS: BLOOD UREA NITROGEN 13.6 mg/dL (7-18)
[2021-01-08 13:06] LABS: CREATININE 1.3 mg/dL (0.55-1.3)
[2021-01-08 13:07] LABS: BILIRUBIN,TOTAL 0.4 mg/dL (0.2-1); TOT PROT 6.3 g/dl (6.4-8.2)
[2021-01-08] MEDS: QUEtiapine FUMARATE 100 MG TABLET (FP) PO SCH (22:59)
[2021-01-08] MEDS: MELATONIN 5 MG TABLETS PO SCH (22:59)
[2021-01-08] MEDS: THIAMINE HCL 100 MG TABLET (FP) PO SCH (22:59)
[2021-01-09] MEDS: chlordiazePOXIDE HCL 25 MG CAPSULE PO SCH ×4 (07:26→22:16)
[2021-01-09] MEDS: hydrOXYzine PAMOATE 25 MG CAPSULE (FP) PO SCH ×5 (07:26→22:16)
[2021-01-09] MEDS: PRENATAL VITAMINS W/ FOLIC ACID TABLET (FP) PO SCH (11:37)
[2021-01-09] MEDS: NICOTINE 21 MG/24 HOURS TOPICAL PATCH TD SCH (11:37)
[2021-01-09] MEDS: MELATONIN 5 MG TABLETS PO SCH (22:16)
[2021-01-09] MEDS: THIAMINE HCL 100 MG TABLET (FP) PO SCH (22:16)
[2021-01-09] MEDS: QUEtiapine FUMARATE 100 MG TABLET (FP) PO SCH (22:17)
[2021-01-10] MEDS ORDERED: chlordiazePOXIDE HCL 10 MG CAPSULE PO PRN
[2021-01-10] MEDS: hydrOXYzine PAMOATE 25 MG CAPSULE (FP) PO SCH ×5 (06:42→22:54)
[2021-01-10] MEDS: chlordiazePOXIDE HCL 10 MG CAPSULE PO SCH ×4 (06:45→22:54)
[2021-01-10] MEDS: PRENATAL VITAMINS W/ FOLIC ACID TABLET (FP) PO SCH (11:08)
[2021-01-10] MEDS: NICOTINE 21 MG/24 HOURS TOPICAL PATCH TD SCH (11:09)
[2021-01-10] MEDS: QUEtiapine FUMARATE 100 MG TABLET (FP) PO SCH (22:54)
[2021-01-10] MEDS: THIAMINE HCL 100 MG TABLET (FP) PO SCH (22:54)
[2021-01-10] MEDS: MELATONIN 5 MG TABLETS PO SCH (22:55)
[2021-01-11] MEDS: chlordiazePOXIDE HCL 10 MG CAPSULE PO SCH ×2 (06:58→19:33)
[2021-01-11] MEDS: hydrOXYzine PAMOATE 25 MG CAPSULE (FP) PO SCH ×5 (06:58→21:29)
[2021-01-11] MEDS: PRENATAL VITAMINS W/ FOLIC ACID TABLET (FP) PO SCH (11:13)
[2021-01-11] MEDS: NICOTINE 21 MG/24 HOURS TOPICAL PATCH TD SCH (11:13)
[2021-01-11] MEDS: MELATONIN 5 MG TABLETS PO SCH (21:29)
[2021-01-11] MEDS: QUEtiapine FUMARATE 100 MG TABLET (FP) PO SCH (21:29)
[2021-01-11] MEDS: THIAMINE HCL 100 MG TABLET (FP) PO SCH (21:30)
[2021-01-12] MEDS ORDERED: chlordiazePOXIDE HCL 10 MG CAPSULE PO ONE (05:00)
[2021-01-12] MEDS: hydrOXYzine PAMOATE 25 MG CAPSULE (FP) PO SCH (06:30)
[2021-01-12 09:46] VITALS: BP 150/78; PULSE 87; TEMP 96.9
== END 2021-01-12 10:50 | disposition home or self-care (01) | DRG 774 ==
LOC: YASAS 12:29 → Y6N 14:12
PROVIDERS: ADMIT Allergy & Immunology; ATTEND Allergy & Immunology
PROC: HZ2ZZZZ Detoxification Services for Substance Abuse Treatment (ICD-10-PCS; principal; 2021-01-07)
DX: F10.230 Alcohol dependence with withdrawal, uncomplicated (principal); F14.20 Cocaine dependence, uncomplicated; F13.10 Sedative, hypnotic or anxiolytic abuse, uncomplicated; F17.210 Nicotine dependence, cigarettes, uncomplicated; F19.282 Other psychoactive substance dependence with psychoactive substance-induced sleep disorder; F39 Unspecified mood [affective] disorder; G47.00 Insomnia, unspecified; R76.11 Nonspecific reaction to tuberculin skin test without active tuberculosis; Z87.81 Personal history of (healed) traumatic fracture; Z56.0 Unemployment, unspecified
CPT/HCPCS: 36415; 71046-TC-FY; 80053; 85027; 86780; C9803; U0003

== ENCOUNTER 2021-02-25 12:45 | Inpatient (IN) | payer OTHER ==
[2021-02-25 13:02] VITALS: BMI 27.9
[2021-02-25] MEDS ORDERED: MAG HYDROX/AL HYDROX/SIMETH 30 ML UNIT-DOSE CUP PO PRN (13:49)
[2021-02-25] MEDS ORDERED: MAGNESIUM HYDROX 2400MG/30ML ORAL SUSPENSION 30 ML CUP PO PRN (13:49)
[2021-02-25] MEDS ORDERED: MENTHOL/PHENOL 1 EACH UD MM PRN (13:49)
[2021-02-25] MEDS ORDERED: IBUPROFEN 400 MG TABLET (FP) PO PRN (13:49)
[2021-02-25] MEDS ORDERED: hydrOXYzine PAMOATE 25 MG CAPSULE (FP) PO PRN (13:49)
[2021-02-25] MEDS ORDERED: ACETAMINOPHEN 325 MG TABLET (FP) PO PRN ×2 (13:49)
[2021-02-25] MEDS ORDERED: BISMUTH SUBSALICYLATE 524 MG/30 ML UD PO PRN (13:49)
[2021-02-25] MEDS ORDERED: METHOCARBAMOL 500 MG TABLET PO PRN (13:49)
[2021-02-25] MEDS ORDERED: chlordiazePOXIDE HCL 25 MG CAPSULE PO PRN (13:49)
[2021-02-25] MEDS ORDERED: NICOTINE POLACRILEX 2 MG GUM BUC PRN (13:49)
[2021-02-25] MEDS ORDERED: MAGNESIUM CITRATE 300 ML BOTTLE PO PRN (13:49)
[2021-02-25] MEDS ORDERED: ONDANSETRON *ODT* 4 MG TABLET SL PRN (13:49)
[2021-02-25] MEDS: NICOTINE 14 MG/24 HOURS TOPICAL PATCH TD SCH (14:41)
[2021-02-25] MEDS: chlordiazePOXIDE HCL 25 MG CAPSULE PO SCH ×2 (18:09→22:28)
[2021-02-25] MEDS: THIAMINE HCL 100 MG TABLET (FP) PO SCH (22:27)
[2021-02-25] MEDS: MELATONIN 5 MG TABLETS PO SCH (22:29)
[2021-02-25] MEDS ORDERED: QUEtiapine FUMARATE 100 MG TABLET (FP) PO ONE (22:34)
[2021-02-26] MEDS: chlordiazePOXIDE HCL 25 MG CAPSULE PO SCH ×4 (05:56→22:34)
[2021-02-26 09:22] LABS: HEMATOCRIT 39.5 % (35.4-49); HEMOGLOBIN 13.1 GM/dL (11.7-16.9); MCH 29.7 pg (25.7-33.7); MCHC 33.3 g/dl (32.0-35.9); MEAN CELL VOLUME 89.2 fl (80-96); MEAN PLT VOLUME 9.2 fl (7.5-11.1); PLATELET COUNT 259 K/MM3 (134-434); RBC 4.42 M/mm3 (4.00-5.60); RDW 14.8 % (11.9-15.9); WHITE BLOOD COUNT 5.7 K/mm3 (4.0-10.0)
[2021-02-26 09:28] LABS: POTASSIUM 3.7 mmol/L (3.5-5.1)
[2021-02-26 09:32] LABS: CALCIUM 9.6 mg/dL (8.5-10.1)
[2021-02-26 09:33] LABS: ALBUMIN 3.4 g/dl (3.4-5.0); BLOOD UREA NITROGEN 19.4 mg/dL (7-18)
[2021-02-26 09:36] LABS: CREATININE 1.4 mg/dL (0.55-1.3)
[2021-02-26 09:37] LABS: BILIRUBIN,TOTAL 0.5 mg/dL (0.2-1)
[2021-02-26] MEDS: PRENATAL VITAMINS W/ FOLIC ACID TABLET (FP) PO SCH (10:07)
[2021-02-26] MEDS: NICOTINE 14 MG/24 HOURS TOPICAL PATCH TD SCH (10:08)
[2021-02-26] MEDS ORDERED: QUEtiapine FUMARATE 100 MG TABLET (FP) PO SCH (22:00)
[2021-02-26] MEDS: THIAMINE HCL 100 MG TABLET (FP) PO SCH (22:34)
[2021-02-26] MEDS: MELATONIN 5 MG TABLETS PO SCH (22:34)
[2021-02-27] MEDS: chlordiazePOXIDE HCL 25 MG CAPSULE PO SCH ×2 (05:24→10:20)
[2021-02-27 05:51] VITALS: PULSE 60
[2021-02-27 09:19] VITALS: BP 130/82; TEMP 97.3
[2021-02-27] MEDS: NICOTINE 14 MG/24 HOURS TOPICAL PATCH TD SCH (10:20)
[2021-02-27] MEDS: PRENATAL VITAMINS W/ FOLIC ACID TABLET (FP) PO SCH (10:20)
[2021-02-28] MEDS ORDERED: chlordiazePOXIDE HCL 10 MG CAPSULE PO PRN
[2021-02-28] MEDS ORDERED: chlordiazePOXIDE HCL 10 MG CAPSULE PO SCH (05:00)
[2021-03-01] MEDS ORDERED: chlordiazePOXIDE HCL 10 MG CAPSULE PO SCH (05:00)
[2021-03-02] MEDS ORDERED: chlordiazePOXIDE HCL 10 MG CAPSULE PO ONE (05:00)
== END 2021-02-27 11:02 | disposition left against medical advice (07) | DRG 770 ==
LOC: YASAS 12:45 → Y3N 13:26
PROVIDERS: ADMIT Allergy & Immunology; ATTEND Allergy & Immunology
PROC: HZ2ZZZZ Detoxification Services for Substance Abuse Treatment (ICD-10-PCS; principal; 2021-02-25)
DX: F10.230 Alcohol dependence with withdrawal, uncomplicated (principal); F14.20 Cocaine dependence, uncomplicated; F17.210 Nicotine dependence, cigarettes, uncomplicated; F39 Unspecified mood [affective] disorder; F19.280 Other psychoactive substance dependence with psychoactive substance-induced anxiety disorder; F19.282 Other psychoactive substance dependence with psychoactive substance-induced sleep disorder; G47.00 Insomnia, unspecified; R79.89 Other specified abnormal findings of blood chemistry; R76.11 Nonspecific reaction to tuberculin skin test without active tuberculosis; Z87.81 Personal history of (healed) traumatic fracture; Z98.890 Other specified postprocedural states
CPT/HCPCS: 36415; 80053; 85027; 86780; C9803; U0003; U0005

== ENCOUNTER 2021-07-10 09:30 | Inpatient (IN) | payer OTHER ==
[2021-07-10 10:44] VITALS: BMI 27.2
[2021-07-10] MEDS ORDERED: MAGNESIUM CITRATE 300 ML BOTTLE PO PRN (11:12)
[2021-07-10] MEDS ORDERED: MENTHOL/PHENOL 1 EACH UD MM PRN (11:12)
[2021-07-10] MEDS ORDERED: BISMUTH SUBSALICYLATE 262 MG/15 ML BTL PO PRN (11:12)
[2021-07-10] MEDS ORDERED: MAG HYDROX/AL HYDROX/SIMETH 30 ML UNIT-DOSE CUP PO PRN (11:12)
[2021-07-10] MEDS ORDERED: ACETAMINOPHEN 325 MG TABLET (FP) PO PRN ×2 (11:12)
[2021-07-10] MEDS ORDERED: ONDANSETRON *ODT* 4 MG TABLET SL PRN (11:12)
[2021-07-10] MEDS ORDERED: MAGNESIUM HYDROX 2400MG/30ML ORAL SUSPENSION 30 ML CUP PO PRN (11:12)
[2021-07-10] MEDS ORDERED: diazePAM 5 MG TABLET PO PRN (11:12)
[2021-07-10] MEDS ORDERED: IBUPROFEN 400 MG TABLET (FP) PO PRN (11:12)
[2021-07-10] MEDS ORDERED: NICOTINE 10 MG CARTRIDGE (INHALER) IH PRN (11:12)
[2021-07-10] MEDS: PRENATAL VITAMINS W/ FOLIC ACID TABLET (FP) PO SCH (12:22)
[2021-07-10] MEDS: NICOTINE 14 MG/24 HOURS TOPICAL PATCH TD SCH (12:22)
[2021-07-10] MEDS: diazePAM 5 MG TABLET PO SCH ×3 (12:23→22:45)
[2021-07-10] MEDS: METHOCARBAMOL 500 MG TABLET PO PRN ×2 (12:23→22:46)
[2021-07-10] MEDS: hydrOXYzine PAMOATE 25 MG CAPSULE (FP) PO PRN ×2 (12:23→22:46)
[2021-07-10] MEDS ORDERED: hydrOXYzine PAMOATE 25 MG CAPSULE (FP) PO SCH (14:00)
[2021-07-10 15:07] LABS: HEMATOCRIT 42.8 % (35.4-49); HEMOGLOBIN 14.8 GM/dL (11.7-16.9); MCH 30.1 pg (25.7-33.7); MCHC 34.6 g/dl (32.0-35.9); MEAN CELL VOLUME 87.1 fl (80-96); PLATELET COUNT 252 10^3/uL (134-434); RBC 4.92 M/mm3 (4.00-5.60); RDW 14.5 % (11.9-15.9); WHITE BLOOD COUNT 6.6 K/mm3 (4.0-10.0)
[2021-07-10 15:13] LABS: CALCIUM 9.4 mg/dL (8.5-10.1)
[2021-07-10 15:14] LABS: ALBUMIN 4.4 g/dl (3.4-5.0); BLOOD UREA NITROGEN 32.1 mg/dL (7-18)
[2021-07-10 15:17] LABS: CREATININE 1.4 mg/dL (0.55-1.3)
[2021-07-10 15:19] LABS: BILIRUBIN,TOTAL 0.8 mg/dL (0.2-1); TOT PROT 8.3 g/dl (6.4-8.2)
[2021-07-10] MEDS: THIAMINE HCL 100 MG TABLET (FP) PO SCH (22:45)
[2021-07-10] MEDS: MELATONIN 5 MG TABLETS PO SCH (22:45)
[2021-07-11] MEDS: diazePAM 5 MG TABLET PO SCH ×5 (07:26→22:32)
[2021-07-11] MEDS: PRENATAL VITAMINS W/ FOLIC ACID TABLET (FP) PO SCH (10:40)
[2021-07-11] MEDS: NICOTINE 14 MG/24 HOURS TOPICAL PATCH TD SCH (10:40)
[2021-07-11] MEDS: QUEtiapine FUMARATE 100 MG TABLET (FP) PO SCH (22:32)
[2021-07-11] MEDS: MELATONIN 5 MG TABLETS PO SCH (22:32)
[2021-07-11] MEDS: THIAMINE HCL 100 MG TABLET (FP) PO SCH (22:32)
[2021-07-11] MEDS ORDERED: MASKS NR ONE (22:35)
[2021-07-12] MEDS: diazePAM 5 MG TABLET PO SCH ×3 (06:36→22:15)
[2021-07-12] MEDS: PRENATAL VITAMINS W/ FOLIC ACID TABLET (FP) PO SCH (09:55)
[2021-07-12] MEDS: NICOTINE 14 MG/24 HOURS TOPICAL PATCH TD SCH (09:55)
[2021-07-12] MEDS: MELATONIN 5 MG TABLETS PO SCH (22:14)
[2021-07-12] MEDS: QUEtiapine FUMARATE 100 MG TABLET (FP) PO SCH (22:14)
[2021-07-12] MEDS: THIAMINE HCL 100 MG TABLET (FP) PO SCH (22:14)
[2021-07-13] MEDS: diazePAM 5 MG TABLET PO SCH ×2 (07:27→18:39)
[2021-07-13] MEDS: PRENATAL VITAMINS W/ FOLIC ACID TABLET (FP) PO SCH (10:59)
[2021-07-13] MEDS: NICOTINE 14 MG/24 HOURS TOPICAL PATCH TD SCH (10:59)
[2021-07-13] MEDS: amLODIPine BESYLATE 5 MG TABLET (FP) PO SCH (13:18)
[2021-07-13] MEDS ORDERED: cloNIDine HCL 0.1 MG TABLET PO ONE (18:25)
[2021-07-13] MEDS: MELATONIN 5 MG TABLETS PO SCH (22:50)
[2021-07-13] MEDS: QUEtiapine FUMARATE 100 MG TABLET (FP) PO SCH (22:51)
[2021-07-13] MEDS: THIAMINE HCL 100 MG TABLET (FP) PO SCH (22:51)
[2021-07-14] MEDS ORDERED: diazePAM 5 MG TABLET PO ONE (06:00)
[2021-07-14 09:07] VITALS: BP 122/68; PULSE 72; TEMP 97.1
[2021-07-14] MEDS: PRENATAL VITAMINS W/ FOLIC ACID TABLET (FP) PO SCH (09:31)
[2021-07-14] MEDS: NICOTINE 14 MG/24 HOURS TOPICAL PATCH TD SCH (09:31)
[2021-07-14] MEDS: amLODIPine BESYLATE 5 MG TABLET (FP) PO SCH (09:31)
== END 2021-07-14 11:25 | disposition home or self-care (01) | DRG 774 ==
LOC: YASAS 09:30 → Y3N 11:39
PROVIDERS: ADMIT Allergy & Immunology; ATTEND Allergy & Immunology
PROC: HZ2ZZZZ Detoxification Services for Substance Abuse Treatment (ICD-10-PCS; principal; 2021-07-10)
DX: F10.230 Alcohol dependence with withdrawal, uncomplicated (principal); F14.20 Cocaine dependence, uncomplicated; F17.210 Nicotine dependence, cigarettes, uncomplicated; F19.282 Other psychoactive substance dependence with psychoactive substance-induced sleep disorder; F19.280 Other psychoactive substance dependence with psychoactive substance-induced anxiety disorder; F19.24 Other psychoactive substance dependence with psychoactive substance-induced mood disorder; I10 Essential (primary) hypertension; R76.11 Nonspecific reaction to tuberculin skin test without active tuberculosis
CPT/HCPCS: 36415; 80053; 85027; 86780; C9803; J0735; U0003; U0005

== ENCOUNTER 2021-09-12 12:09 | Inpatient (IN) | payer OTHER ==
[2021-09-12] MEDS ORDERED: NICOTINE 10 MG CARTRIDGE (INHALER) IH PRN (15:35)
[2021-09-12] MEDS ORDERED: diazePAM 5 MG TABLET PO PRN (15:35)
[2021-09-12] MEDS ORDERED: MAGNESIUM CITRATE 300 ML BOTTLE PO PRN (15:35)
[2021-09-12] MEDS ORDERED: MENTHOL/PHENOL 1 EACH UD MM PRN (15:35)
[2021-09-12] MEDS ORDERED: MAGNESIUM HYDROX 2400MG/30ML ORAL SUSPENSION 30 ML CUP PO PRN (15:35)
[2021-09-12] MEDS ORDERED: ONDANSETRON *ODT* 4 MG TABLET SL PRN (15:35)
[2021-09-12] MEDS ORDERED: BISMUTH SUBSALICYLATE 524 MG/30 ML PO PRN (15:35)
[2021-09-12] MEDS ORDERED: MAG HYDROX/AL HYDROX/SIMETH 30 ML UNIT-DOSE CUP PO PRN (15:35)
[2021-09-12] MEDS ORDERED: ACETAMINOPHEN 325 MG TABLET (FP) PO PRN ×2 (15:35)
[2021-09-12 17:19] VITALS: BMI 27.5
[2021-09-12] MEDS: hydrOXYzine PAMOATE 25 MG CAPSULE (FP) PO SCH ×2 (18:16→22:26)
[2021-09-12] MEDS: diazePAM 5 MG TABLET PO SCH ×3 (18:17→22:26)
[2021-09-12] MEDS: NICOTINE 7 MG/24 HOURS TOPICAL PATCH TD SCH (18:18)
[2021-09-12] MEDS: PRENATAL VITAMINS W/ FOLIC ACID TABLET (FP) PO SCH (18:19)
[2021-09-12] MEDS: THIAMINE HCL 100 MG TABLET (FP) PO SCH (22:26)
[2021-09-12] MEDS: MELATONIN 5 MG TABLETS PO SCH (22:26)
[2021-09-13] MEDS: diazePAM 5 MG TABLET PO SCH ×4 (08:24→23:20)
[2021-09-13] MEDS: hydrOXYzine PAMOATE 25 MG CAPSULE (FP) PO SCH ×5 (08:24→23:21)
[2021-09-13] MEDS: IBUPROFEN 400 MG TABLET (FP) PO PRN (10:43)
[2021-09-13] MEDS: NICOTINE 7 MG/24 HOURS TOPICAL PATCH TD SCH (10:44)
[2021-09-13] MEDS: PRENATAL VITAMINS W/ FOLIC ACID TABLET (FP) PO SCH (10:44)
[2021-09-13] MEDS: METHOCARBAMOL 500 MG TABLET PO PRN (10:44)
[2021-09-13 10:53] LABS: HEMATOCRIT 40.1 % (35.4-49); HEMOGLOBIN 13.3 GM/dL (11.7-16.9); MCH 29.9 pg (25.7-33.7); MCHC 33.3 g/dl (32.0-35.9); MEAN PLT VOLUME 9.2 fl (7.5-11.1); PLATELET COUNT 245 10^3/uL (134-434); RBC 4.46 M/mm3 (4.00-5.60); RDW 14.2 % (11.9-15.9); WHITE BLOOD COUNT 4.4 K/mm3 (4.0-10.0)
[2021-09-13 14:53] LABS: CALCIUM 9.3 mg/dL (8.5-10.1)
[2021-09-13 14:54] LABS: BLOOD UREA NITROGEN 16.1 mg/dL (7-18)
[2021-09-13 14:59] LABS: BILIRUBIN,TOTAL 0.2 mg/dL (0.2-1); TOT PROT 6.3 g/dl (6.4-8.2)
[2021-09-13] MEDS: QUEtiapine FUMARATE 100 MG TABLET (FP) PO SCH ×2 (23:20→23:34)
[2021-09-13] MEDS: MELATONIN 5 MG TABLETS PO SCH ×2 (23:20→23:36)
[2021-09-13] MEDS: THIAMINE HCL 100 MG TABLET (FP) PO SCH (23:21)
[2021-09-14] MEDS: diazePAM 5 MG TABLET PO SCH ×3 (07:01→22:53)
[2021-09-14] MEDS: hydrOXYzine PAMOATE 25 MG CAPSULE (FP) PO SCH ×5 (07:01→22:52)
[2021-09-14] MEDS: METHOCARBAMOL 500 MG TABLET PO PRN ×2 (07:28→22:58)
[2021-09-14] MEDS: IBUPROFEN 400 MG TABLET (FP) PO PRN (07:28)
[2021-09-14] MEDS: PRENATAL VITAMINS W/ FOLIC ACID TABLET (FP) PO SCH (10:09)
[2021-09-14] MEDS: NICOTINE 7 MG/24 HOURS TOPICAL PATCH TD SCH (10:09)
[2021-09-14] MEDS: THIAMINE HCL 100 MG TABLET (FP) PO SCH (22:52)
[2021-09-14] MEDS: QUEtiapine FUMARATE 100 MG TABLET (FP) PO SCH (22:52)
[2021-09-14] MEDS: MELATONIN 5 MG TABLETS PO SCH (22:52)
[2021-09-15] MEDS: hydrOXYzine PAMOATE 25 MG CAPSULE (FP) PO SCH ×5 (06:25→22:17)
[2021-09-15] MEDS: IBUPROFEN 400 MG TABLET (FP) PO PRN ×2 (06:26→18:09)
[2021-09-15] MEDS: diazePAM 5 MG TABLET PO SCH ×2 (06:31→18:08)
[2021-09-15] MEDS: NICOTINE 7 MG/24 HOURS TOPICAL PATCH TD SCH (11:10)
[2021-09-15] MEDS: PRENATAL VITAMINS W/ FOLIC ACID TABLET (FP) PO SCH (11:10)
[2021-09-15] MEDS: THIAMINE HCL 100 MG TABLET (FP) PO SCH (22:17)
[2021-09-15] MEDS: MELATONIN 5 MG TABLETS PO SCH (22:17)
[2021-09-15] MEDS: QUEtiapine FUMARATE 100 MG TABLET (FP) PO SCH (22:17)
[2021-09-15] MEDS: METHOCARBAMOL 500 MG TABLET PO PRN (22:17)
[2021-09-16] MEDS ORDERED: diazePAM 5 MG TABLET PO ONE (06:00)
[2021-09-16] MEDS: hydrOXYzine PAMOATE 25 MG CAPSULE (FP) PO SCH ×4 (07:28→17:34)
[2021-09-16] MEDS: PRENATAL VITAMINS W/ FOLIC ACID TABLET (FP) PO SCH (11:32)
[2021-09-16] MEDS: NICOTINE 7 MG/24 HOURS TOPICAL PATCH TD SCH (11:32)
[2021-09-16 17:32] VITALS: BP 145/97; PULSE 76; TEMP 97.1
== END 2021-09-16 20:00 | disposition other institution (70) | DRG 774 ==
LOC: YASAS 12:09 → Y3N 17:23
PROVIDERS: ADMIT Allergy & Immunology; ATTEND Allergy & Immunology
PROC: HZ2ZZZZ Detoxification Services for Substance Abuse Treatment (ICD-10-PCS; principal; 2021-09-12)
DX: F10.230 Alcohol dependence with withdrawal, uncomplicated (principal); F14.20 Cocaine dependence, uncomplicated; F17.210 Nicotine dependence, cigarettes, uncomplicated; F19.282 Other psychoactive substance dependence with psychoactive substance-induced sleep disorder; F19.24 Other psychoactive substance dependence with psychoactive substance-induced mood disorder; F41.9 Anxiety disorder, unspecified; F32.9 Major depressive disorder, single episode, unspecified; G47.00 Insomnia, unspecified; Z86.11 Personal history of tuberculosis; Z56.0 Unemployment, unspecified
CPT/HCPCS: 36415; 80053; 85027; 86780; C9803; U0003; U0005

== ENCOUNTER 2021-09-16 20:39 | Inpatient (IN) | payer OTHER ==
[2021-09-16] MEDS ORDERED: MAG HYDROX/AL HYDROX/SIMETH 30 ML UNIT-DOSE CUP PO PRN (21:57)
[2021-09-16] MEDS ORDERED: LOPERAMIDE HCL 2 MG CAPSULE PO PRN (21:57)
[2021-09-16] MEDS ORDERED: MAGNESIUM HYDROX 2400MG/30ML ORAL SUSPENSION 30 ML CUP PO PRN (21:57)
[2021-09-16] MEDS ORDERED: P-EPHED 60MG/TRIPROLIDI 2.5MG TABLET PO PRN (21:57)
[2021-09-16] MEDS ORDERED: MAGNESIUM CITRATE 300 ML BOTTLE PO PRN (21:57)
[2021-09-16] MEDS ORDERED: guaiFENesin 200 MG/10 ML 10 ML UNIT-DOSE CUPS PO PRN (21:57)
[2021-09-16] MEDS ORDERED: MENTHOL/PHENOL 1 EACH UD MM PRN (21:57)
[2021-09-16] MEDS ORDERED: ACETAMINOPHEN 325 MG TABLET (FP) PO PRN (21:57)
[2021-09-16] MEDS ORDERED: NICOTINE POLACRILEX 2 MG GUM BUC PRN (21:57)
[2021-09-16] MEDS ORDERED: QUEtiapine FUMARATE 100 MG TABLET (FP) PO ONE (22:02)
[2021-09-16] MEDS: THIAMINE HCL 100 MG TABLET (FP) PO SCH (22:35)
[2021-09-16] MEDS: MELATONIN 5 MG TABLETS PO SCH (22:35)
[2021-09-16] MEDS: IBUPROFEN 400 MG TABLET (FP) PO PRN (22:36)
[2021-09-17] MEDS: PRENATAL VITAMINS W/ FOLIC ACID TABLET (FP) PO SCH (10:16)
[2021-09-17] MEDS: NICOTINE 14 MG/24 HOURS TOPICAL PATCH TD SCH (10:16)
[2021-09-17] MEDS: IBUPROFEN 400 MG TABLET (FP) PO PRN (21:17)
[2021-09-17] MEDS: THIAMINE HCL 100 MG TABLET (FP) PO SCH (21:17)
[2021-09-17] MEDS: MELATONIN 5 MG TABLETS PO SCH (21:17)
[2021-09-17] MEDS: QUEtiapine FUMARATE 100 MG TABLET (FP) PO SCH (21:17)
[2021-09-18 06:47] VITALS: BP 147/101; PULSE 86; TEMP 98.1
[2021-09-18] MEDS ORDERED: METHOCARBAMOL 500 MG TABLET PO PRN (10:05)
[2021-09-18] MEDS: PRENATAL VITAMINS W/ FOLIC ACID TABLET (FP) PO SCH (10:28)
[2021-09-18] MEDS: NICOTINE 14 MG/24 HOURS TOPICAL PATCH TD SCH (10:28)
[2021-09-18] MEDS: MELATONIN 5 MG TABLETS PO SCH (21:21)
[2021-09-18] MEDS: QUEtiapine FUMARATE 100 MG TABLET (FP) PO SCH (21:21)
[2021-09-18] MEDS: THIAMINE HCL 100 MG TABLET (FP) PO SCH (21:21)
[2021-09-19] MEDS: PRENATAL VITAMINS W/ FOLIC ACID TABLET (FP) PO SCH (10:31)
[2021-09-19] MEDS: NICOTINE 14 MG/24 HOURS TOPICAL PATCH TD SCH (10:31)
[2021-09-19] MEDS: QUEtiapine FUMARATE 100 MG TABLET (FP) PO SCH (21:13)
[2021-09-19] MEDS: MELATONIN 5 MG TABLETS PO SCH (21:14)
[2021-09-19] MEDS: THIAMINE HCL 100 MG TABLET (FP) PO SCH (21:14)
== END 2021-09-20 09:21 | disposition home or self-care (01) | DRG 772 ==
LOC: YASAS 20:39 → Y3W 20:40
PROVIDERS: ADMIT Allergy & Immunology; ATTEND Allergy & Immunology
PROC: HZ42ZZZ Group Counseling for Substance Abuse Treatment, Cognitive-Behavioral (ICD-10-PCS; principal; 2021-09-16)
DX: F10.20 Alcohol dependence, uncomplicated (principal); F14.10 Cocaine abuse, uncomplicated

== ENCOUNTER 2022-01-30 14:12 | Inpatient (IN) | payer OTHER ==
[2022-01-30 15:09] VITALS: BMI 28.3
[2022-01-30] MEDS ORDERED: METHOCARBAMOL 500 MG TABLET PO PRN (16:38)
[2022-01-30] MEDS ORDERED: LOPERAMIDE HCL 2 MG CAPSULE PO PRN (16:38)
[2022-01-30] MEDS ORDERED: MAGNESIUM CITRATE 300 ML BOTTLE PO PRN (16:38)
[2022-01-30] MEDS ORDERED: BISMUTH SUBSALICYLATE 524 MG/30 ML PO PRN (16:38)
[2022-01-30] MEDS ORDERED: ONDANSETRON *ODT* 4 MG TABLET SL PRN (16:38)
[2022-01-30] MEDS ORDERED: MAG HYDROX/AL HYDROX/SIMETH 30 ML UNIT-DOSE CUP PO PRN (16:38)
[2022-01-30] MEDS ORDERED: MAGNESIUM HYDROX 2400MG/30ML ORAL SUSPENSION 30 ML CUP PO PRN (16:38)
[2022-01-30] MEDS ORDERED: MELATONIN 5 MG TABLETS PO PRN (16:38)
[2022-01-30] MEDS ORDERED: MENTHOL/PHENOL 1 EACH UD MM PRN (16:38)
[2022-01-30] MEDS ORDERED: ACETAMINOPHEN 325 MG TABLET (FP) PO PRN ×2 (16:38)
[2022-01-30] MEDS ORDERED: chlordiazePOXIDE HCL 25 MG CAPSULE PO PRN (16:42)
[2022-01-30] MEDS: chlordiazePOXIDE HCL 25 MG CAPSULE PO SCH (22:05)
[2022-01-30] MEDS: hydrOXYzine PAMOATE 25 MG CAPSULE (FP) PO PRN (22:05)
[2022-01-30] MEDS: THIAMINE HCL 100 MG TABLET (FP) PO SCH (22:05)
[2022-01-30] MEDS ORDERED: chlordiazePOXIDE HCL 25 MG CAPSULE PO SCH (23:00)
[2022-01-30] MEDS ORDERED: QUEtiapine FUMARATE 100 MG TABLET (FP) PO ONE (23:04)
[2022-01-31] MEDS: chlordiazePOXIDE HCL 25 MG CAPSULE PO SCH ×4 (07:27→22:08)
[2022-01-31 10:47] LABS: HEMATOCRIT 38.1 % (35.4-49); HEMOGLOBIN 13.2 GM/dL (11.7-16.9); MCH 30.1 pg (25.7-33.7); MCHC 34.6 g/dl (32.0-35.9); MEAN PLT VOLUME 9.1 fl (7.5-11.1); PLATELET COUNT 167 10^3/uL (134-434); RBC 4.38 M/mm3 (4.00-5.60); RDW 14.7 % (11.9-15.9)
[2022-01-31 11:07] LABS: CALCIUM 8.9 mg/dL (8.5-10.1)
[2022-01-31 11:08] LABS: ALBUMIN 3.4 g/dl (3.4-5.0)
[2022-01-31 11:11] LABS: CREATININE 1.1 mg/dL (0.55-1.3)
[2022-01-31 11:12] LABS: BILIRUBIN,TOTAL 0.5 mg/dL (0.2-1); TOT PROT 6.4 g/dl (6.4-8.2)
[2022-01-31] MEDS: PRENATAL VITAMINS W/ FOLIC ACID TABLET (FP) PO SCH (11:15)
[2022-01-31] MEDS: hydrOXYzine PAMOATE 25 MG CAPSULE (FP) PO PRN (11:15)
[2022-01-31] MEDS: NICOTINE 14 MG/24 HOURS TOPICAL PATCH TD SCH (11:18)
[2022-01-31] MEDS: THIAMINE HCL 100 MG TABLET (FP) PO SCH (22:08)
[2022-02-01] MEDS ORDERED: chlordiazePOXIDE HCL 25 MG CAPSULE PO SCH (05:00)
[2022-02-01] MEDS: chlordiazePOXIDE HCL 10 MG CAPSULE PO SCH ×4 (06:47→22:18)
[2022-02-01] MEDS: NICOTINE 14 MG/24 HOURS TOPICAL PATCH TD SCH (09:43)
[2022-02-01] MEDS: IBUPROFEN 400 MG TABLET (FP) PO PRN (09:43)
[2022-02-01] MEDS: PRENATAL VITAMINS W/ FOLIC ACID TABLET (FP) PO SCH (13:36)
[2022-02-01 14:08] LABS: SARS-CoV-2 NAA Not Detected (Not Detected)
[2022-02-01] MEDS: LIDOCAINE 5% TOPICAL PATCH TP SCH (14:50)
[2022-02-01] MEDS: LIDOCAINE PATCH REMOVAL MC SCH (22:19)
[2022-02-01] MEDS: QUEtiapine FUMARATE 100 MG TABLET (FP) PO SCH (22:19)
[2022-02-01] MEDS: THIAMINE HCL 100 MG TABLET (FP) PO SCH (22:19)
[2022-02-02] MEDS ORDERED: chlordiazePOXIDE HCL 10 MG CAPSULE PO PRN
[2022-02-02] MEDS ORDERED: chlordiazePOXIDE HCL 10 MG CAPSULE PO SCH (05:00)
[2022-02-02] MEDS: IBUPROFEN 400 MG TABLET (FP) PO PRN ×2 (05:54→13:07)
[2022-02-02] MEDS: chlordiazePOXIDE HCL 10 MG CAPSULE PO SCH ×2 (05:55→17:39)
[2022-02-02] MEDS: PRENATAL VITAMINS W/ FOLIC ACID TABLET (FP) PO SCH (10:56)
[2022-02-02] MEDS: NICOTINE 14 MG/24 HOURS TOPICAL PATCH TD SCH (10:56)
[2022-02-02] MEDS: LIDOCAINE 5% TOPICAL PATCH TP SCH (13:07)
[2022-02-02] MEDS: THIAMINE HCL 100 MG TABLET (FP) PO SCH (22:02)
[2022-02-02] MEDS: QUEtiapine FUMARATE 100 MG TABLET (FP) PO SCH (22:02)
[2022-02-02] MEDS: LIDOCAINE PATCH REMOVAL MC SCH (22:03)
[2022-02-03] MEDS ORDERED: chlordiazePOXIDE HCL 10 MG CAPSULE PO SCH (05:00)
[2022-02-03] MEDS ORDERED: chlordiazePOXIDE HCL 10 MG CAPSULE PO ONE (05:00)
[2022-02-03] MEDS: NICOTINE 14 MG/24 HOURS TOPICAL PATCH TD SCH (11:51)
[2022-02-03] MEDS: LIDOCAINE 5% TOPICAL PATCH TP SCH (11:51)
[2022-02-03] MEDS: PRENATAL VITAMINS W/ FOLIC ACID TABLET (FP) PO SCH (11:51)
[2022-02-03 15:09] VITALS: BP 125/73; PULSE 88; TEMP 96.6
[2022-02-04] MEDS ORDERED: chlordiazePOXIDE HCL 10 MG CAPSULE PO ONE (05:00)
== END 2022-02-03 15:57 | disposition home or self-care (01) | DRG 774 ==
LOC: YASAS 14:12 → Y6N 18:26
PROVIDERS: ADMIT Allergy & Immunology; ATTEND Allergy & Immunology
PROC: HZ2ZZZZ Detoxification Services for Substance Abuse Treatment (ICD-10-PCS; principal; 2022-01-30)
DX: F10.230 Alcohol dependence with withdrawal, uncomplicated (principal); F14.20 Cocaine dependence, uncomplicated; F17.210 Nicotine dependence, cigarettes, uncomplicated; F39 Unspecified mood [affective] disorder; Z56.0 Unemployment, unspecified; Z59.00 Homelessness unspecified
CPT/HCPCS: 36415; 80053; 85027; 86780; C9803; U0003; U0005

== ENCOUNTER 2022-03-20 09:40 | Inpatient (IN) | payer OTHER ==
[2022-03-20] MEDS ORDERED: chlordiazePOXIDE HCL 25 MG CAPSULE PO PRN (10:21)
[2022-03-20] MEDS ORDERED: MAG HYDROX/AL HYDROX/SIMETH 30 ML UNIT-DOSE CUP PO PRN (10:21)
[2022-03-20] MEDS ORDERED: ONDANSETRON *ODT* 4 MG TABLET SL PRN (10:21)
[2022-03-20] MEDS ORDERED: IBUPROFEN 400 MG TABLET (FP) PO PRN (10:21)
[2022-03-20] MEDS ORDERED: NICOTINE 10 MG CARTRIDGE (INHALER) IH PRN (10:21)
[2022-03-20] MEDS ORDERED: MAGNESIUM HYDROX 2400MG/30ML ORAL SUSPENSION 30 ML CUP PO PRN (10:21)
[2022-03-20] MEDS ORDERED: BISMUTH SUBSALICYLATE 262 MG/15 ML BTL PO PRN (10:21)
[2022-03-20] MEDS ORDERED: DICYCLOMINE HCL 10 MG CAPSULE PO PRN (10:21)
[2022-03-20] MEDS ORDERED: BENZOCAINE/MENTHOL (CHLORASEPTIC ) LOZENGE MM PRN (10:21)
[2022-03-20] MEDS ORDERED: ACETAMINOPHEN 325 MG TABLET (FP) PO PRN ×2 (10:21)
[2022-03-20] MEDS ORDERED: LOPERAMIDE HCL 2 MG CAPSULE PO PRN (10:21)
[2022-03-20] MEDS ORDERED: MAGNESIUM CITRATE 300 ML BOTTLE PO PRN (10:21)
[2022-03-20 10:23] VITALS: BMI 28.7
[2022-03-20] MEDS: PRENATAL VITAMINS W/ FOLIC ACID TABLET (FP) PO SCH (12:51)
[2022-03-20] MEDS: NICOTINE 21 MG/24 HOURS TOPICAL PATCH TD SCH (12:51)
[2022-03-20] MEDS: hydrOXYzine PAMOATE 25 MG CAPSULE (FP) PO SCH ×2 (14:33→18:57)
[2022-03-20 16:57] LABS: HEMATOCRIT 39.3 % (35.4-49); MCH 28.9 pg (25.7-33.7); MEAN CELL VOLUME 87.4 fl (80-96); MEAN PLT VOLUME 9.3 fl (7.5-11.1); PLATELET COUNT 196 10^3/uL (134-434); RBC 4.49 M/mm3 (4.00-5.60); RDW 14.4 % (11.9-15.9); WHITE BLOOD COUNT 6.3 K/mm3 (4.0-10.0)
[2022-03-20 17:01] LABS: ALBUMIN 3.6 g/dl (3.4-5.0); CALCIUM 8.7 mg/dL (8.5-10.1)
[2022-03-20 17:02] LABS: BLOOD UREA NITROGEN 21.3 mg/dL (7-18)
[2022-03-20 17:03] LABS: CREATININE 1.2 mg/dL (0.55-1.3)
[2022-03-20 17:05] LABS: BILIRUBIN,TOTAL 0.5 mg/dL (0.2-1)
[2022-03-20] MEDS: chlordiazePOXIDE HCL 25 MG CAPSULE PO SCH (18:58)
[2022-03-21] MEDS: hydrOXYzine PAMOATE 25 MG CAPSULE (FP) PO SCH ×6 (00:05→22:47)
[2022-03-21] MEDS: THIAMINE HCL 100 MG TABLET (FP) PO SCH ×2 (00:05→22:47)
[2022-03-21] MEDS: chlordiazePOXIDE HCL 25 MG CAPSULE PO SCH ×5 (00:05→22:47)
[2022-03-21] MEDS: MELATONIN 5 MG TABLETS PO SCH ×2 (00:05→22:47)
[2022-03-21] MEDS: NICOTINE 21 MG/24 HOURS TOPICAL PATCH TD SCH (11:26)
[2022-03-21] MEDS: PRENATAL VITAMINS W/ FOLIC ACID TABLET (FP) PO SCH (11:26)
[2022-03-22] MEDS: hydrOXYzine PAMOATE 25 MG CAPSULE (FP) PO SCH ×5 (08:16→22:34)
[2022-03-22] MEDS: chlordiazePOXIDE HCL 25 MG CAPSULE PO SCH ×4 (08:17→22:34)
[2022-03-22] MEDS: NICOTINE 21 MG/24 HOURS TOPICAL PATCH TD SCH (11:11)
[2022-03-22] MEDS: PRENATAL VITAMINS W/ FOLIC ACID TABLET (FP) PO SCH (11:11)
[2022-03-22 14:12] LABS: SARS-CoV-2 NAA Not Detected (Not Detected)
[2022-03-22] MEDS: METHOCARBAMOL 500 MG TABLET PO PRN (18:00)
[2022-03-22] MEDS: QUEtiapine FUMARATE 100 MG TABLET (FP) PO SCH (22:33)
[2022-03-22] MEDS: THIAMINE HCL 100 MG TABLET (FP) PO SCH (22:34)
[2022-03-22] MEDS: MELATONIN 5 MG TABLETS PO SCH (22:34)
[2022-03-23] MEDS ORDERED: chlordiazePOXIDE HCL 10 MG CAPSULE PO PRN
[2022-03-23] MEDS: chlordiazePOXIDE HCL 10 MG CAPSULE PO SCH ×4 (06:21→23:01)
[2022-03-23] MEDS: hydrOXYzine PAMOATE 25 MG CAPSULE (FP) PO SCH ×5 (06:22→22:36)
[2022-03-23] MEDS: PRENATAL VITAMINS W/ FOLIC ACID TABLET (FP) PO SCH (10:43)
[2022-03-23] MEDS: METHOCARBAMOL 500 MG TABLET PO PRN (10:43)
[2022-03-23] MEDS: NICOTINE 21 MG/24 HOURS TOPICAL PATCH TD SCH (10:43)
[2022-03-23 21:49] VITALS: BP 153/89; PULSE 97; TEMP 97
[2022-03-23] MEDS: QUEtiapine FUMARATE 100 MG TABLET (FP) PO SCH (22:36)
[2022-03-23] MEDS: MELATONIN 5 MG TABLETS PO SCH (22:36)
[2022-03-23] MEDS: THIAMINE HCL 100 MG TABLET (FP) PO SCH (22:36)
[2022-03-24] MEDS ORDERED: chlordiazePOXIDE HCL 10 MG CAPSULE PO SCH (05:00)
[2022-03-24] MEDS: hydrOXYzine PAMOATE 25 MG CAPSULE (FP) PO SCH (06:35)
[2022-03-25] MEDS ORDERED: chlordiazePOXIDE HCL 10 MG CAPSULE PO ONE (05:00)
== END 2022-03-24 09:10 | disposition home or self-care (01) | DRG 774 ==
LOC: YASAS 09:40 → Y6N 10:42
PROVIDERS: ADMIT Allergy & Immunology; ATTEND Allergy & Immunology
PROC: HZ2ZZZZ Detoxification Services for Substance Abuse Treatment (ICD-10-PCS; principal; 2022-03-20)
DX: F10.230 Alcohol dependence with withdrawal, uncomplicated (principal); F14.20 Cocaine dependence, uncomplicated; F13.10 Sedative, hypnotic or anxiolytic abuse, uncomplicated; F15.10 Other stimulant abuse, uncomplicated; F17.210 Nicotine dependence, cigarettes, uncomplicated; F19.282 Other psychoactive substance dependence with psychoactive substance-induced sleep disorder; F19.280 Other psychoactive substance dependence with psychoactive substance-induced anxiety disorder; F39 Unspecified mood [affective] disorder; G47.00 Insomnia, unspecified; I10 Essential (primary) hypertension; R76.11 Nonspecific reaction to tuberculin skin test without active tuberculosis; Z28.310 Unvaccinated for COVID-19; Z56.0 Unemployment, unspecified
CPT/HCPCS: 36415; 80053; 85027; 86780; C9803-CS; U0003; U0005

== ENCOUNTER 2022-05-07 13:52 | Inpatient (IN) | payer OTHER ==
[2022-05-07] MEDS ORDERED: MAGNESIUM HYDROX 2400MG/30ML ORAL SUSPENSION 30 ML CUP PO PRN (14:52)
[2022-05-07] MEDS ORDERED: NICOTINE 10 MG CARTRIDGE (INHALER) IH PRN (14:52)
[2022-05-07] MEDS ORDERED: ONDANSETRON *ODT* 4 MG TABLET SL PRN (14:52)
[2022-05-07] MEDS ORDERED: DICYCLOMINE HCL 10 MG CAPSULE PO PRN (14:52)
[2022-05-07] MEDS ORDERED: METHOCARBAMOL 500 MG TABLET PO PRN (14:52)
[2022-05-07] MEDS ORDERED: chlordiazePOXIDE HCL 25 MG CAPSULE PO PRN (14:52)
[2022-05-07] MEDS ORDERED: BENZOCAINE/MENTHOL (CHLORASEPTIC ) LOZENGE MM PRN (14:52)
[2022-05-07] MEDS ORDERED: MAG HYDROX/AL HYDROX/SIMETH 30 ML UNIT-DOSE CUP PO PRN (14:52)
[2022-05-07] MEDS ORDERED: IBUPROFEN 400 MG TABLET (FP) PO PRN (14:52)
[2022-05-07] MEDS ORDERED: ACETAMINOPHEN 325 MG TABLET (FP) PO PRN ×2 (14:52)
[2022-05-07] MEDS ORDERED: LOPERAMIDE HCL 2 MG CAPSULE PO PRN (14:52)
[2022-05-07] MEDS ORDERED: MAGNESIUM CITRATE 300 ML BOTTLE PO PRN (14:52)
[2022-05-07] MEDS ORDERED: IBUPROFEN 600 MG TABLET (FP) PO PRN (14:52)
[2022-05-07] MEDS ORDERED: BISMUTH SUBSALICYLATE 524 MG/30 ML PO PRN (14:52)
[2022-05-07 15:22] VITALS: BMI 25.1
[2022-05-07] MEDS: NICOTINE 14 MG/24 HOURS TOPICAL PATCH TD SCH (18:56)
[2022-05-07] MEDS: hydrOXYzine PAMOATE 25 MG CAPSULE (FP) PO SCH ×2 (18:57→23:16)
[2022-05-07] MEDS: PRENATAL VITAMINS W/ FOLIC ACID TABLET (FP) PO SCH (18:57)
[2022-05-07] MEDS: MELATONIN 5 MG TABLETS PO SCH (23:16)
[2022-05-07] MEDS: THIAMINE HCL 100 MG TABLET (FP) PO SCH (23:17)
[2022-05-07] MEDS: chlordiazePOXIDE HCL 25 MG CAPSULE PO SCH (23:17)
[2022-05-08] MEDS: hydrOXYzine PAMOATE 25 MG CAPSULE (FP) PO SCH ×5 (07:06→22:55)
[2022-05-08] MEDS: chlordiazePOXIDE HCL 25 MG CAPSULE PO SCH ×4 (07:07→22:55)
[2022-05-08 09:47] LABS: HEMATOCRIT 42.6 % (35.4-49); HEMOGLOBIN 14.1 GM/dL (11.7-16.9); MCH 29.6 pg (25.7-33.7); MCHC 33.1 g/dl (32.0-35.9); MEAN CELL VOLUME 89.4 fl (80-96); PLATELET COUNT 200 10^3/uL (134-434); RBC 4.76 M/mm3 (4.00-5.60); RDW 15.8 % (11.9-15.9); WHITE BLOOD COUNT 4.3 K/mm3 (4.0-10.0)
[2022-05-08 09:52] LABS: ALBUMIN 3.4 g/dl (3.4-5.0); BLOOD UREA NITROGEN 14.1 mg/dL (7-18); CALCIUM 9.3 mg/dL (8.5-10.1)
[2022-05-08 09:57] LABS: BILIRUBIN,TOTAL 0.3 mg/dL (0.2-1); TOT PROT 6.5 g/dl (6.4-8.2)
[2022-05-08] MEDS: PRENATAL VITAMINS W/ FOLIC ACID TABLET (FP) PO SCH (10:15)
[2022-05-08] MEDS: NICOTINE 14 MG/24 HOURS TOPICAL PATCH TD SCH (10:18)
[2022-05-08] MEDS: THIAMINE HCL 100 MG TABLET (FP) PO SCH (22:55)
[2022-05-08] MEDS: MELATONIN 5 MG TABLETS PO SCH (22:55)
[2022-05-08] MEDS: QUEtiapine FUMARATE 100 MG TABLET (FP) PO SCH (22:55)
[2022-05-09] MEDS: chlordiazePOXIDE HCL 25 MG CAPSULE PO SCH ×4 (06:27→22:59)
[2022-05-09] MEDS: hydrOXYzine PAMOATE 25 MG CAPSULE (FP) PO SCH ×5 (06:27→22:59)
[2022-05-09] MEDS: NICOTINE 14 MG/24 HOURS TOPICAL PATCH TD SCH (10:50)
[2022-05-09] MEDS: PRENATAL VITAMINS W/ FOLIC ACID TABLET (FP) PO SCH (10:50)
[2022-05-09] MEDS: QUEtiapine FUMARATE 100 MG TABLET (FP) PO SCH (22:58)
[2022-05-09] MEDS: THIAMINE HCL 100 MG TABLET (FP) PO SCH (22:59)
[2022-05-09] MEDS: MELATONIN 5 MG TABLETS PO SCH (23:00)
[2022-05-10] MEDS ORDERED: chlordiazePOXIDE HCL 10 MG CAPSULE PO PRN
[2022-05-10] MEDS: hydrOXYzine PAMOATE 25 MG CAPSULE (FP) PO SCH ×6 (05:31→22:20)
[2022-05-10] MEDS: chlordiazePOXIDE HCL 10 MG CAPSULE PO SCH ×5 (05:31→22:21)
[2022-05-10] MEDS: NICOTINE 14 MG/24 HOURS TOPICAL PATCH TD SCH (11:00)
[2022-05-10] MEDS: PRENATAL VITAMINS W/ FOLIC ACID TABLET (FP) PO SCH (11:01)
[2022-05-10] MEDS: QUEtiapine FUMARATE 100 MG TABLET (FP) PO SCH (22:20)
[2022-05-10] MEDS: MELATONIN 5 MG TABLETS PO SCH (22:21)
[2022-05-10] MEDS: THIAMINE HCL 100 MG TABLET (FP) PO SCH (22:21)
[2022-05-11] MEDS: chlordiazePOXIDE HCL 10 MG CAPSULE PO SCH ×2 (07:30→17:15)
[2022-05-11] MEDS: hydrOXYzine PAMOATE 25 MG CAPSULE (FP) PO SCH ×5 (07:31→22:14)
[2022-05-11] MEDS: NICOTINE 14 MG/24 HOURS TOPICAL PATCH TD SCH (10:01)
[2022-05-11] MEDS: PRENATAL VITAMINS W/ FOLIC ACID TABLET (FP) PO SCH (10:01)
[2022-05-11] MEDS: MELATONIN 5 MG TABLETS PO SCH (22:13)
[2022-05-11] MEDS: THIAMINE HCL 100 MG TABLET (FP) PO SCH (22:13)
[2022-05-11] MEDS: QUEtiapine FUMARATE 100 MG TABLET (FP) PO SCH (22:14)
[2022-05-12] MEDS ORDERED: chlordiazePOXIDE HCL 10 MG CAPSULE PO ONE (05:00)
[2022-05-12 07:32] VITALS: BP 126/70; PULSE 58; TEMP 98.2
[2022-05-12] MEDS: hydrOXYzine PAMOATE 25 MG CAPSULE (FP) PO SCH ×2 (07:49→10:06)
[2022-05-12] MEDS: PRENATAL VITAMINS W/ FOLIC ACID TABLET (FP) PO SCH (10:06)
[2022-05-12] MEDS: NICOTINE 14 MG/24 HOURS TOPICAL PATCH TD SCH (10:06)
== END 2022-05-12 09:44 | disposition other institution (70) | DRG 774 ==
LOC: YASAS 13:52 → Y3N 16:46
PROVIDERS: ADMIT Allergy & Immunology; ATTEND Surgery
PROC: HZ2ZZZZ Detoxification Services for Substance Abuse Treatment (ICD-10-PCS; principal; 2022-05-07)
DX: F10.230 Alcohol dependence with withdrawal, uncomplicated (principal); F14.20 Cocaine dependence, uncomplicated; F17.210 Nicotine dependence, cigarettes, uncomplicated; F19.282 Other psychoactive substance dependence with psychoactive substance-induced sleep disorder; F31.9 Bipolar disorder, unspecified; F39 Unspecified mood [affective] disorder; G47.00 Insomnia, unspecified; I10 Essential (primary) hypertension; R76.11 Nonspecific reaction to tuberculin skin test without active tuberculosis; Z91.014 Allergy to mammalian meats
CPT/HCPCS: 36415; 80053; 85027; 86780; C9803-CS; U0003; U0005

== ENCOUNTER 2022-06-15 13:49 | Inpatient (IN) | payer OTHER ==
[2022-06-15 15:15] VITALS: BMI 27.9
[2022-06-15] MEDS ORDERED: ONDANSETRON *ODT* 4 MG TABLET SL PRN (17:28)
[2022-06-15] MEDS ORDERED: LOPERAMIDE HCL 2 MG CAPSULE PO PRN (17:28)
[2022-06-15] MEDS ORDERED: MAG HYDROX/AL HYDROX/SIMETH 30 ML UNIT-DOSE CUP PO PRN (17:28)
[2022-06-15] MEDS ORDERED: DICYCLOMINE HCL 10 MG CAPSULE PO PRN (17:28)
[2022-06-15] MEDS ORDERED: BENZOCAINE/MENTHOL (CHLORASEPTIC ) LOZENGE MM PRN (17:28)
[2022-06-15] MEDS ORDERED: IBUPROFEN 400 MG TABLET (FP) PO PRN (17:28)
[2022-06-15] MEDS ORDERED: MAGNESIUM CITRATE 300 ML BOTTLE PO PRN (17:28)
[2022-06-15] MEDS ORDERED: METHOCARBAMOL 500 MG TABLET PO PRN (17:28)
[2022-06-15] MEDS ORDERED: ACETAMINOPHEN 325 MG TABLET (FP) PO PRN ×2 (17:28)
[2022-06-15] MEDS ORDERED: BISMUTH SUBSALICYLATE 524 MG/30 ML PO PRN (17:28)
[2022-06-15] MEDS ORDERED: MAGNESIUM HYDROX 2400MG/30ML ORAL SUSPENSION 30 ML CUP PO PRN (17:28)
[2022-06-15] MEDS: hydrOXYzine PAMOATE 25 MG CAPSULE (FP) PO SCH ×2 (18:38→22:42)
[2022-06-15] MEDS: MELATONIN 5 MG TABLETS PO SCH (22:42)
[2022-06-15] MEDS: THIAMINE HCL 100 MG TABLET (FP) PO SCH (22:42)
[2022-06-16] MEDS: hydrOXYzine PAMOATE 25 MG CAPSULE (FP) PO SCH ×5 (06:46→22:56)
[2022-06-16] MEDS: NICOTINE 14 MG/24 HOURS TOPICAL PATCH TD SCH (11:00)
[2022-06-16] MEDS: PRENATAL VITAMINS W/ FOLIC ACID TABLET (FP) PO SCH (11:00)
[2022-06-16] MEDS: IBUPROFEN 600 MG TABLET (FP) PO PRN (22:53)
[2022-06-16] MEDS: QUEtiapine FUMARATE 100 MG TABLET (FP) PO SCH (22:54)
[2022-06-16] MEDS: MELATONIN 5 MG TABLETS PO SCH (22:55)
[2022-06-16] MEDS: THIAMINE HCL 100 MG TABLET (FP) PO SCH (22:56)
[2022-06-17] MEDS: hydrOXYzine PAMOATE 25 MG CAPSULE (FP) PO SCH ×5 (07:33→22:34)
[2022-06-17] MEDS: NICOTINE 14 MG/24 HOURS TOPICAL PATCH TD SCH (11:02)
[2022-06-17] MEDS: PRENATAL VITAMINS W/ FOLIC ACID TABLET (FP) PO SCH (11:02)
[2022-06-17] MEDS ORDERED: chlordiazePOXIDE HCL 10 MG CAPSULE PO PRN (12:30)
[2022-06-17] MEDS: chlordiazePOXIDE HCL 10 MG CAPSULE PO SCH ×2 (17:49→22:42)
[2022-06-17] MEDS: IBUPROFEN 600 MG TABLET (FP) PO PRN (17:50)
[2022-06-17] MEDS: QUEtiapine FUMARATE 100 MG TABLET (FP) PO SCH (22:34)
[2022-06-17] MEDS: MELATONIN 5 MG TABLETS PO SCH (22:39)
[2022-06-17] MEDS: THIAMINE HCL 100 MG TABLET (FP) PO SCH (22:39)
[2022-06-18] MEDS: chlordiazePOXIDE HCL 10 MG CAPSULE PO SCH ×2 (06:44→18:18)
[2022-06-18] MEDS: hydrOXYzine PAMOATE 25 MG CAPSULE (FP) PO SCH ×5 (06:45→22:42)
[2022-06-18] MEDS: NICOTINE 14 MG/24 HOURS TOPICAL PATCH TD SCH (10:17)
[2022-06-18] MEDS: PRENATAL VITAMINS W/ FOLIC ACID TABLET (FP) PO SCH (10:17)
[2022-06-18] MEDS ORDERED: cloNIDine HCL 0.1 MG TABLET PO ONE ×2 (18:37→22:54)
[2022-06-18] MEDS: QUEtiapine FUMARATE 100 MG TABLET (FP) PO SCH (22:42)
[2022-06-18 22:43] VITALS: RESP 18
[2022-06-18] MEDS: MELATONIN 5 MG TABLETS PO SCH (22:43)
[2022-06-18] MEDS: THIAMINE HCL 100 MG TABLET (FP) PO SCH (22:43)
[2022-06-19] MEDS ORDERED: chlordiazePOXIDE HCL 10 MG CAPSULE PO ONE (05:00)
[2022-06-19] MEDS: hydrOXYzine PAMOATE 25 MG CAPSULE (FP) PO SCH (07:09)
[2022-06-19 08:49] VITALS: BP 124/68; PULSE 83; TEMP 97.2
== END 2022-06-19 09:40 | disposition home or self-care (01) | DRG 774 ==
LOC: YASAS 13:49 → Y3N 17:58
PROVIDERS: ADMIT Allergy & Immunology; ATTEND Surgery
PROC: HZ2ZZZZ Detoxification Services for Substance Abuse Treatment (ICD-10-PCS; principal; 2022-06-15)
DX: F10.230 Alcohol dependence with withdrawal, uncomplicated (principal); F14.20 Cocaine dependence, uncomplicated; F13.10 Sedative, hypnotic or anxiolytic abuse, uncomplicated; F17.210 Nicotine dependence, cigarettes, uncomplicated; F19.282 Other psychoactive substance dependence with psychoactive substance-induced sleep disorder; F19.280 Other psychoactive substance dependence with psychoactive substance-induced anxiety disorder; F19.24 Other psychoactive substance dependence with psychoactive substance-induced mood disorder; F31.9 Bipolar disorder, unspecified; I10 Essential (primary) hypertension; E78.5 Hyperlipidemia, unspecified; R76.11 Nonspecific reaction to tuberculin skin test without active tuberculosis; Z28.310 Unvaccinated for COVID-19
CPT/HCPCS: J0735

== ENCOUNTER 2022-12-27 11:07 | Inpatient (IN) | payer OTHER ==
[2022-12-27 12:45] VITALS: BMI 22.5
[2022-12-27] MEDS ORDERED: NICOTINE 10 MG CARTRIDGE (INHALER) IH PRN (13:17)
[2022-12-27] MEDS ORDERED: DICYCLOMINE HCL 10 MG CAPSULE PO PRN (13:17)
[2022-12-27] MEDS ORDERED: BISMUTH SUBSALICYLATE 262 MG/15 ML BTL PO PRN (13:17)
[2022-12-27] MEDS ORDERED: chlordiazePOXIDE HCL 25 MG CAPSULE PO ONE ×2 (13:17→14:47)
[2022-12-27] MEDS ORDERED: MAG HYDROX/AL HYDROX/SIMETH 30 ML UNIT-DOSE CUP PO PRN (13:17)
[2022-12-27] MEDS ORDERED: ACETAMINOPHEN 325 MG TABLET (FP) PO PRN ×2 (13:17)
[2022-12-27] MEDS ORDERED: LOPERAMIDE HCL 2 MG CAPSULE PO PRN (13:17)
[2022-12-27] MEDS ORDERED: POLYETHYLENE GLYCOL (HEALTHYLAX) 3350 17 GM PACKET PO PRN (13:17)
[2022-12-27] MEDS ORDERED: BENZOCAINE/MENTHOL (CHLORASEPTIC ) LOZENGE MM PRN (13:17)
[2022-12-27] MEDS ORDERED: NALOXONE HCL (KLOXXADO) 8 MG SPRAY NS PRN (13:17)
[2022-12-27] MEDS ORDERED: MAGNESIUM HYDROX 2400MG/30ML ORAL SUSPENSION 30 ML CUP PO PRN (13:17)
[2022-12-27] MEDS ORDERED: chlordiazePOXIDE HCL 25 MG CAPSULE PO PRN (13:17)
[2022-12-27] MEDS ORDERED: hydrOXYzine PAMOATE 25 MG CAPSULE (FP) PO PRN (13:17)
[2022-12-27] MEDS ORDERED: IBUPROFEN 400 MG TABLET (FP) PO PRN (13:17)
[2022-12-27] MEDS ORDERED: ONDANSETRON *ODT* 4 MG TABLET SL PRN (13:17)
[2022-12-27] MEDS: PRENATAL VITAMINS W/ FOLIC ACID TABLET (FP) PO SCH (15:19)
[2022-12-27] MEDS: chlordiazePOXIDE HCL 25 MG CAPSULE PO SCH ×2 (17:28→22:12)
[2022-12-27] MEDS: IBUPROFEN 600 MG TABLET (FP) PO PRN (17:28)
[2022-12-27] MEDS: METHOCARBAMOL 500 MG TABLET PO PRN (19:22)
[2022-12-27] MEDS ORDERED: MELATONIN 5 MG TABLETS PO SCH (22:00)
[2022-12-27] MEDS: THIAMINE HCL 100 MG TABLET (FP) PO SCH (22:12)
[2022-12-28] MEDS: chlordiazePOXIDE HCL 25 MG CAPSULE PO SCH ×4 (05:45→22:42)
[2022-12-28] MEDS: PRENATAL VITAMINS W/ FOLIC ACID TABLET (FP) PO SCH (10:37)
[2022-12-28] MEDS: IBUPROFEN 600 MG TABLET (FP) PO PRN (10:41)
[2022-12-28] MEDS: METHOCARBAMOL 500 MG TABLET PO PRN ×2 (10:42→19:55)
[2022-12-28 10:59] LABS: HEMATOCRIT 36.8 % (35.4-49); HEMOGLOBIN 12.2 GM/dL (11.7-16.9); MCH 29.7 pg (25.7-33.7); MEAN PLT VOLUME 8.3 fl (7.5-11.1); PLATELET COUNT 293 10^3/uL (134-434); RBC 4.09 M/mm3 (4.00-5.60); RDW 13.7 % (11.9-15.9); WHITE BLOOD COUNT 5.4 K/mm3 (4.0-10.0)
[2022-12-28 11:38] LABS: BLOOD UREA NITROGEN 11.7 mg/dL (7-18); CALCIUM 8.7 mg/dL (8.5-10.1)
[2022-12-28 11:39] LABS: ALBUMIN 2.9 g/dl (3.4-5.0)
[2022-12-28 11:40] LABS: BILIRUBIN,TOTAL 0.3 mg/dL (0.2-1)
[2022-12-28 11:42] LABS: CREATININE 0.9 mg/dL (0.55-1.3)
[2022-12-28 11:43] LABS: TOT PROT 5.9 g/dl (6.4-8.2)
[2022-12-28] MEDS ORDERED: GABAPENTIN 100 MG CAPSULE PO ONE (20:52)
[2022-12-28] MEDS ORDERED: cloNIDine HCL 0.1 MG TABLET PO ONE (22:25)
[2022-12-28] MEDS: THIAMINE HCL 100 MG TABLET (FP) PO SCH (22:41)
[2022-12-28] MEDS: QUEtiapine FUMARATE 100 MG TABLET (FP) PO SCH (22:41)
[2022-12-29] MEDS: chlordiazePOXIDE HCL 25 MG CAPSULE PO SCH ×4 (05:33→22:28)
[2022-12-29] MEDS: PRENATAL VITAMINS W/ FOLIC ACID TABLET (FP) PO SCH (10:52)
[2022-12-29] MEDS: LACTULOSE 20 GM/30 ML UDC (FOR ORAL USE ONLY) PO SCH ×2 (13:49→22:27)
[2022-12-29] MEDS: IBUPROFEN 600 MG TABLET (FP) PO PRN (17:32)
[2022-12-29] MEDS: METHOCARBAMOL 500 MG TABLET PO PRN (22:28)
[2022-12-29] MEDS: QUEtiapine FUMARATE 100 MG TABLET (FP) PO SCH (22:28)
[2022-12-29] MEDS: THIAMINE HCL 100 MG TABLET (FP) PO SCH (22:28)
[2022-12-30] MEDS ORDERED: chlordiazePOXIDE HCL 10 MG CAPSULE PO PRN
[2022-12-30] MEDS: chlordiazePOXIDE HCL 10 MG CAPSULE PO SCH ×5 (05:16→22:09)
[2022-12-30] MEDS: LACTULOSE 20 GM/30 ML UDC (FOR ORAL USE ONLY) PO SCH ×4 (05:16→22:06)
[2022-12-30] MEDS: PRENATAL VITAMINS W/ FOLIC ACID TABLET (FP) PO SCH (10:40)
[2022-12-30] MEDS: amLODIPine BESYLATE 5 MG TABLET (FP) PO SCH (11:54)
[2022-12-30] MEDS: IBUPROFEN 600 MG TABLET (FP) PO PRN (17:24)
[2022-12-30] MEDS: QUEtiapine FUMARATE 100 MG TABLET (FP) PO SCH (22:06)
[2022-12-30] MEDS: METHOCARBAMOL 500 MG TABLET PO PRN (22:06)
[2022-12-30] MEDS: THIAMINE HCL 100 MG TABLET (FP) PO SCH (22:06)
[2022-12-31] MEDS: LACTULOSE 20 GM/30 ML UDC (FOR ORAL USE ONLY) PO SCH ×3 (05:23→22:26)
[2022-12-31] MEDS: chlordiazePOXIDE HCL 10 MG CAPSULE PO SCH ×2 (05:23→18:05)
[2022-12-31] MEDS: amLODIPine BESYLATE 5 MG TABLET (FP) PO SCH (10:20)
[2022-12-31] MEDS: PRENATAL VITAMINS W/ FOLIC ACID TABLET (FP) PO SCH (10:20)
[2022-12-31] MEDS: cloNIDine HCL 0.1 MG TABLET PO ONE ×2 (12:54→12:55)
[2022-12-31] MEDS: IBUPROFEN 600 MG TABLET (FP) PO PRN (12:54)
[2022-12-31] MEDS: METHOCARBAMOL 500 MG TABLET PO PRN (12:55)
[2022-12-31] MEDS: THIAMINE HCL 100 MG TABLET (FP) PO SCH (22:25)
[2022-12-31] MEDS: QUEtiapine FUMARATE 100 MG TABLET (FP) PO SCH (22:25)
[2023-01-01] MEDS ORDERED: chlordiazePOXIDE HCL 10 MG CAPSULE PO ONE (05:00)
[2023-01-01] MEDS: LACTULOSE 20 GM/30 ML UDC (FOR ORAL USE ONLY) PO SCH (05:24)
[2023-01-01 09:23] VITALS: BP 142/78; PULSE 89; RESP 16; TEMP 98.2
[2023-01-01] MEDS ORDERED: amLODIPine BESYLATE 10 MG TABLET (FP) PO SCH (10:00)
== END 2023-01-01 09:10 | disposition home or self-care (01) | DRG 774 ==
LOC: YASAS 11:07 → Y6N 14:39
PROVIDERS: ADMIT Allergy & Immunology; ATTEND Family Medicine
PROC: HZ2ZZZZ Detoxification Services for Substance Abuse Treatment (ICD-10-PCS; principal; 2022-12-27)
DX: F10.230 Alcohol dependence with withdrawal, uncomplicated (principal); F14.20 Cocaine dependence, uncomplicated; F17.210 Nicotine dependence, cigarettes, uncomplicated; F19.282 Other psychoactive substance dependence with psychoactive substance-induced sleep disorder; F19.280 Other psychoactive substance dependence with psychoactive substance-induced anxiety disorder; I10 Essential (primary) hypertension; G47.00 Insomnia, unspecified; R79.89 Other specified abnormal findings of blood chemistry; Z86.11 Personal history of tuberculosis; Z86.59 Personal history of other mental and behavioral disorders; Z28.310 Unvaccinated for COVID-19; Z28.9 Immunization not carried out for unspecified reason
CPT/HCPCS: 36415; 71046-TC-FY; 80053; 82140; 83036; 85027; 86780; 87811; 93005; 93010; C9803-CS; U0003; U0005

== ENCOUNTER 2023-01-18 19:59 | Inpatient (IN) | payer OTHER ==
[2023-01-18 20:30] VITALS: BMI 22.4
[2023-01-18] MEDS ORDERED: MAG HYDROX/AL HYDROX/SIMETH 30 ML UNIT-DOSE CUP PO PRN (23:21)
[2023-01-18] MEDS ORDERED: LOPERAMIDE HCL 2 MG CAPSULE PO PRN (23:21)
[2023-01-18] MEDS ORDERED: ACETAMINOPHEN 325 MG TABLET (FP) PO PRN ×2 (23:21)
[2023-01-18] MEDS ORDERED: DICYCLOMINE HCL 10 MG CAPSULE PO PRN (23:21)
[2023-01-18] MEDS ORDERED: NALOXONE HCL (KLOXXADO) 8 MG SPRAY NS PRN (23:21)
[2023-01-18] MEDS ORDERED: POLYETHYLENE GLYCOL (HEALTHYLAX) 3350 17 GM PACKET PO PRN (23:21)
[2023-01-18] MEDS ORDERED: IBUPROFEN 600 MG TABLET (FP) PO PRN (23:21)
[2023-01-18] MEDS ORDERED: NICOTINE 10 MG CARTRIDGE (INHALER) IH PRN (23:21)
[2023-01-18] MEDS ORDERED: ONDANSETRON *ODT* 4 MG TABLET SL PRN (23:21)
[2023-01-18] MEDS ORDERED: BISMUTH SUBSALICYLATE 524 MG/30 ML PO PRN (23:21)
[2023-01-18] MEDS ORDERED: BENZOCAINE/MENTHOL (CHLORASEPTIC ) LOZENGE MM PRN (23:21)
[2023-01-18] MEDS ORDERED: MAGNESIUM HYDROX 2400MG/30ML ORAL SUSPENSION 30 ML CUP PO PRN (23:21)
[2023-01-18] MEDS ORDERED: IBUPROFEN 400 MG TABLET (FP) PO PRN (23:21)
[2023-01-19] MEDS ORDERED: chlordiazePOXIDE HCL 25 MG CAPSULE PO PRN (08:22)
[2023-01-19] MEDS: PRENATAL VITAMINS W/ FOLIC ACID TABLET (FP) PO SCH (10:53)
[2023-01-19] MEDS: NICOTINE 14 MG/24 HOURS TOPICAL PATCH TD SCH (10:56)
[2023-01-19] MEDS: chlordiazePOXIDE HCL 25 MG CAPSULE PO SCH ×3 (10:56→22:57)
[2023-01-19] MEDS: QUEtiapine FUMARATE 100 MG TABLET (FP) PO SCH (22:57)
[2023-01-19] MEDS: THIAMINE HCL 100 MG TABLET (FP) PO SCH (22:57)
[2023-01-19] MEDS: MELATONIN 5 MG TABLETS PO SCH (23:00)
[2023-01-20] MEDS: chlordiazePOXIDE HCL 25 MG CAPSULE PO SCH ×4 (05:59→22:48)
[2023-01-20] MEDS: PRENATAL VITAMINS W/ FOLIC ACID TABLET (FP) PO SCH (10:51)
[2023-01-20] MEDS: NICOTINE 14 MG/24 HOURS TOPICAL PATCH TD SCH (10:52)
[2023-01-20] MEDS: THIAMINE HCL 100 MG TABLET (FP) PO SCH (22:48)
[2023-01-20] MEDS: QUEtiapine FUMARATE 100 MG TABLET (FP) PO SCH (22:48)
[2023-01-20] MEDS: MELATONIN 5 MG TABLETS PO SCH (22:50)
[2023-01-21] MEDS: chlordiazePOXIDE HCL 25 MG CAPSULE PO SCH ×5 (06:08→23:19)
[2023-01-21] MEDS: PRENATAL VITAMINS W/ FOLIC ACID TABLET (FP) PO SCH (10:26)
[2023-01-21] MEDS: METHOCARBAMOL 500 MG TABLET PO PRN (10:26)
[2023-01-21] MEDS: NICOTINE 14 MG/24 HOURS TOPICAL PATCH TD SCH (10:27)
[2023-01-21] MEDS: MELATONIN 5 MG TABLETS PO SCH (23:00)
[2023-01-21] MEDS: THIAMINE HCL 100 MG TABLET (FP) PO SCH (23:00)
[2023-01-21] MEDS: QUEtiapine FUMARATE 100 MG TABLET (FP) PO SCH ×2 (23:03→23:17)
[2023-01-21] MEDS ORDERED: guaiFENesin 200 MG/10 ML 10 ML UNIT-DOSE CUPS PO PRN (23:26)
[2023-01-21] MEDS ORDERED: METOPROLOL TARTRATE 25 MG TABLET (FP) PO ONE (23:26)
[2023-01-22] MEDS ORDERED: chlordiazePOXIDE HCL 10 MG CAPSULE PO PRN
[2023-01-22] MEDS: chlordiazePOXIDE HCL 10 MG CAPSULE PO SCH ×4 (05:59→23:00)
[2023-01-22] MEDS: PRENATAL VITAMINS W/ FOLIC ACID TABLET (FP) PO SCH (10:01)
[2023-01-22] MEDS: METHOCARBAMOL 500 MG TABLET PO PRN (10:01)
[2023-01-22] MEDS: NICOTINE 14 MG/24 HOURS TOPICAL PATCH TD SCH (10:02)
[2023-01-22] MEDS: QUEtiapine FUMARATE 100 MG TABLET (FP) PO SCH (22:59)
[2023-01-22] MEDS: THIAMINE HCL 100 MG TABLET (FP) PO SCH (22:59)
[2023-01-22] MEDS: MELATONIN 5 MG TABLETS PO SCH (23:00)
[2023-01-23] MEDS: chlordiazePOXIDE HCL 10 MG CAPSULE PO SCH ×3 (06:36→18:00)
[2023-01-23] MEDS: NICOTINE 14 MG/24 HOURS TOPICAL PATCH TD SCH ×2 (10:52→10:57)
[2023-01-23] MEDS: METHOCARBAMOL 500 MG TABLET PO PRN (10:53)
[2023-01-23] MEDS: PRENATAL VITAMINS W/ FOLIC ACID TABLET (FP) PO SCH ×2 (10:53→11:05)
[2023-01-23 13:11] VITALS: RESP 18
[2023-01-23 15:17] LABS: HEMATOCRIT 33.5 % (35.4-49); HEMOGLOBIN 11.1 GM/dL (11.7-16.9); MCH 29.7 pg (25.7-33.7); MCHC 33.2 g/dl (32.0-35.9); MEAN CELL VOLUME 89.4 fl (80-96); MEAN PLT VOLUME 8.2 fl (7.5-11.1); PLATELET COUNT 311 10^3/uL (134-434); RBC 3.75 M/mm3 (4.00-5.60); RDW 14.3 % (11.9-15.9); WHITE BLOOD COUNT 15.1 K/mm3 (4.0-10.0)
[2023-01-23 15:18] LABS: BLOOD UREA NITROGEN 14.4 mg/dL (7-18); CALCIUM 9.2 mg/dL (8.5-10.1)
[2023-01-23 15:19] LABS: ALBUMIN 2.9 g/dl (3.4-5.0)
[2023-01-23 15:23] LABS: BILIRUBIN,TOTAL 0.4 mg/dL (0.2-1); TOT PROT 6.6 g/dl (6.4-8.2)
[2023-01-23] MEDS: THIAMINE HCL 100 MG TABLET (FP) PO SCH (22:39)
[2023-01-23] MEDS: QUEtiapine FUMARATE 100 MG TABLET (FP) PO SCH (22:39)
[2023-01-23] MEDS: MELATONIN 5 MG TABLETS PO SCH (22:48)
[2023-01-24] MEDS ORDERED: chlordiazePOXIDE HCL 10 MG CAPSULE PO ONE (05:00)
[2023-01-24 06:47] VITALS: BP 137/81; PULSE 73; TEMP 97.6
[2023-01-24] MEDS: NICOTINE 14 MG/24 HOURS TOPICAL PATCH TD SCH (10:32)
[2023-01-24] MEDS: PRENATAL VITAMINS W/ FOLIC ACID TABLET (FP) PO SCH (10:32)
[2023-01-24 14:22] LABS: HEMATOCRIT 34.9 % (35.4-49); HEMOGLOBIN 11.6 GM/dL (11.7-16.9); MCHC 33.4 g/dl (32.0-35.9); MEAN CELL VOLUME 89.8 fl (80-96); MEAN PLT VOLUME 9.2 fl (7.5-11.1); PLATELET COUNT 323 10^3/uL (134-434); RBC 3.89 M/mm3 (4.00-5.60); RDW 14.4 % (11.9-15.9); WHITE BLOOD COUNT 10.1 K/mm3 (4.0-10.0)
[2023-01-24 15:11] LABS: ANISOCYTOSIS 1+; MACROCYTOSIS 0
== END 2023-01-24 09:56 | disposition home or self-care (01) | DRG 774 ==
LOC: YASAS 19:59 → Y6N 01-19 02:31
PROVIDERS: ADMIT Allergy & Immunology; ATTEND Surgery
PROC: HZ2ZZZZ Detoxification Services for Substance Abuse Treatment (ICD-10-PCS; principal; 2023-01-19)
DX: F10.230 Alcohol dependence with withdrawal, uncomplicated (principal); F14.20 Cocaine dependence, uncomplicated; F13.10 Sedative, hypnotic or anxiolytic abuse, uncomplicated; F17.210 Nicotine dependence, cigarettes, uncomplicated; F31.9 Bipolar disorder, unspecified; F19.282 Other psychoactive substance dependence with psychoactive substance-induced sleep disorder; F19.24 Other psychoactive substance dependence with psychoactive substance-induced mood disorder; U07.1 COVID-19; I10 Essential (primary) hypertension; R76.11 Nonspecific reaction to tuberculin skin test without active tuberculosis; Z28.310 Unvaccinated for COVID-19; Z28.9 Immunization not carried out for unspecified reason
CPT/HCPCS: 36415; 80053; 85025; 85027; 86780; 87811; C9803-CS; U0003; U0005

== ENCOUNTER 2023-03-04 13:37 | Inpatient (IN) | payer OTHER ==
[2023-03-04 14:12] VITALS: BMI 24.3
[2023-03-04] MEDS ORDERED: MAG HYDROX/AL HYDROX/SIMETH 30 ML UNIT-DOSE CUP PO PRN (14:25)
[2023-03-04] MEDS ORDERED: guaiFENesin 600 MG TABLET.ER (FP) PO PRN (14:25)
[2023-03-04] MEDS ORDERED: NICOTINE 10 MG CARTRIDGE (INHALER) IH PRN (14:25)
[2023-03-04] MEDS ORDERED: POLYETHYLENE GLYCOL (HEALTHYLAX) 3350 17 GM PACKET PO PRN (14:25)
[2023-03-04] MEDS ORDERED: DICYCLOMINE HCL 10 MG CAPSULE PO PRN (14:25)
[2023-03-04] MEDS ORDERED: BENZOCAINE/MENTHOL (CHLORASEPTIC ) LOZENGE MM PRN (14:25)
[2023-03-04] MEDS ORDERED: BISMUTH SUBSALICYLATE 262 MG/15 ML BTL PO PRN (14:25)
[2023-03-04] MEDS ORDERED: ACETAMINOPHEN 325 MG TABLET (FP) PO PRN (14:25)
[2023-03-04] MEDS ORDERED: ONDANSETRON *ODT* 4 MG TABLET SL PRN (14:25)
[2023-03-04] MEDS ORDERED: MELATONIN 5 MG TABLETS PO PRN (14:25)
[2023-03-04] MEDS ORDERED: LOPERAMIDE HCL 2 MG CAPSULE PO PRN (14:25)
[2023-03-04] MEDS ORDERED: BENZONATATE 200 MG CAPSULE PO PRN (14:25)
[2023-03-04] MEDS ORDERED: MAGNESIUM HYDROX 2400MG/30ML ORAL SUSPENSION 30 ML CUP PO PRN (14:25)
[2023-03-04] MEDS ORDERED: P-EPHED 60MG/TRIPROLIDI 2.5MG TABLET PO PRN (14:25)
[2023-03-04] MEDS ORDERED: NICOTINE POLACRILEX 2 MG GUM BUC PRN (14:25)
[2023-03-04] MEDS: hydrOXYzine PAMOATE 25 MG CAPSULE (FP) PO PRN (22:38)
[2023-03-04] MEDS: METHOCARBAMOL 500 MG TABLET PO PRN (22:38)
[2023-03-04] MEDS: THIAMINE HCL 100 MG TABLET (FP) PO SCH (22:38)
[2023-03-04] MEDS: LIDOCAINE PATCH REMOVAL MC SCH (22:41)
[2023-03-05] MEDS: IBUPROFEN 600 MG TABLET (FP) PO PRN ×3 (01:17→17:30)
[2023-03-05] MEDS ORDERED: chlordiazePOXIDE HCL 25 MG CAPSULE PO PRN (08:43)
[2023-03-05] MEDS: chlordiazePOXIDE HCL 25 MG CAPSULE PO SCH ×3 (10:34→22:09)
[2023-03-05] MEDS: METHOCARBAMOL 500 MG TABLET PO PRN ×2 (10:34→17:30)
[2023-03-05] MEDS: LIDOCAINE 5% TOPICAL PATCH TP SCH (10:34)
[2023-03-05] MEDS: PRENATAL VITAMINS W/ FOLIC ACID TABLET (FP) PO SCH (10:34)
[2023-03-05] MEDS: hydrOXYzine PAMOATE 25 MG CAPSULE (FP) PO PRN ×2 (10:34→17:30)
[2023-03-05 12:30] LABS: HEMATOCRIT 34.5 % (35.4-49); HEMOGLOBIN 11.8 GM/dL (11.7-16.9); MCH 29.7 pg (25.7-33.7); MCHC 34.1 g/dl (32.0-35.9); MEAN CELL VOLUME 87.1 fl (80-96); MEAN PLT VOLUME 8.8 fl (7.5-11.1); PLATELET COUNT 263 10^3/uL (134-434); RBC 3.97 M/mm3 (4.00-5.60); RDW 14.4 % (11.9-15.9); WHITE BLOOD COUNT 5.3 K/mm3 (4.0-10.0)
[2023-03-05 12:31] LABS: BLOOD UREA NITROGEN 17.7 mg/dL (7-18)
[2023-03-05 12:36] LABS: BILIRUBIN,TOTAL 0.1 mg/dL (0.2-1); TOT PROT 6.2 g/dl (6.4-8.2)
[2023-03-05] MEDS: THIAMINE HCL 100 MG TABLET (FP) PO SCH (22:09)
[2023-03-05] MEDS: LIDOCAINE PATCH REMOVAL MC SCH (22:10)
[2023-03-05] MEDS: QUEtiapine FUMARATE 100 MG TABLET (FP) PO SCH (22:13)
[2023-03-06] MEDS: chlordiazePOXIDE HCL 25 MG CAPSULE PO SCH ×4 (05:56→22:40)
[2023-03-06] MEDS: IBUPROFEN 600 MG TABLET (FP) PO PRN (08:42)
[2023-03-06] MEDS: LIDOCAINE 5% TOPICAL PATCH TP SCH (10:55)
[2023-03-06] MEDS: PRENATAL VITAMINS W/ FOLIC ACID TABLET (FP) PO SCH (10:55)
[2023-03-06] MEDS: IBUPROFEN 400 MG TABLET (FP) PO PRN (18:01)
[2023-03-06] MEDS: THIAMINE HCL 100 MG TABLET (FP) PO SCH (22:40)
[2023-03-06] MEDS: QUEtiapine FUMARATE 100 MG TABLET (FP) PO SCH (22:40)
[2023-03-06] MEDS: LIDOCAINE PATCH REMOVAL MC SCH (22:42)
[2023-03-07] MEDS: chlordiazePOXIDE HCL 25 MG CAPSULE PO SCH ×4 (05:30→22:10)
[2023-03-07] MEDS: PRENATAL VITAMINS W/ FOLIC ACID TABLET (FP) PO SCH (10:46)
[2023-03-07] MEDS: hydrOXYzine PAMOATE 25 MG CAPSULE (FP) PO PRN ×2 (10:46→22:10)
[2023-03-07] MEDS: IBUPROFEN 400 MG TABLET (FP) PO PRN (10:47)
[2023-03-07] MEDS: METHOCARBAMOL 500 MG TABLET PO PRN ×2 (10:47→22:10)
[2023-03-07] MEDS: LIDOCAINE 5% TOPICAL PATCH TP SCH (10:49)
[2023-03-07] MEDS: METHYL SALICYLATE/MENTHOL OINT 30 GM TUBE TP SCH ×2 (12:13→22:12)
[2023-03-07] MEDS: THIAMINE HCL 100 MG TABLET (FP) PO SCH (22:10)
[2023-03-07] MEDS: QUEtiapine FUMARATE 100 MG TABLET (FP) PO SCH (22:10)
[2023-03-07] MEDS: LIDOCAINE PATCH REMOVAL MC SCH (22:26)
[2023-03-08] MEDS ORDERED: chlordiazePOXIDE HCL 10 MG CAPSULE PO PRN
[2023-03-08] MEDS: chlordiazePOXIDE HCL 10 MG CAPSULE PO SCH ×2 (05:33→10:46)
[2023-03-08 09:17] VITALS: BP 138/94; PULSE 100; RESP 20; TEMP 97.3
[2023-03-08] MEDS: METHYL SALICYLATE/MENTHOL OINT 30 GM TUBE TP SCH (10:46)
[2023-03-08] MEDS: PRENATAL VITAMINS W/ FOLIC ACID TABLET (FP) PO SCH (10:46)
[2023-03-08] MEDS: LIDOCAINE 5% TOPICAL PATCH TP SCH (10:46)
[2023-03-09] MEDS ORDERED: chlordiazePOXIDE HCL 10 MG CAPSULE PO SCH (05:00)
[2023-03-10] MEDS ORDERED: chlordiazePOXIDE HCL 10 MG CAPSULE PO ONE (05:00)
== END 2023-03-08 10:05 | disposition home or self-care (01) | DRG 774 ==
LOC: YASAS 13:37 → Y6N 14:25 → UNDOADMIN 15:30
PROVIDERS: ADMIT Allergy & Immunology; ATTEND Surgery
PROC: HZ2ZZZZ Detoxification Services for Substance Abuse Treatment (ICD-10-PCS; principal; 2023-03-04)
DX: F10.230 Alcohol dependence with withdrawal, uncomplicated (principal); F14.20 Cocaine dependence, uncomplicated; F17.210 Nicotine dependence, cigarettes, uncomplicated; F19.282 Other psychoactive substance dependence with psychoactive substance-induced sleep disorder; F39 Unspecified mood [affective] disorder; I10 Essential (primary) hypertension; R76.11 Nonspecific reaction to tuberculin skin test without active tuberculosis; Z28.310 Unvaccinated for COVID-19; Z28.9 Immunization not carried out for unspecified reason
CPT/HCPCS: 36415; 80053; 85027; 86780; C9803-CS; U0003; U0005

== ENCOUNTER 2023-04-15 12:21 | Inpatient (IN) | payer OTHER ==
[2023-04-15 14:17] VITALS: BMI 25.8
[2023-04-15] MEDS ORDERED: LOPERAMIDE HCL 2 MG CAPSULE PO PRN (15:07)
[2023-04-15] MEDS ORDERED: guaiFENesin 600 MG TABLET.ER (FP) PO PRN (15:07)
[2023-04-15] MEDS ORDERED: MAGNESIUM HYDROX 2400MG/30ML ORAL SUSPENSION 30 ML CUP PO PRN (15:07)
[2023-04-15] MEDS ORDERED: DICYCLOMINE HCL 10 MG CAPSULE PO PRN (15:07)
[2023-04-15] MEDS ORDERED: MAG HYDROX/AL HYDROX/SIMETH 30 ML UNIT-DOSE CUP PO PRN (15:07)
[2023-04-15] MEDS ORDERED: IBUPROFEN 400 MG TABLET (FP) PO PRN (15:07)
[2023-04-15] MEDS ORDERED: BISMUTH SUBSALICYLATE 262 MG/15 ML BTL PO PRN (15:07)
[2023-04-15] MEDS ORDERED: BENZOCAINE/MENTHOL (CHLORASEPTIC ) LOZENGE MM PRN (15:07)
[2023-04-15] MEDS ORDERED: chlordiazePOXIDE HCL 25 MG CAPSULE PO PRN (15:07)
[2023-04-15] MEDS ORDERED: NALOXONE HCL (KLOXXADO) 8 MG SPRAY NS PRN (15:07)
[2023-04-15] MEDS ORDERED: NALOXONE HCL 0.4 MG/ML VIAL IM PRN (15:07)
[2023-04-15] MEDS ORDERED: BENZONATATE 200 MG CAPSULE PO PRN (15:07)
[2023-04-15] MEDS ORDERED: ACETAMINOPHEN 325 MG TABLET (FP) PO PRN (15:07)
[2023-04-15] MEDS ORDERED: POLYETHYLENE GLYCOL (HEALTHYLAX) 3350 17 GM PACKET PO PRN (15:07)
[2023-04-15] MEDS ORDERED: ONDANSETRON *ODT* 4 MG TABLET SL PRN (15:07)
[2023-04-15] MEDS ORDERED: NICOTINE 10 MG CARTRIDGE (INHALER) IH PRN (15:07)
[2023-04-15] MEDS ORDERED: MELATONIN 5 MG TABLETS PO SCH (22:00)
[2023-04-15] MEDS: chlordiazePOXIDE HCL 25 MG CAPSULE PO SCH (22:40)
[2023-04-15] MEDS: THIAMINE HCL 100 MG TABLET (FP) PO SCH (22:42)
[2023-04-16] MEDS: chlordiazePOXIDE HCL 25 MG CAPSULE PO SCH ×4 (05:59→21:59)
[2023-04-16] MEDS: NICOTINE 14 MG/24 HOURS TOPICAL PATCH TD SCH (10:26)
[2023-04-16] MEDS: PRENATAL VITAMINS W/ FOLIC ACID TABLET (FP) PO SCH (10:26)
[2023-04-16] MEDS: amLODIPine BESYLATE 10 MG TABLET (FP) PO SCH (10:26)
[2023-04-16] MEDS: QUEtiapine FUMARATE 100 MG TABLET (FP) PO SCH (21:59)
[2023-04-16] MEDS: THIAMINE HCL 100 MG TABLET (FP) PO SCH (21:59)
[2023-04-17] MEDS: chlordiazePOXIDE HCL 25 MG CAPSULE PO SCH ×5 (06:08→23:19)
[2023-04-17] MEDS: NICOTINE 14 MG/24 HOURS TOPICAL PATCH TD SCH (10:41)
[2023-04-17] MEDS: amLODIPine BESYLATE 10 MG TABLET (FP) PO SCH (10:43)
[2023-04-17] MEDS: PRENATAL VITAMINS W/ FOLIC ACID TABLET (FP) PO SCH (10:43)
[2023-04-17] MEDS: METHOCARBAMOL 500 MG TABLET PO PRN ×2 (10:43→22:54)
[2023-04-17] MEDS: IBUPROFEN 600 MG TABLET (FP) PO PRN ×2 (10:43→17:26)
[2023-04-17] MEDS: THIAMINE HCL 100 MG TABLET (FP) PO SCH (22:54)
[2023-04-17] MEDS: QUEtiapine FUMARATE 100 MG TABLET (FP) PO SCH (22:54)
[2023-04-18] MEDS ORDERED: chlordiazePOXIDE HCL 10 MG CAPSULE PO PRN
[2023-04-18] MEDS: chlordiazePOXIDE HCL 10 MG CAPSULE PO SCH ×5 (05:55→22:48)
[2023-04-18] MEDS: NICOTINE 14 MG/24 HOURS TOPICAL PATCH TD SCH (10:11)
[2023-04-18] MEDS: amLODIPine BESYLATE 10 MG TABLET (FP) PO SCH (10:11)
[2023-04-18] MEDS: PRENATAL VITAMINS W/ FOLIC ACID TABLET (FP) PO SCH (10:11)
[2023-04-18] MEDS: LIDOCAINE 5% TOPICAL PATCH TP SCH ×2 (12:01→12:13)
[2023-04-18] MEDS ORDERED: LIDOCAINE PATCH REMOVAL MC SCH (22:00)
[2023-04-18] MEDS: THIAMINE HCL 100 MG TABLET (FP) PO SCH (22:45)
[2023-04-18] MEDS: QUEtiapine FUMARATE 100 MG TABLET (FP) PO SCH (22:45)
[2023-04-19] MEDS ORDERED: chlordiazePOXIDE HCL 10 MG CAPSULE PO SCH (05:00)
[2023-04-19] MEDS: LIDOCAINE 5% TOPICAL PATCH TP SCH (11:00)
[2023-04-19] MEDS: PRENATAL VITAMINS W/ FOLIC ACID TABLET (FP) PO SCH (11:00)
[2023-04-19] MEDS: NICOTINE 14 MG/24 HOURS TOPICAL PATCH TD SCH (11:00)
[2023-04-19] MEDS: amLODIPine BESYLATE 10 MG TABLET (FP) PO SCH (11:00)
[2023-04-19 12:55] VITALS: BP 127/96; PULSE 80; RESP 17; TEMP 98.4
[2023-04-20] MEDS ORDERED: chlordiazePOXIDE HCL 10 MG CAPSULE PO ONE (05:00)
== END 2023-04-19 14:40 | disposition home or self-care (01) | DRG 774 ==
LOC: YASAS 12:21 → Y6N 15:54
PROVIDERS: ADMIT Allergy & Immunology; ATTEND Surgery
PROC: HZ2ZZZZ Detoxification Services for Substance Abuse Treatment (ICD-10-PCS; principal; 2023-04-15)
DX: F10.230 Alcohol dependence with withdrawal, uncomplicated (principal); F14.20 Cocaine dependence, uncomplicated; F17.210 Nicotine dependence, cigarettes, uncomplicated; F19.282 Other psychoactive substance dependence with psychoactive substance-induced sleep disorder; F19.24 Other psychoactive substance dependence with psychoactive substance-induced mood disorder; I10 Essential (primary) hypertension; R76.11 Nonspecific reaction to tuberculin skin test without active tuberculosis
CPT/HCPCS: C9803-CS; U0003; U0005

== ENCOUNTER 2023-07-31 12:44 | Inpatient (IN) | payer OTHER ==
[2023-07-31 14:01] VITALS: BMI 23.1
[2023-07-31] MEDS ORDERED: IBUPROFEN 600 MG TABLET (FP) PO PRN (18:25)
[2023-07-31] MEDS ORDERED: BENZOCAINE/MENTHOL (CHLORASEPTIC ) LOZENGE MM PRN (18:25)
[2023-07-31] MEDS ORDERED: DICYCLOMINE HCL 10 MG CAPSULE PO PRN (18:25)
[2023-07-31] MEDS ORDERED: MAG HYDROX/AL HYDROX/SIMETH 30 ML UNIT-DOSE CUP PO PRN (18:25)
[2023-07-31] MEDS ORDERED: ACETAMINOPHEN 325 MG TABLET (FP) PO PRN (18:25)
[2023-07-31] MEDS ORDERED: NALOXONE HCL (KLOXXADO) 8 MG SPRAY NS PRN (18:25)
[2023-07-31] MEDS ORDERED: MAGNESIUM HYDROX 2400MG/30ML ORAL SUSPENSION 30 ML CUP PO PRN (18:25)
[2023-07-31] MEDS ORDERED: ONDANSETRON *ODT* 4 MG TABLET SL PRN (18:25)
[2023-07-31] MEDS ORDERED: guaiFENesin 600 MG TABLET.ER (FP) PO PRN (18:25)
[2023-07-31] MEDS ORDERED: NALOXONE HCL 0.4 MG/ML VIAL IM PRN (18:25)
[2023-07-31] MEDS ORDERED: POLYETHYLENE GLYCOL (HEALTHYLAX) 3350 17 GM PACKET PO PRN (18:25)
[2023-07-31] MEDS ORDERED: IBUPROFEN 400 MG TABLET (FP) PO PRN (18:25)
[2023-07-31] MEDS ORDERED: BISMUTH SUBSALICYLATE 524 MG/30 ML PO PRN (18:25)
[2023-07-31] MEDS ORDERED: BENZONATATE 200 MG CAPSULE PO PRN (18:25)
[2023-07-31] MEDS ORDERED: LOPERAMIDE HCL 2 MG CAPSULE PO PRN (18:25)
[2023-07-31] MEDS: hydrOXYzine PAMOATE 25 MG CAPSULE (FP) PO PRN (22:33)
[2023-07-31] MEDS: MELATONIN 5 MG TABLETS PO SCH (22:33)
[2023-07-31] MEDS: THIAMINE HCL 100 MG TABLET (FP) PO SCH (22:33)
[2023-08-01] MEDS: PRENATAL VITAMINS W/ FOLIC ACID TABLET (FP) PO SCH (10:55)
[2023-08-01] MEDS ORDERED: chlordiazePOXIDE HCL 25 MG CAPSULE PO PRN (13:51)
[2023-08-01] MEDS: chlordiazePOXIDE HCL 25 MG CAPSULE PO SCH ×2 (17:20→22:42)
[2023-08-01] MEDS: MELATONIN 5 MG TABLETS PO SCH (22:41)
[2023-08-01] MEDS: QUEtiapine FUMARATE 100 MG TABLET (FP) PO SCH (22:41)
[2023-08-01] MEDS: THIAMINE HCL 100 MG TABLET (FP) PO SCH (22:44)
[2023-08-02] MEDS: chlordiazePOXIDE HCL 25 MG CAPSULE PO SCH ×4 (06:00→22:54)
[2023-08-02] MEDS: PRENATAL VITAMINS W/ FOLIC ACID TABLET (FP) PO SCH (10:32)
[2023-08-02] MEDS: amLODIPine BESYLATE 10 MG TABLET (FP) PO SCH (10:32)
[2023-08-02 11:51] LABS: POTASSIUM 4.5 mmol/L (3.5-5.1)
[2023-08-02 11:56] LABS: HEMATOCRIT 37.8 % (35.4-49); HEMOGLOBIN 12.4 GM/dL (11.7-16.9); MCHC 32.9 g/dl (32.0-35.9); MEAN CELL VOLUME 88.3 fl (80-96); MEAN PLT VOLUME 9.5 fl (7.5-11.1); PLATELET COUNT 238 10^3/uL (134-434); RBC 4.28 M/mm3 (4.00-5.60); RDW 13.5 % (11.9-15.9)
[2023-08-02 12:41] LABS: BLOOD UREA NITROGEN 13.6 mg/dL (7-18); CALCIUM 9.2 mg/dL (8.5-10.1)
[2023-08-02 12:42] LABS: ALBUMIN 3.1 g/dl (3.4-5.0)
[2023-08-02 12:43] LABS: BILIRUBIN,TOTAL 0.7 mg/dL (0.2-1)
[2023-08-02 12:44] LABS: TOT PROT 6.6 g/dl (6.4-8.2)
[2023-08-02] MEDS: THIAMINE HCL 100 MG TABLET (FP) PO SCH (22:53)
[2023-08-02] MEDS: MELATONIN 5 MG TABLETS PO SCH (22:53)
[2023-08-02] MEDS: QUEtiapine FUMARATE 100 MG TABLET (FP) PO SCH (22:53)
[2023-08-03] MEDS: chlordiazePOXIDE HCL 25 MG CAPSULE PO SCH ×4 (05:55→23:10)
[2023-08-03] MEDS: amLODIPine BESYLATE 10 MG TABLET (FP) PO SCH (10:37)
[2023-08-03] MEDS: METHOCARBAMOL 500 MG TABLET PO PRN ×2 (10:37→23:09)
[2023-08-03] MEDS: PRENATAL VITAMINS W/ FOLIC ACID TABLET (FP) PO SCH (10:38)
[2023-08-03] MEDS: MELATONIN 5 MG TABLETS PO SCH (23:08)
[2023-08-03] MEDS: THIAMINE HCL 100 MG TABLET (FP) PO SCH (23:09)
[2023-08-03] MEDS: hydrOXYzine PAMOATE 25 MG CAPSULE (FP) PO PRN (23:09)
[2023-08-03] MEDS: QUEtiapine FUMARATE 100 MG TABLET (FP) PO SCH (23:09)
[2023-08-04] MEDS ORDERED: chlordiazePOXIDE HCL 10 MG CAPSULE PO PRN
[2023-08-04] MEDS: chlordiazePOXIDE HCL 10 MG CAPSULE PO SCH ×4 (05:35→22:40)
[2023-08-04] MEDS: PRENATAL VITAMINS W/ FOLIC ACID TABLET (FP) PO SCH (10:13)
[2023-08-04] MEDS: amLODIPine BESYLATE 10 MG TABLET (FP) PO SCH (10:13)
[2023-08-04] MEDS: METHOCARBAMOL 500 MG TABLET PO PRN (10:14)
[2023-08-04] MEDS: THIAMINE HCL 100 MG TABLET (FP) PO SCH (22:40)
[2023-08-04] MEDS: QUEtiapine FUMARATE 100 MG TABLET (FP) PO SCH (22:40)
[2023-08-04] MEDS: MELATONIN 5 MG TABLETS PO SCH (22:40)
[2023-08-05] MEDS: chlordiazePOXIDE HCL 10 MG CAPSULE PO SCH ×2 (05:51→17:48)
[2023-08-05] MEDS: amLODIPine BESYLATE 10 MG TABLET (FP) PO SCH (10:22)
[2023-08-05] MEDS: PRENATAL VITAMINS W/ FOLIC ACID TABLET (FP) PO SCH (10:23)
[2023-08-05] MEDS: THIAMINE HCL 100 MG TABLET (FP) PO SCH (22:32)
[2023-08-05] MEDS: QUEtiapine FUMARATE 100 MG TABLET (FP) PO SCH (22:32)
[2023-08-05] MEDS: MELATONIN 5 MG TABLETS PO SCH (22:32)
[2023-08-06] MEDS ORDERED: chlordiazePOXIDE HCL 10 MG CAPSULE PO ONE (05:00)
[2023-08-06 09:03] VITALS: BP 110/71; PULSE 74; RESP 16; TEMP 98.6
[2023-08-06] MEDS: amLODIPine BESYLATE 10 MG TABLET (FP) PO SCH (10:25)
[2023-08-06] MEDS: PRENATAL VITAMINS W/ FOLIC ACID TABLET (FP) PO SCH (10:26)
== END 2023-08-06 11:36 | disposition home or self-care (01) | DRG 774 ==
LOC: YASAS 12:44 → Y3N 18:38
PROVIDERS: ADMIT Allergy & Immunology; ATTEND Surgery
PROC: HZ2ZZZZ Detoxification Services for Substance Abuse Treatment (ICD-10-PCS; principal; 2023-07-31)
DX: F10.230 Alcohol dependence with withdrawal, uncomplicated (principal); F14.20 Cocaine dependence, uncomplicated; F17.210 Nicotine dependence, cigarettes, uncomplicated; F19.24 Other psychoactive substance dependence with psychoactive substance-induced mood disorder; G47.00 Insomnia, unspecified; I10 Essential (primary) hypertension; R76.11 Nonspecific reaction to tuberculin skin test without active tuberculosis; Z28.310 Unvaccinated for COVID-19; Z28.9 Immunization not carried out for unspecified reason
CPT/HCPCS: 36415; 80053; 85027; 86780; 87635